=== PATIENT | female | born 1955 | race Caucasian/White ===

== ENCOUNTER 2017-05-27 11:38 | Inpatient (IN) ==
[2017-05-27] MEDS ORDERED: 0.9 % Sodium Chloride 1,000 ML IVC ONE (11:41)
[2017-05-27] MEDS ORDERED: Ondansetron 4 MG/2 ML VIAL IVP ONE (11:41)
--- NOTE | 2017-05-27 11:43 | Emergency Department Note ---
Disposition Clinical Impression: ANUSHA (acute kidney injury), Hypokalemia, Nausea and vomiting Disposition: Admitted As Inpatient Condition: Good General Adult HPI - General Chief complaint: ED Nausea/Vomiting/Diarrhea Stated complaint: N/V Time Seen by Provider: 05/27/17 11:41 - Related Data Home Medications Medication Instructions Recorded Confirmed Albuterol Sulfate [Albuterol 2 puff IH Q4-6H PRN 05/01/17 05/27/17 Inhaler] Aspirin [Lo-Dose Aspirin EC] 81 mg PO DAILY 05/01/17 05/27/17 Budesonide/Formoterol 160/4.5 2 puff IH BIDR 05/01/17 05/27/17 [Symbicort 160/4.5] Bupropion HCl [Wellbutrin Xl] 300 mg PO DAILY 05/01/17 05/27/17 Gabapentin [Neurontin] 400 mg PO TID 05/01/17 05/27/17 Metoclopramide [Reglan] 10 mg PO QIDAC 05/01/17 05/27/17 OLANZapine [Zyprexa] 5 mg PO DAILY 05/01/17 05/27/17 Ondansetron [Zofran] 8 mg PO Q8H PRN 05/01/17 05/27/17 Ranitidine HCl [Zantac] 300 mg PO BID 05/01/17 05/27/17 Rosuvastatin [Crestor] 40 mg PO HS 05/01/17 05/27/17 Sertraline [Zoloft] 100 mg PO DAILY 05/01/17 05/27/17 Tiotropium [Spiriva] 18 mcg IH DAILY 05/01/17 05/27/17 Tizanidine HCl 2 mg PO BID 05/01/17 05/27/17 Topiramate [Topamax] 50 mg PO BID 05/01/17 05/27/17 diazePAM [Valium] 10 mg PO TID PRN 05/01/17 05/27/17 Cholecalciferol (D-3) [Vitamin D] 1,000 unit PO DAILY 05/27/17 05/27/17 Docusate [Colace] 100 mg PO DAILY 05/27/17 05/27/17 Folic Acid 1 mg PO DAILY 05/27/17 05/27/17 Previous Rx's Medication Instructions Recorded Morphine Sulfate [Arymo ER] 15 mg PO BID #6 tab.po.er 05/05/17 Oxycodone HCl/Acetaminophen 1 tab PO 5XD PRN #7 tablet 05/05/17 [Percocet 10-325 mg Tablet] Allergies Allergy/AdvReac Type Severity Reaction Status Date / Time No Known Allergies Allergy Verified 04/30/17 20:44 Past Medical History - Past Medical History Medical history: Reports: aortic aneurysm, COPD, hyperlipidemia, TIA Surgical history: Reports: herniorrhaphy, hysterectomy, orthopedic, other, other Psychiatric history: Reports: anxiety, depression, panic disorder, schizophrenia 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 - Social History Smoking Status: Former smoker Smokeless Tobacco Status: No Alcohol use: Reports: none Drug use: Reports: none Course Vital Signs Temperature 97.0 F L 05/27/17 11:41 Pulse Rate 66 05/27/17 11:41 Respiratory Rate 26 05/27/17 11:41 Blood Pressure 135/81 05/27/17 11:41 O2 Sat by Pulse Oximetry 98 05/27/17 11:41 Temperature 98.4 F 05/28/17 06:36 Pulse Rate 79 05/28/17 06:36 Respiratory Rate 16 05/28/17 08:20 Blood Pressure 135/81 05/28/17 06:36 O2 Sat by Pulse Oximetry 95 05/28/17 08:20 Oxygen Delivery Oxygen Delivery Room Air Medical Decision Making - Lab Data Result diagrams: 05/28/17 01:13 EST 05/28/17 01:13 EST Lab Results 05/27/17 05/27/17 05/27/17 Range/Units 11:55 11:55 12:28 WBC 7.9 (4.3-11.1) K/mcL RBC 4.23 (3.82-4.97) M/mcL Hgb 13.8 (11.5-15.4) g/dL Hct 41.3 (35.3-44.9) % MCV 97.6 (83.0-100.0) fL MCH 32.6 (28.0-33.3) pg MCHC 33.4 (31.6-35.5) g/dL RDW 15.8 H (11.5-14.5) % Plt Count 284 (140-400) K/mcL MPV 10.8 (9.4-12.4) fL Immature Gran % 0.4 (0-4) % Seg Neutrophils % 87.5 % Lymphocytes % 8.4 % Monocytes % 3.3 % Eosinophils % 0.0 % Basophils % 0.4 % Neutrophils # 6.9 (1.6-8.9) K/mcL Lymphocytes # 0.7 (0.6-4.6) K/mcL Monocytes # 0.3 (0.0-1.3) K/mcL Eosinophils # 0.0 (0.0-0.6) K/mcL Basophils # 0.0 (0.0-0.2) K/mcL Sodium 146 H (136-145) mEq/L Potassium 2.3 L* (3.5-4.5) mEq/L Chloride 107 (98-109) mEq/L Carbon Dioxide 23 (19-29) mEq/L BUN 6 L (7-20) mg/dL Creatinine 1.15 H (0.57-1.11) mg/dL Est GFR ( Amer) 58 L (> 60) Est GFR (Non-Af Amer) 48 L (> 60) BUN/Creatinine Ratio 5 L (6-26) Glucose 119 H (70-99) mg/dL Calculated Osmolality 301 H (280-300) Calcium 9.5 (8.6-10.8) mg/dL Magnesium 1.8 (1.6-2.6) mg/dL Total Bilirubin 0.3 (0.2-1.2) mg/dL AST 37 H (5-34) Units/L ALT 13 (0-55) Units/L Alkaline Phosphatase 208 H (38-126) Units/L Serum Total Protein 7.1 (6.0-8.3) g/dL Albumin 3.3 L (3.5-5.0) g/dL Globulin 3.8 H (2.4-3.5) g/dL Albumin/Globulin Ratio 0.9 L (1.1-2.2) Lipase 34 (8-78) Units/L Urine Color Yellow (Yellow) Urine Clarity Cloudy A (Clear) Urine pH 6.0 (5.0-8.0) pH Units Ur Specific [place] > 1.030 H (1.010-1.025) Urine Protein 30 H (Neg-Trace) mg/dL Urine Glucose (UA) Normal (Normal) mg/dL Urine Ketones Negative (Negative) mg/dL Urine Blood Large H (Negative) Urine Nitrite Negative (Negative) Urine Bilirubin Negative (Negative) Urine Urobilinogen Normal (Normal) mg/dL Ur Leukocyte Esterase Negative (Negative) Urine Microscopic RBC 0-3 (0-3) per hpf Urine Microscopic WBC 5-15 H (0-3) per hpf Ur Squamous Epith Cells Many H (None-Few) per lpf Urine Bacteria None Seen (None-Few) per hpf Hyaline Casts Moderate H (None-Few) per lpf Ur Culture Indicated? NO (NO) Attestation Statement - Attestation Attestation: I examined this patient and my medical decision-making was reviewed with the Resident Physician. I agree with the documented findings, disposition and treatment plan as described except to the extent set forth below. [id number] time provided Patient arrives from home by EMS complaining of nausea and vomiting over the past 3 days. She states she is unable tolerate oral intake. She denies new pain, including abdominal pain, but states she does have back pain from fracturing her back 3 weeks ago. She is shaky appearing on exam. She is clutching an emesis bag. 13:05: Patient is hypokalemic. She refused oral potassium supplementation. We will request admission to the medicine service for potassium supplementation , ongoing hydration and continued evaluation.
--- NOTE | 2017-05-27 11:48 | Emergency Department Note ---
Disposition Clinical Impression: ANUSHA (acute kidney injury), Hypokalemia Nausea and vomiting Qualifiers: Vomiting type: unspecified Vomiting Intractability: unspecified Qualified Code( s): R11.2 - Nausea with vomiting, unspecified Disposition: Admitted As Inpatient Condition: Good Referrals: Jessica Espinoza MD [Primary Care Provider] - Forms: ED Satisfaction Letter Time of Disposition: 13:06 General Adult HPI - General Chief complaint: ED Nausea/Vomiting/Diarrhea Stated complaint: N/V Time Seen by Provider: 05/27/17 11:41 Source: patient, EMS Mode of arrival: EMS Limitations: no limitations Nursing Notes Reviewed: Yes Vital Signs Reviewed: Yes - History of Present Illness HPI Narrative: 62-year-old female presenting to the emergency department complaining of vomiting. Patient states the past 3 days she has had nausea and vomiting. She states she has mild discomfort in her abdomen at this time but this was due to all the vomiting she has done. Patient dry heaving in the room at this time. She denies any new occasions or changes in medications. She states she was previously admitted one month ago and was told she had low potassium. She states these symptoms are very similar to that episode. She states for the past 3 days she has had constant vomiting and has not been able to hold down any liquids or foods. Patient significant past medical history of COPD. Patient denies any chest pain, shortness of breath. - Related Data Home Medications Medication Instructions Recorded Confirmed Albuterol Sulfate [Albuterol 2 puff IH Q4-6H PRN 05/01/17 05/01/17 Inhaler] Aspirin [Lo-Dose Aspirin EC] 81 mg PO DAILY 05/01/17 05/01/17 Budesonide/Formoterol 160/4.5 2 puff IH BIDR 05/01/17 05/01/17 [Symbicort 160/4.5] Bupropion HCl [Wellbutrin Xl] 300 mg PO DAILY 05/01/17 05/01/17 Gabapentin [Neurontin] 400 mg PO TID 05/01/17 05/01/17 Meloxicam [Mobic] 15 mg PO DAILY 05/01/17 05/01/17 Metoclopramide [Reglan] 10 mg PO QIDAC 05/01/17 05/01/17 OLANZapine [Zyprexa] 5 mg PO DAILY 05/01/17 05/01/17 Ondansetron [Zofran] 8 mg PO BID PRN 05/01/17 05/01/17 Ranitidine HCl [Zantac] 300 mg PO BID 05/01/17 05/01/17 Rosuvastatin [Crestor] 40 mg PO HS 05/01/17 05/01/17 Sertraline [Zoloft] 100 mg PO DAILY 05/01/17 05/01/17 Tiotropium [Spiriva] 1 puff IH DAILY 05/01/17 05/01/17 Tizanidine HCl 2 mg PO BID 05/01/17 05/01/17 Topiramate [Topamax] 50 mg PO BID 05/01/17 05/01/17 diazePAM [Valium] 10 mg PO TID PRN 05/01/17 05/01/17 Previous Rx's Medication Instructions Recorded Morphine Sulfate [Arymo ER] 15 mg PO BID #6 tab.po.er 05/05/17 Oxycodone HCl/Acetaminophen 1 tab PO 5XD PRN #7 tablet 05/05/17 [Percocet 10-325 mg Tablet] Allergies Allergy/AdvReac Type Severity Reaction Status Date / Time No Known Allergies Allergy Verified 04/30/17 20:44 All systems ED: reviewed and negative except as stated. Constitutional: Denies: fever, chills Eyes: Reports: as per HPI ENT ED: Reports: as per HPI Cardiovascular: Denies: chest pain, palpitations Respiratory: Denies: cough, dyspnea, wheezes Gastrointestinal: Reports: abdominal pain, nausea, vomiting. Denies: diarrhea Genitourinary: Reports: as per HPI Musculoskeletal: Reports: as per HPI Integumentary: Denies: rash, abrasion, lesions Neurological: Reports: as per HPI Psychiatric: Reports: as per HPI Endocrine: Reports: as per HPI Hematological/Lymphatic: Reports: as per HPI Allergic/Immunologic: Reports: as per HPI Past Medical History - Past Medical History Attestation: Yes The following information was validated with the patient. 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 Absent: scleral icterus, conjunctival injection - ENT ENT exam: normal exam, normal oropharynx, mucous membranes dry - Chest Chest inspection: Present: normal inspection, symmetric chest wall rise. Absent : tenderness, rash - Respiratory Respiratory exam: Present: normal lung sounds bilaterally. Absent: respiratory distress, wheezes - Cardiovascular Cardiovascular exam: Present: regular rate, normal rhythm, normal heart sounds - Abdominal Exam Abdominal exam: Present: soft, tenderness, normal bowel sounds. Absent: distention, guarding, rebound, rigidity, organomegaly, Rodriguez's sign, Rovsing's sign, tenderness at McBur[place]'s Point Abdominal tenderness: Present: diffuse, mild - Extremities Exam Extremities exam: Present: normal inspection, full ROM - Neurological Exam Neurological exam: Present: alert, oriented X3 - Psychiatric Psychiatric exam: Present: normal affect, normal mood - Skin Skin exam: Present: warm, intact Course Course Narrative: 62-year-old female presented to the emergency department complaining of vomiting for 3 days. Patient was seen approximately one month ago for similar symptoms and was found to be hypokalemic. We will obtain basic lab work pending CBC, CMP, lipase and magnesium level. We also obtained a UA. We will provide the patient with nausea control this time. Also give her a liter of fluid. Disposition pending results. Patient's alert and oriented times syndrome with stable vital signs at this time. Patient agrees with this plan. - Reevaluation(s) Reevaluation #1: Patient noted to be hypokalemic at 2.3. Magnesium within normal limits at 1.8. EKG within normal limits. We will admit the patient at this time for nausea and vomiting along with hypokalemia. Hospitalist has been paged. Patient's alert and oriented 3 in the room with stable vital signs. Time: 12:55 Reevaluation #2: Patient refuses oral potassium replacement. IV potassium replacement started. Patient agrees to be admitted at this time. She is alert and oriented 3 in the room with stable vital signs. Dr. Palafox accepts the patient. Time: 13:05 Vital Signs Temperature 97.0 F L 05/27/17 11:41 Pulse Rate 66 05/27/17 11:41 Respiratory Rate 26 05/27/17 11:41 Blood Pressure 135/81 05/27/17 11:41 O2 Sat by Pulse Oximetry 98 05/27/17 11:41 Temperature 97.0 F L 05/27/17 11:41 Pulse Rate 66 05/27/17 11:41 Respiratory Rate 26 05/27/17 11:41 Blood Pressure 135/81 05/27/17 11:41 O2 Sat by Pulse Oximetry 98 05/27/17 11:52 Oxygen Delivery Oxygen Delivery Nasal Cannula Medical Decision Making - Lab Data Result diagrams: 05/27/17 11:55 05/27/17 11:55 Lab Results 05/27/17 05/27/17 05/27/17 Range/Units 11:55 11:55 12:28 WBC 7.9 (4.3-11.1) K/mcL RBC 4.23 (3.82-4.97) M/mcL Hgb 13.8 (11.5-15.4) g/dL Hct 41.3 (35.3-44.9) % MCV 97.6 (83.0-100.0) fL MCH 32.6 (28.0-33.3) pg MCHC 33.4 (31.6-35.5) g/dL RDW 15.8 H (11.5-14.5) % Plt Count 284 (140-400) K/mcL MPV 10.8 (9.4-12.4) fL Immature Gran % 0.4 (0-4) % Seg Neutrophils % 87.5 % Lymphocytes % 8.4 % Monocytes % 3.3 % Eosinophils % 0.0 % Basophils % 0.4 % Neutrophils # 6.9 (1.6-8.9) K/mcL Lymphocytes # 0.7 (0.6-4.6) K/mcL Monocytes # 0.3 (0.0-1.3) K/mcL Eosinophils # 0.0 (0.0-0.6) K/mcL Basophils # 0.0 (0.0-0.2) K/mcL Sodium 146 H (136-145) mEq/L Potassium 2.3 L* (3.5-4.5) mEq/L Chloride 107 (98-109) mEq/L Carbon Dioxide 23 (19-29) mEq/L BUN 6 L (7-20) mg/dL Creatinine 1.15 H (0.57-1.11) mg/dL Est GFR ( Amer) 58 L (> 60) Est GFR (Non-Af Amer) 48 L (> 60) BUN/Creatinine Ratio 5 L (6-26) Glucose 119 H (70-99) mg/dL Calculated Osmolality 301 H (280-300) Calcium 9.5 (8.6-10.8) mg/dL Magnesium 1.8 (1.6-2.6) mg/dL Total Bilirubin 0.3 (0.2-1.2) mg/dL AST 37 H (5-34) Units/L ALT 13 (0-55) Units/L Alkaline Phosphatase 208 H (38-126) Units/L Serum Total Protein 7.1 (6.0-8.3) g/dL Albumin 3.3 L (3.5-5.0) g/dL Globulin 3.8 H (2.4-3.5) g/dL Albumin/Globulin Ratio 0.9 L (1.1-2.2) Lipase 34 (8-78) Units/L Urine Color Yellow (Yellow) Urine Clarity Cloudy A (Clear) Urine pH 6.0 (5.0-8.0) pH Units Ur Specific [place] > 1.030 H (1.010-1.025) Urine Protein 30 H (Neg-Trace) mg/dL Urine Glucose (UA) Normal (Normal) mg/dL Urine Ketones Negative (Negative) mg/dL Urine Blood Large H (Negative) Urine Nitrite Negative (Negative) Urine Bilirubin Negative (Negative) Urine Urobilinogen Normal (Normal) mg/dL Ur Leukocyte Esterase Negative (Negative) Urine Microscopic RBC 0-3 (0-3) per hpf Urine Microscopic WBC 5-15 H (0-3) per hpf Ur Squamous Epith Cells Many H (None-Few) per lpf Urine Bacteria None Seen (None-Few) per hpf Hyaline Casts Moderate H (None-Few) per lpf Ur Culture Indicated? NO (NO) - EKG Data EKG #1 EKG attestation: Yes I reviewed and interpreted this EKG. EKG results narrative: Sinus rhythm. 65 bpm. Normal axis. ME interval 136, QRS 101, QTC 340. Nonspecific T-wave abnormalities noted in V2, V3, V4.No signs of ST segment elevation. Compared to previous EKG completed on 04/30/2017 no significant changes noted
[2017-05-27 12:05] LABS: Basophils % 0.4 %; Hematocrit 41.3 % (35.3-44.9); Hemoglobin 13.8 g/dL (11.5-15.4); Immature Granulocytes % 0.4 % (0-4); Lymphocytes # 0.7 K/mcL (0.6-4.6); Lymphocytes % 8.4 %; Mean Corpuscular HGB Conc 33.4 g/dL (31.6-35.5); Mean Corpuscular Hemoglobin 32.6 pg (28.0-33.3); Mean Corpuscular Volume 97.6 fL (83.0-100.0); Mean Platelet Volume 10.8 fL (9.4-12.4); Monocytes # 0.3 K/mcL (0.0-1.3); Monocytes % 3.3 %; Neutrophils # 6.9 K/mcL (1.6-8.9); Platelet Count 284 K/mcL (140-400); Red Blood Count 4.23 M/mcL (3.82-4.97); Red Cell Distribution Width 15.8 % (11.5-14.5); Segmented Neutrophils % 87.5 %
[2017-05-27 12:19] LABS: Albumin 3.3 g/dL (3.5-5.0); Albumin/Globulin Ratio 0.9 (1.1-2.2); Bilirubin,Total 0.3 mg/dL (0.2-1.2); Calcium 9.5 mg/dL (8.6-10.8); Globulin 3.8 g/dL (2.4-3.5); Magnesium 1.8 mg/dL (1.6-2.6); Total Protein 7.1 g/dL (6.0-8.3)
[2017-05-27 12:28] LABS: Potassium 2.3 mEq/L (3.5-4.5)
[2017-05-27 12:36] LABS: Bilirubin,Urine Negative (Negative); Blood,Urine Large (Negative); Clarity,Urine Cloudy (Clear); Color,Urine Yellow (Yellow); Glucose,Urine (UA) Normal (Normal); Ketones,Urine Negative (Negative); Leukocyte Esterase,Urine Negative (Negative); Nitrite,Urine Negative (Negative); Protein,Urine 30 mg/dL (Neg-Trace); Specific Gravity,Urine > 1.030 (1.010-1.025); Urobilinogen,Urine Normal (Normal)
[2017-05-27 12:37] LABS: Bacteria,Urine None Seen per hpf (None-Few); Hyaline Casts,Urine Moderate per lpf (None-Few); Squamous Epithelial Cell,Urine Many per lpf (None-Few)
[2017-05-27 12:41] LABS: RBC,Urine 0-3 per hpf (0-3)
[2017-05-27] MEDS ORDERED: 0.9 % Sodium Chloride 500 ML ONE (14:02)
--- NOTE | 2017-05-27 15:15 | Event Note ---
Date of Encounter: 05/27/17 Time of Encounter: 15:13 Patient seen and examined with nurse practitioner. Patient presents with intractable nausea and vomiting. Suspected this is due to opiate withdrawal. Symptomatic treatment. Abdomen is benign. Start opiates. Replace and recheck electrolytes. Patient is ful code.
[2017-05-27] MEDS ORDERED: 0.9 % Sodium Chloride 1,000 ML IVC SCH (15:30)
[2017-05-27] MEDS ORDERED: diazePAM 10 MG TABLET PO PRN (15:47)
[2017-05-27] MEDS ORDERED: Naloxone 0.4 MG/ML INJ IVP PRN (15:48)
[2017-05-27] MEDS: *HR* Promethazine 25 MG/ML VIAL IVP PRN (15:49)
--- NOTE | 2017-05-27 16:17 | Internal Med History&Physical ---
Date of Encounter: 05/27/17 Time of Encounter: 16:15 Assessment and Plan (1) Opiate withdrawal Current visit: No Status: Resolved 3 day h/o N/V, recent discontinuation of opiates per her PCP. Has been on opiates for many years. Remains nauseas but no vomiting since administration of anti emetics Continue Phenergan and Zofran for nausea Restart OPIATES; Morphine 4mg IVP BID and morphine IVP 2mg q4hr for breakthrough symptoms n/v should improve with administration of opiates technical services manager consult for facility treatment for withdrawal continuous tele, continuous spo2 cbc, cmp, mg, phos Give 1gm mag and 20meq k rider Recheck mg and K at 1800 (2) Nausea & vomiting Current visit: Yes Status: Acute I suspect the N/V is d/t to opiate withdrawal. Patient reports that she has been on chronic opiates for years and her PCP recently discontinued their use this week. A similar event occured in 04/2017 also resulting in N/V with hypokalemia. See plan above Qualifiers: Vomiting type: unspecified Vomiting Intractability: unspecified Qualified Code(s): R11.2 - Nausea with vomiting, unspecified (3) Hypokalemia Current visit: Yes Status: Acute Secondary to 3 day h/o N/V; reporting approximately 15 episodes over the last 72 hours. Recheck serum K at 1800 Received 10MEQ IVPB K rider in ED; refusing any form of oral K replacement Give an additional 20 MEQ K rider to infuse IVPB over 2 hours Continuous tele, CMP in the morning (4) ANUSHA (acute kidney injury) Current visit: Yes Status: Acute ANUSHA secondary to 3 day h/o N/V/ opiate withdrawal. She is unable to tolerate oral fluids and appears dehydrated. BL serum Cr 0.80 todays Cr 1.15 Received a 1l FB in ED Continue to rehydrate with 0.9% NS at 75ml/hr recheck CMP in morning (5) DVT prophylaxis Current visit: Yes Status: Acute HEPARIN SC 5000 UNITS BID Internal Medicine - H&P: HPI Chief complaint: N/V x 3 days secondary to opiate withdrawal Admitted From: Home Plans for Post Hospital Care: Home History of present illness: Ms. Webb is a 62 year old female 62-year-old female presenting to the emergency department complaining of vomiting. Patient states the past 3 days she has had nausea and vomiting. She states she has mild discomfort in her abdomen at this time but this was due to all the vomiting she has done. Patient dry heaving in the room at this time. She denies any new occasions or changes in medications. She states she was previously admitted one month ago and was told she had low potassium. She states these symptoms are very similar to that episode. She states for the past 3 days she has had constant vomiting and has not been able to hold down any liquids or foods. Patient significant past medical history of COPD. Patient denies any chest pain, shortness of breath. Past Med Surg Social Fam HX - Past Medical History Medical history: aortic aneurysm, COPD, hyperlipidemia, TIA Psychiatric history: anxiety, depression, panic disorder, schizophrenia - Past Surgical History Surgical History: herniorrhaphy, hysterectomy, orthopedic, other, other - Social History Smoking Status: Former smoker Packs per day: FORMER: 2 packs X 20 years Smokeless Tobacco Status: No Alcohol use: none Drug use: none - Family History Mother Hx Family Respiratory Disorders: Yes (Lung Cancer) Hx Family Cancer: Yes (Colon cancer) Hx Family GI Disorders: Yes Father Hx Family Cancer: Yes (Lung) Internal Medicine - H&P: Meds Albuterol Sulfate [Albuterol Inhaler] 2 puff IH Q4-6H PRN 05/01/17 [History] Aspirin [Lo-Dose Aspirin EC] 81 mg PO DAILY 05/01/17 [History] Budesonide/Formoterol 160/4.5 [Symbicort 160/4.5] 2 puff IH BIDR 05/01/17 [ History] Bupropion HCl [Wellbutrin Xl] 300 mg PO DAILY 05/01/17 [History] Gabapentin [Neurontin] 400 mg PO TID 05/01/17 [History] Metoclopramide [Reglan] 10 mg PO QIDAC 05/01/17 [History] OLANZapine [Zyprexa] 5 mg PO DAILY 05/01/17 [History] Ondansetron [Zofran] 8 mg PO Q8H PRN 05/01/17 [History] Ranitidine HCl [Zantac] 300 mg PO BID 05/01/17 [History] Rosuvastatin [Crestor] 40 mg PO HS 05/01/17 [History] Sertraline [Zoloft] 100 mg PO DAILY 05/01/17 [History] Tiotropium [Spiriva] 18 mcg IH DAILY 05/01/17 [History] Tizanidine HCl 2 mg PO BID 05/01/17 [History] Topiramate [Topamax] 50 mg PO BID 05/01/17 [History] diazePAM [Valium] 10 mg PO TID PRN 05/01/17 [History] Morphine Sulfate [Arymo ER] 15 mg PO BID #6 tab.po.er 05/05/17 [Rx] Oxycodone HCl/Acetaminophen [Percocet 10-325 mg Tablet] 1 tab PO 5XD PRN #7 tablet 05/05/17 [Rx] Cholecalciferol (D-3) [Vitamin D] 1,000 unit PO DAILY 05/27/17 [History] Docusate [Colace] 100 mg PO DAILY 05/27/17 [History] Folic Acid 1 mg PO DAILY 05/27/17 [History] 3 Allergy/AdvReac Type Severity Reaction Status Date / Time No Known Allergies Allergy Verified 04/30/17 20:44 All Systems PM: A 10-system review of systems was performed and is negative for pertinent findings except as documented above in the HPI. - Constitutional Constitutional: chills, fatigue, weakness, no fever(s) Additional comments: loss of appetite d/t nausea - Cardiovascular Cardiovascular ROS IM: no chest pain, no diaphoresis, no dyspnea, no lightheadedness, no palpitations, no syncope - Respiratory Respiratory: no cough, no dyspnea, no wheezing, no excessive phlegm production - Gastrointestinal Gastrointestinal: abdominal pain (discomfort), belching, nausea, vomiting, no coffee ground emesis, no diarrhea, no dyspepsia, no dysphagia, no early satiety , no excessive flatus, no hematemesis, no melena - Genitourinary Genitourinary: no change in urinary stream, no dysuria, no flank pain, no hematuria - Musculoskeletal Musculoskeletal ROS IM: back pain, no limited range of motion, no muscle weakness, no numbness, no tingling - Integumentary Integumentary IM: no rash, no unusual bruising - Neurological Neurological ROS: no confusion, no convulsions, no focal weakness, no numbness, no tingling, no tremor(s) - Constitutional Vitals: Temp Pulse Resp BP Pulse Ox 97.8 F 78 18 148/80 99 05/27/17 15:48 05/27/17 15:48 05/27/17 15:48 05/27/17 15:48 05/27/17 15:48 General appearance: Present: mild distress, A&O X 3, answers questions appropriately - Head Head exam: Present: atraumatic, normocephalic - Eye Eye exam: Present: EOMI, PERRL, conjuntiva pink, sclera anicteric Pupils: Present: PERRL - Neck Neck exam general surgery: Present: supple, trachea midline. Absent: lymphadenopathy - Respiratory Respiratory exam: Present: CTAB. Absent: accessory muscle use, chest wall tenderness, rales, respiratory distress, rhonchi, wheezes, tachypnea - Cardiovascular Cardiovascular exam: Present: RRR, +S1, +S2. Absent: diastolic murmur, gallop, rubs, systolic murmur, tachycardia - GI/Abdominal GI/Abdominal exam: Present: normal bowel sounds, soft, no peritoneal signs. Absent: distended, firm, guarding, hepatomegaly, rebound, tenderness - Extremities Exam Extremities exam: Present: normal inspection, warm, radial pulses palpable and symmetrical. Absent: calf tenderness, cyanotic, pedal edema, tenderness - Neurological Exam Neurological exam: Present: CN II-XII intact, oriented X3, no focal deficits. Absent: pronater drift, facial droop, speech deficit - Skin Skin exam: Present: dry, intact Internal Med - H&P Results - Labs CBC & Chem 7: 05/27/17 11:55 05/27/17 11:55 - EKG Data -: EKG Interpreted by Myself EKG shows normal: sinus rhythm Rate: normal - EKG Data Prior EKG available for review: yes When compared to previous EKG: there is no significant change EKG comments: 05/27/17 16:19 Sinus rhythm rate of 65, Nonspecific T-wave abnormalities noted in V2, V3, V4, ST elevation. Compared to previous EKG completed on 04/30/2017 no significant changes noted
[2017-05-27] MEDS: Pantoprazole 40 MG VIAL IVP SCH ×2 (16:55→21:36)
[2017-05-27] MEDS ORDERED: *HR* OxyCODONE/APAP 10/325 TABLET PO SCH (17:15)
[2017-05-27] MEDS ORDERED: *HR* Morphine 2 MG/ML SYRINGE IVP SCH ×2 (17:39→17:41)
[2017-05-27] MEDS: *HR* Heparin 5,000 UNIT/ML VIAL SQ SCH (18:04)
[2017-05-27] MEDS: *HR* Morphine 2 MG/ML SYRINGE IVP PRN (18:05)
[2017-05-27] MEDS: *HR* Morphine 2 MG/ML SYRINGE IVP SCH (18:43)
[2017-05-27] MEDS: Ondansetron 4 MG/2 ML VIAL IVP PRN (18:49)
[2017-05-27] MEDS: Budesonide/Formoterol 160/4.5 MDI IH SCH (20:32)
[2017-05-27] MEDS ORDERED: *HR* Morphine Sulfate SR (12 HR) 15 MG TABLET.ER PO SCH (21:00)
[2017-05-27 21:09] LABS: Magnesium 1.4 mg/dL (1.6-2.6)
[2017-05-27 21:14] LABS: Potassium 2.4 mEq/L (3.5-4.5)
[2017-05-27] MEDS: Gabapentin 400 MG CAPSULE PO SCH (21:35)
[2017-05-27] MEDS: tiZANidine 4 MG TABLET PO SCH (21:36)
[2017-05-27] MEDS: Topiramate 25 MG TABLET PO SCH (21:36)
[2017-05-27] MEDS: Famotidine 20 MG TABLET PO SCH (21:36)
[2017-05-27] MEDS ORDERED: Magnesium Sulfate 2 GM in D5% in Water 100 ML IVPB ONE (21:39)
[2017-05-27] MEDS: 0.9 % Sodium Chloride w KCl 20 MEQ/1,000 ML MLS IVC SCH (21:54)
[2017-05-27] MEDS ORDERED: *HR* LORazepam 2 MG/ML VIAL IVP ONE (22:08)
[2017-05-27] MEDS ORDERED: Potassium Chloride 20 MEQ, Lidocaine 1% 2 ML in D5% in Water 250 ML IVPB ONE (22:09)
[2017-05-28] MEDS: *HR* Promethazine 25 MG/ML VIAL IVP PRN ×2 (00:42→09:06)
[2017-05-28] MEDS: *HR* Morphine 2 MG/ML SYRINGE IVP PRN ×3 (00:42→15:10)
[2017-05-28 01:09] LABS: Magnesium 2.4 mg/dL (1.6-2.6); Potassium 2.6 mEq/L (3.5-4.5)
[2017-05-28 01:15] LABS: Alanine Aminotransferase 12 Units/L (0-55); Albumin 2.9 g/dL (3.5-5.0); Albumin/Globulin Ratio 0.9 (1.1-2.2); Alkaline Phosphatase 171 Units/L (38-126); Aspartate Amino Transferase 40 Units/L (5-34); BUN/Creatinine Ratio 4 (6-26); Bilirubin,Total 0.2 mg/dL (0.2-1.2); Calcium 8.3 mg/dL (8.6-10.8); Carbon Dioxide 24 mEq/L (19-29); Chloride 111 mEq/L (98-109); Globulin 3.1 g/dL (2.4-3.5); Glucose 112 mg/dL (70-99); Magnesium 2.4 mg/dL (1.6-2.6); Osmolality,Calculated 298 (280-300); Phosphorous 1.4 mg/dL (2.3-4.7); Potassium 2.6 mEq/L (3.5-4.5); Sodium 145 mEq/L (136-145); eGFR For African Americans > 60 (> 60); eGFR For Non-African Americans 59 (> 60)
[2017-05-28 01:25] LABS: Blood Urea Nitrogen 4 mg/dL (7-20)
[2017-05-28 01:28] LABS: Basophils % 0.4 %; Eosinophils % 0.5 %; Hematocrit 37.1 % (35.3-44.9); Hemoglobin 12.3 g/dL (11.5-15.4); Immature Granulocytes % 0.3 % (0-4); Lymphocytes # 1.5 K/mcL (0.6-4.6); Mean Corpuscular HGB Conc 33.2 g/dL (31.6-35.5); Mean Corpuscular Volume 99.5 fL (83.0-100.0); Mean Platelet Volume 10.9 fL (9.4-12.4); Monocytes # 0.4 K/mcL (0.0-1.3); Monocytes % 5.6 %; Neutrophils # 5.3 K/mcL (1.6-8.9); Platelet Count 218 K/mcL (140-400); Red Blood Count 3.73 M/mcL (3.82-4.97); Red Cell Distribution Width 15.9 % (11.5-14.5); Segmented Neutrophils % 73.2 %
[2017-05-28] MEDS: Ondansetron 4 MG/2 ML VIAL IVP PRN ×2 (04:38→13:33)
[2017-05-28] MEDS: 0.9 % Sodium Chloride w KCl 20 MEQ/1,000 ML MLS IVC SCH ×2 (05:55→15:10)
[2017-05-28] MEDS: *HR* Heparin 5,000 UNIT/ML VIAL SQ SCH ×2 (05:56→17:54)
[2017-05-28] MEDS: *HR* Morphine 2 MG/ML SYRINGE IVP SCH ×2 (05:56→19:14)
[2017-05-28] MEDS: Budesonide/Formoterol 160/4.5 MDI IH SCH ×2 (08:20→20:34)
[2017-05-28] MEDS: Tiotropium 18 MCG inhalation IH SCH (08:20)
[2017-05-28] MEDS: Pantoprazole 40 MG VIAL IVP SCH ×2 (09:06→20:56)
[2017-05-28] MEDS: Famotidine 20 MG TABLET PO SCH ×2 (10:25→20:56)
[2017-05-28] MEDS: Topiramate 25 MG TABLET PO SCH ×2 (10:25→20:56)
[2017-05-28] MEDS: Folic Acid 1 MG TABLET PO SCH (10:25)
[2017-05-28] MEDS: Aspirin Enteric Coated 81 MG Tablet PO SCH (10:25)
[2017-05-28] MEDS: BuPROPion XL (24 HR) 150 MG TABLET PO SCH (10:25)
[2017-05-28] MEDS: Gabapentin 400 MG CAPSULE PO SCH ×3 (10:25→20:56)
[2017-05-28] MEDS: tiZANidine 4 MG TABLET PO SCH ×2 (10:26→20:55)
--- NOTE | 2017-05-28 11:23 | Internal Med Progress Note ---
Date of Encounter: 05/28/17 Time of Encounter: 11:17 - Assessment and plan (1) Hypokalemia Current Visit: Yes Status: Acute Assessment and plan: Replaced Repeat Chem BID Encourage oral intake Mag WNL now (2) Opiate withdrawal Current Visit: Yes Status: Acute Assessment and plan: Continue opiates SW and Pain management eval BP is WNL (3) Spinal stenosis of lumbar region with radiculopathy Current Visit: Yes Status: Chronic Assessment and plan: Chronic, continue pain med (4) Hypomagnesemia Current Visit: Yes Status: Acute Assessment and plan: Replaced, WNL this morning, continue to monitor (5) COPD (chronic obstructive pulmonary disease) Current Visit: Yes Status: Chronic Assessment and plan: Not in exacerbation Qualifiers: COPD type: unspecified COPD Qualified Code(s): J44.9 - Chronic obstructive pulmonary disease, unspecified (6) Chronic respiratory failure with hypoxia Current Visit: Yes Status: Chronic Assessment and plan: O2 prn (7) Major depression, chronic Current Visit: Yes Status: Chronic Assessment and plan: Continue home meds (8) DVT prophylaxis Current Visit: Yes Status: Acute Assessment and plan: Heparin SQ (9) Hyperlipidemia Current Visit: Yes Status: Chronic Assessment and plan: Continue home meds Qualifiers: Hyperlipidemia type: unspecified Qualified Code(s): E78.5 - Hyperlipidemia , unspecified (10) ANUSHA (acute kidney injury) Current Visit: Yes Status: Resolved Assessment and plan: Resolved with IVF hydration Continue to monitor Encourage oral intake - Subjective Interval history: 62 F with opiate dependence Taken off her medications by her PCP due to breaking her contract She is here and being managed for opiate withdrawal and multiple electrolyte abnormalities Per RN, patient refusing po meds due to nausea and vomiting Of note, patient was admitted and discharged last month with similar complains as well SW and Pain management will be consulted - Constitutional Vitals: Temp Pulse Resp BP Pulse Ox 98.4 F 79 16 135/81 95 05/28/17 06:36 05/28/17 06:36 05/28/17 08:20 05/28/17 06:36 05/28/17 08:20 General appearance: Present: A&O X 3, pleasant, no acute distress, answers questions appropriately - Head Head exam: Present: atraumatic, normocephalic - Eye Eye exam: Present: PERRL, conjuntiva pink, sclera anicteric Pupils: Present: PERRL - Neck Neck exam general surgery: Present: supple, trachea midline. Absent: lymphadenopathy - Respiratory Respiratory exam: Present: CTAB. Absent: accessory muscle use, rales, rhonchi, wheezes - Cardiovascular Cardiovascular exam: Present: RRR, +S1, +S2. Absent: diastolic murmur, gallop, rubs, systolic murmur - GI/Abdominal GI/Abdominal exam: Present: normal bowel sounds, soft, no peritoneal signs. Absent: distended, tenderness - Extremities Exam Extremities exam: Present: warm, radial pulses palpable and symmetrical. Absent : calf tenderness, cyanotic, pedal edema - Neurological Exam Neurological exam: Present: alert, CN II-XII intact, oriented X3, no focal deficits. Absent: pronater drift, facial droop, speech deficit - Skin Skin exam: Present: dry, intact Internal Medicine: Result - Labs CBC & Chem 7: 05/28/17 01:13 EST 05/28/17 01:13 EST Labs: Short CBC 05/28/17 Range/Units 01:13 EST WBC 7.3 (4.3-11.1) K/mcL Hgb 12.3 D (11.5-15.4) g/dL Hct 37.1 (35.3-44.9) % Plt Count 218 (140-400) K/mcL Neutrophils # 5.3 (1.6-8.9) K/mcL BMP 05/27/17 05/28/17 05/28/17 20:56 01:13 EST 01:13 EST Sodium 145 Potassium 2.4 L* 2.6 L 2.6 L Chloride 111 H Carbon Dioxide 24 BUN 4 L Creatinine 0.95 Glucose 112 H Calcium 8.3 L Liver Function 05/28/17 Range/Units 01:13 EST Total Bilirubin 0.2 (0.2-1.2) mg/dL AST 40 H (5-34) Units/L ALT 12 (0-55) Units/L Alkaline Phosphatase 171 H (38-126) Units/L Albumin 2.9 L (3.5-5.0) g/dL Consult Discharge Plan - Plan Referrals: Jessica Espinoza MD [Primary Care Provider] -
[2017-05-29] MEDS: 0.9 % Sodium Chloride w KCl 20 MEQ/1,000 ML MLS IVC SCH ×2 (00:13→10:08)
[2017-05-29] MEDS: *HR* Promethazine 25 MG/ML VIAL IVP PRN (00:21)
[2017-05-29] MEDS: *HR* Morphine 2 MG/ML SYRINGE IVP PRN ×2 (03:29→14:45)
[2017-05-29 03:44] LABS: Basophils % 0.5 %; Eosinophils # 0.1 K/mcL (0.0-0.6); Eosinophils % 1.6 %; Hematocrit 36.9 % (35.3-44.9); Hemoglobin 11.6 g/dL (11.5-15.4); Immature Granulocytes % 0.2 % (0-4); Lymphocytes # 1.6 K/mcL (0.6-4.6); Lymphocytes % 25.5 %; Mean Corpuscular HGB Conc 31.4 g/dL (31.6-35.5); Mean Corpuscular Volume 104.8 fL (83.0-100.0); Mean Platelet Volume 11.7 fL (9.4-12.4); Monocytes # 0.4 K/mcL (0.0-1.3); Monocytes % 5.6 %; Neutrophils # 4.2 K/mcL (1.6-8.9); Platelet Count 123 K/mcL (140-400); Red Blood Count 3.52 M/mcL (3.82-4.97); Red Cell Distribution Width 16.2 % (11.5-14.5); Segmented Neutrophils % 66.6 %
[2017-05-29 04:05] LABS: BUN/Creatinine Ratio 5 (6-26); Calcium 8.4 mg/dL (8.6-10.8); Carbon Dioxide 21 mEq/L (19-29); Chloride 114 mEq/L (98-109); Glucose 75 mg/dL (70-99); Osmolality,Calculated 292 (280-300); Potassium 3.3 mEq/L (3.5-4.5); Sodium 143 mEq/L (136-145); eGFR For African Americans > 60 (> 60); eGFR For Non-African Americans > 60 (> 60)
[2017-05-29 04:11] LABS: Blood Urea Nitrogen 4 mg/dL (7-20)
[2017-05-29] MEDS: *HR* Heparin 5,000 UNIT/ML VIAL SQ SCH ×2 (05:36→21:58)
[2017-05-29] MEDS: Ondansetron 4 MG/2 ML VIAL IVP PRN (05:36)
[2017-05-29] MEDS: *HR* Morphine 2 MG/ML SYRINGE IVP SCH (05:37)
[2017-05-29] MEDS: BuPROPion XL (24 HR) 150 MG TABLET PO SCH (09:16)
[2017-05-29] MEDS: Gabapentin 400 MG CAPSULE PO SCH ×3 (09:16→21:57)
[2017-05-29] MEDS: Folic Acid 1 MG TABLET PO SCH (09:16)
[2017-05-29] MEDS: Topiramate 25 MG TABLET PO SCH ×2 (09:17→21:58)
[2017-05-29] MEDS: Famotidine 20 MG TABLET PO SCH ×2 (09:17→21:57)
[2017-05-29] MEDS: Aspirin Enteric Coated 81 MG Tablet PO SCH (09:17)
[2017-05-29] MEDS: tiZANidine 4 MG TABLET PO SCH ×2 (09:17→21:57)
--- NOTE | 2017-05-29 09:34 | Electrocardiograph Report ---
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
[2017-05-29] MEDS: Tiotropium 18 MCG inhalation IH SCH (10:25)
[2017-05-29] MEDS: Budesonide/Formoterol 160/4.5 MDI IH SCH ×2 (10:25→19:58)
--- NOTE | 2017-05-29 10:34 | Discharge Summary ---
Date of Encounter: 05/29/17 Time of Encounter: 10:00 - Discharge Diagnosis (1) Hypokalemia Status: Acute (2) Opiate withdrawal Status: Acute (3) Spinal stenosis of lumbar region with radiculopathy Status: Chronic (4) Hypomagnesemia Status: Acute (5) COPD (chronic obstructive pulmonary disease) Status: Chronic Qualifiers: COPD type: unspecified COPD Qualified Code(s): J44.9 - Chronic obstructive pulmonary disease, unspecified (6) Chronic respiratory failure with hypoxia Status: Chronic (7) Major depression, chronic Status: Chronic (8) DVT prophylaxis Status: Acute (9) Hyperlipidemia Status: Chronic Qualifiers: Hyperlipidemia type: unspecified Qualified Code(s): E78.5 - Hyperlipidemia , unspecified (10) ANUSHA (acute kidney injury) Status: Resolved - Discharge Medications Home Medications: Albuterol Sulfate [Albuterol Inhaler] 2 puff IH Q4-6H PRN 05/01/17 [History] Aspirin [Lo-Dose Aspirin EC] 81 mg PO DAILY 05/01/17 [History] Budesonide/Formoterol 160/4.5 [Symbicort 160/4.5] 2 puff IH BIDR 05/01/17 [ History] Bupropion HCl [Wellbutrin Xl] 300 mg PO DAILY 05/01/17 [History] Gabapentin [Neurontin] 400 mg PO TID 05/01/17 [History] Metoclopramide [Reglan] 10 mg PO QIDAC 05/01/17 [History] OLANZapine [Zyprexa] 5 mg PO DAILY 05/01/17 [History] Ondansetron [Zofran] 8 mg PO Q8H PRN 05/01/17 [History] Ranitidine HCl [Zantac] 300 mg PO BID 05/01/17 [History] Rosuvastatin [Crestor] 40 mg PO HS 05/01/17 [History] Sertraline [Zoloft] 100 mg PO DAILY 05/01/17 [History] Tiotropium [Spiriva] 18 mcg IH DAILY 05/01/17 [History] Tizanidine HCl 2 mg PO BID 05/01/17 [History] Topiramate [Topamax] 50 mg PO BID 05/01/17 [History] diazePAM [Valium] 10 mg PO TID PRN 05/01/17 [History] Morphine Sulfate [Arymo ER] 15 mg PO BID #6 tab.po.er 05/05/17 [Rx] Oxycodone HCl/Acetaminophen [Percocet 10-325 mg Tablet] 1 tab PO 5XD PRN #7 tablet 05/05/17 [Rx] Cholecalciferol (D-3) [Vitamin D] 1,000 unit PO DAILY 05/27/17 [History] Docusate [Colace] 100 mg PO DAILY 05/27/17 [History] Folic Acid 1 mg PO DAILY 05/27/17 [History] Allergies/Adverse Reactions: 3 Allergy/AdvReac Type Severity Reaction Status Date / Time No Known Allergies Allergy Verified 04/30/17 20:44 Date of admission: 05/27/17 15:48 Primary care physician: Jessica Espinoza MD Consults: 05/28/17 13:39 Consult to Pain Management [CONS] Routine Consulting Provider: Pain Mgt Interventional Vanessa Reason for Consult: Chronic opiate use, presented in withdrawal due to break in contract with PCP Call Completed: No - Patient Status Condition: Good - Discharge Instructions Follow Up With: Jessica Espinoza MD [Primary Care Provider] - Hospital course: Ms. Webb is a 62 year old female - Time Spent with Patient Total time spent providing and/or coordinating discharge services: - Constitutional Vitals: Temp Pulse Resp BP Pulse Ox 97.8 F 67 17 120/83 97 05/29/17 06:59 05/29/17 06:59 05/29/17 06:59 05/29/17 06:59 05/29/17 06:59 General appearance: Present: A&O X 3, pleasant, no acute distress, answers questions appropriately - Head Head exam: Present: atraumatic, normocephalic - Eye Eye exam: Present: PERRL, conjuntiva pink, sclera anicteric Pupils: Present: PERRL - Neck Neck exam general surgery: Present: supple, trachea midline. Absent: lymphadenopathy - Respiratory Respiratory exam: Present: CTAB. Absent: accessory muscle use, rales, rhonchi, wheezes - Cardiovascular Cardiovascular exam: Present: RRR, +S1, +S2. Absent: diastolic murmur, gallop, rubs, systolic murmur - GI/Abdominal GI/Abdominal exam: Present: normal bowel sounds, soft, no peritoneal signs. Absent: distended, tenderness - Extremities Exam Extremities exam: Present: warm, radial pulses palpable and symmetrical. Absent : calf tenderness, cyanotic, pedal edema - Neurological Exam Neurological exam: Present: alert, CN II-XII intact, oriented X3, no focal deficits. Absent: pronater drift, facial droop, speech deficit - Skin Skin exam: Present: dry, intact
--- NOTE | 2017-05-29 10:56 | Pain Management Consultation ---
Date of Encounter: 05/29/17 Time of Encounter: 10:53 Assessment and Plan (1) Chronic low back pain Current Visit: Yes Status: Chronic This patient has been taking oral opioids for the better part of the past 6 years without doing anything definitive treatment the underlying issues in her lumbar spine. MRI, history, and exam are consistent for lumbar spondylosis, lumbar stenosis, and a subacute compression deformity noted at L4. Given the history of opioid misuse, recommend discharging the patient home on non-opioid oral analgesics such as NSAIDs if she can tolerate them as well as gabapentin. Specifically recommend that the gabapentin dose should be titrated upward from what she describes as 400 mg 3 times per day. If she can tolerate 600 3 times a day or even 800 mg 3 times a day, that is a step forward controlling radiating pain. Recommend using the inpatient admission to wean her daily opioid dosage to 0 prior to discharge. The patient has been a patient with Dr. Zuniga in the past, and I recommend very close follow-up with him. We will also be in a position to monitor the L4 compression fracture and offer kyphoplasty repair if that pathology is identified as a main medical driver of her low back pain. However, given the time course and imaging findings, do not recommend consideration of kyphoplasty right now. She does have good interventional options such as lumbar radiofrequency ablation or even spinal cord stimulation as long-term pain control interventions. The assessment and plan as outlined above was discussed with the patient and/or family members who expressed understanding and agreement. All questions were answered. Qualifiers: Back pain laterality: bilateral Sciatica presence: with sciatica Sciatica laterality: bilateral sciatica Qualified Code(s): M54.42 - Lumbago with sciatica, left side; M54.41 - Lumbago with sciatica, right side; M54.41 - Lumbago with sciatica, right side; G89.29 - Other chronic pain; G89.29 - Other chronic pain History of Present Illness Chief complaint: back pain HPI: Ms. Webb is a 62 year old female suffering with back pain for the past 6 years. She has been treated with oral opioids from her primary care providers for that. At time as well. She describes pain in her back is being severe, 8 or 9/10 on a daily basis for the past 6 years. In the past 6 months, she has also noted pain radiating into the front of both of her legs. She says this particular symptom began when she stood up from a kitchen chair and twisted her back which caused a pain in the front of her thighs. To this day, she feels burning shooting pain in both legs as well as a deep aching sensation in her lower back. She is able to walk. She denies any bowel or bladder incontinence. She states that her oral pain medications control the pain approximately 50% while she had access to them. She states that these medications were taken away because prescribers have decided not to prescribe opioids in the past or she has had issues with misusing her pain medication such as taking too much and running out early which cause withdrawal. Past Med Surg Social Fam HX - Past Medical History Medical history: aortic aneurysm, COPD, hyperlipidemia, TIA Psychiatric history: anxiety, depression, panic disorder, schizophrenia - Past Surgical History Surgical History: herniorrhaphy, hysterectomy, orthopedic, other, other - Social History Smoking Status: Former smoker Packs per day: FORMER: 2 packs X 20 years Smokeless Tobacco Status: No Alcohol use: none Drug use: none - Family History Mother Hx Family Respiratory Disorders: Yes (Lung Cancer) Hx Family Cancer: Yes (Colon cancer) Hx Family GI Disorders: Yes Father Hx Family Cancer: Yes (Lung) Medications and Allergies Albuterol Sulfate [Albuterol Inhaler] 2 puff IH Q4-6H PRN 05/01/17 [History] Aspirin [Lo-Dose Aspirin EC] 81 mg PO DAILY 05/01/17 [History] Budesonide/Formoterol 160/4.5 [Symbicort 160/4.5] 2 puff IH BIDR 05/01/17 [ History] Bupropion HCl [Wellbutrin Xl] 300 mg PO DAILY 05/01/17 [History] Gabapentin [Neurontin] 400 mg PO TID 05/01/17 [History] Metoclopramide [Reglan] 10 mg PO QIDAC 05/01/17 [History] OLANZapine [Zyprexa] 5 mg PO DAILY 05/01/17 [History] Ondansetron [Zofran] 8 mg PO Q8H PRN 05/01/17 [History] Ranitidine HCl [Zantac] 300 mg PO BID 05/01/17 [History] Rosuvastatin [Crestor] 40 mg PO HS 05/01/17 [History] Sertraline [Zoloft] 100 mg PO DAILY 05/01/17 [History] Tiotropium [Spiriva] 18 mcg IH DAILY 05/01/17 [History] Tizanidine HCl 2 mg PO BID 05/01/17 [History] Topiramate [Topamax] 50 mg PO BID 05/01/17 [History] diazePAM [Valium] 10 mg PO TID PRN 05/01/17 [History] Morphine Sulfate [Arymo ER] 15 mg PO BID #6 tab.po.er 05/05/17 [Rx] Oxycodone HCl/Acetaminophen [Percocet 10-325 mg Tablet] 1 tab PO 5XD PRN #7 tablet 05/05/17 [Rx] Cholecalciferol (D-3) [Vitamin D] 1,000 unit PO DAILY 05/27/17 [History] Docusate [Colace] 100 mg PO DAILY 05/27/17 [History] Folic Acid 1 mg PO DAILY 05/27/17 [History] 3 Allergy/AdvReac Type Severity Reaction Status Date / Time No Known Allergies Allergy Verified 04/30/17 20:44 Review of Systems - Constitutional Constitutional ROS IM: no photophobia, no phonophobia, no daytime sleepiness, no fever(s), no stops breathing during sleep - EENT Nose, mouth and throat: no headache(s), no neck pain, no neck trauma - Cardiovascular Cardiovascular ROS: no chest pain, no leg edema, no lightheadedness - Respiratory Respiratory: no pain on inspiration, no pain with cough - Gastrointestinal Gastrointestinal: no abdominal pain, no constipation, no diarrhea, no heartburn - Genitourinary Genitourinary ROS: no difficulty urinating, no flank pain, no urinary hesitancy - Musculoskeletal Musculoskeletal ROS: no muscle weakness, no numbness, no radiating pain into limb, no tingling - Integumentary Integumentary: no erythema, no lesions, no swelling - Neurological Neurological ROS: no abnormal gait, no behavioral changes, no focal weakness, no radicular pain - Psychiatric Psychiatric general: no anxiety, no confusion, no depression - Hematologic/Lymphatic Hematologic/Lymphatic pediatric: no easy bleeding, no easy bruising Physical Exam Initial Vital Signs Temp Pulse Resp BP Pulse Ox 97.0 F L 66 26 135/81 98 05/27/17 11:41 05/27/17 11:41 05/27/17 11:41 05/27/17 11:41 05/27/17 11:41 - Additional Findings EYES:: pupils equal and round, no myosis. SKIN:: no areas of echymoses or petechiae CARDIOVASCULAR:: regular rate and rhythm PULMONARY:: Quiet, normal respiratory pattern. GASTROINTESTINAL:: nontender abdomen MUSCULOSKELETAL INSPECTION:: no surgical scarring in lumbar area. PALPATION:: paraspinous musculature is tender to deep palpation in the lumbar area bilaterally. There is tenderness over the spinous processes of L4 and L5 in particular. ROM:: Active flexion and extension are reduced in the lumbar area. Active Rotation is reduced in the lumbar area. Facet loading positions (extension with sidebending and rotation) are positive in the lumbar area. STRENGTH:: RIGHT hip flexors: 5/5 :: LEFT hip flexors: 5/5 RIGHT hip adduction 5/5 :: LEFT hip adduction 5/5 RIGHT hip abduction 5/5 :: LEFT hip abduction 5/5 RIGHT knee extension 5/5 :: LEFT knee extension 5/5 RIGHT knee flexion 5/5 :: LEFT knee flexion 5/5 RIGHT ankle dorsiflexion 5/5 :: LEFT ankle dorsiflexion 5/5 RIGHT ankle plantarflexion 5/5 :: LEFT ankle plantarflexion 5/5 RIGHT great toe dorsiflexion 5/5 :: LEFT great toe dorsiflexion 5/5 RIGHT great toe plantarflexion 5/5 :: LEFT great toe plantarflexion 5/5 NEUROLOGIC SENSATION:: hypesthesia is noted in lower extremity dermatomes, distal to the knee in the anterior and posterior aspect of both lower extremities SIGNS OF NEUROVASCULAR COMPRESSION Clonus: none found bilateral with passive ROM at ankle joint Spasticity:: none Atrophy:: not present in UE or LE musculature Fasciculation:: not present in UE or LE musculature PSYCHIATRIC:: ORIENTATION:: awake and alert. INSIGHT:: good awareness of illness. AFFECT:: pleasant. Radiology Images Viewed By Me:: 05/01/2017 lumbar MRI shows relatively acute inferior endplate compression fracture at L4. There are disc spacers present at L1-L2 and L2-L3. The central canal is relatively stenotic especially posterior to the L3-L4 interspace where a broad-based disc herniation causes indentation of the thecal sac. I have reviewed and agree with information documented in the scribed documentation, ROS, patient medications, allergies, medical history, surgical history, social history, and family history. Results - Labs 05/29/17 03:26 05/29/17 03:26 Abnormal lab results RBC 3.52 M/mcL (3.82-4.97) L 05/29/17 03:26 MCV 104.8 fL (83.0-100.0) H 05/29/17 03:26 MCHC 31.4 g/dL (31.6-35.5) L 05/29/17 03:26 RDW 16.2 % (11.5-14.5) H 05/29/17 03:26 Plt Count 123 K/mcL (140-400) L 05/29/17 03:26 Potassium 3.3 mEq/L (3.5-4.5) L 05/29/17 03:26 Chloride 114 mEq/L (98-109) H 05/29/17 03:26 BUN 4 mg/dL (7-20) L 05/29/17 03:26 BUN/Creatinine Ratio 5 (6-26) L 05/29/17 03:26 POC Glucose 104 (58-89) H 05/28/17 23:42 Calcium 8.4 mg/dL (8.6-10.8) L 05/29/17 03:26 Phosphorus 1.4 mg/dL (2.3-4.7) L 05/28/17 01:13 EST AST 40 Units/L (5-34) H 05/28/17 01:13 EST Alkaline Phosphatase 171 Units/L (38-126) H 05/28/17 01:13 EST Albumin 2.9 g/dL (3.5-5.0) L 05/28/17 01:13 EST Albumin/Globulin Ratio 0.9 (1.1-2.2) L 05/28/17 01:13 EST Urine Clarity Cloudy (Clear) A 05/27/17 12:28 Ur Specific [place] > 1.030 (1.010-1.025) H 05/27/17 12:28 Urine Protein 30 mg/dL (Neg-Trace) H 05/27/17 12:28 Urine Blood Large (Negative) H 05/27/17 12:28 Urine Microscopic WBC 5-15 per hpf (0-3) H 05/27/17 12:28 Ur Squamous Epith Cells Many per lpf (None-Few) H 05/27/17 12:28 Hyaline Casts Moderate per lpf (None-Few) H 05/27/17 12:28 Diabetes panel 05/28/17 05/29/17 Range/Units 14:38 03:26 Sodium 143 (136-145) mEq/L Potassium 3.1 L 3.3 L (3.5-4.5) mEq/L Chloride 114 H (98-109) mEq/L Carbon Dioxide 21 (19-29) mEq/L BUN 4 L (7-20) mg/dL Creatinine 0.73 (0.57-1.11) mg/dL Glucose 75 (70-99) mg/dL Calcium 8.4 L (8.6-10.8) mg/dL Calcium panel 05/29/17 Range/Units 03:26 Calcium 8.4 L (8.6-10.8) mg/dL Pituitary panel 05/28/17 05/29/17 Range/Units 14:38 03:26 Sodium 143 (136-145) mEq/L Potassium 3.1 L 3.3 L (3.5-4.5) mEq/L Chloride 114 H (98-109) mEq/L Carbon Dioxide 21 (19-29) mEq/L BUN 4 L (7-20) mg/dL Creatinine 0.73 (0.57-1.11) mg/dL Glucose 75 (70-99) mg/dL Calcium 8.4 L (8.6-10.8) mg/dL Adrenal panel 05/28/17 05/29/17 Range/Units 14:38 03:26 Sodium 143 (136-145) mEq/L Potassium 3.1 L 3.3 L (3.5-4.5) mEq/L Chloride 114 H (98-109) mEq/L Carbon Dioxide 21 (19-29) mEq/L BUN 4 L (7-20) mg/dL Creatinine 0.73 (0.57-1.11) mg/dL Glucose 75 (70-99) mg/dL Calcium 8.4 L (8.6-10.8) mg/dL All other labs normal. Consult Discharge Plan - Plan Referrals: Jessica Espinoza MD [Primary Care Provider] -
--- NOTE | 2017-05-29 11:48 | Internal Med Progress Note ---
Date of Encounter: 05/29/17 Time of Encounter: 11:48 - Assessment and plan (1) Hypokalemia Current Visit: Yes Status: Acute Assessment and plan: Replaced Improving, replace orally and continue to monitor (2) Opiate withdrawal Current Visit: Yes Status: Acute Assessment and plan: Continue opiates, wean off gradually. \ High risk due to patiet receiving IV Morphine Pain management eval appreciated, will follow recs (3) Spinal stenosis of lumbar region with radiculopathy Current Visit: Yes Status: Chronic Assessment and plan: Chronic, neuropathic, increase gabapentin as tolerated (4) Hypomagnesemia Current Visit: Yes Status: Resolved (5) COPD (chronic obstructive pulmonary disease) Current Visit: Yes Status: Chronic Assessment and plan: Not in exacerbation Qualifiers: COPD type: unspecified COPD Qualified Code(s): J44.9 - Chronic obstructive pulmonary disease, unspecified (6) Chronic respiratory failure with hypoxia Current Visit: Yes Status: Chronic Assessment and plan: O2 prn (7) Major depression, chronic Current Visit: Yes Status: Chronic Assessment and plan: Continue home meds (8) DVT prophylaxis Current Visit: Yes Status: Acute Assessment and plan: Heparin SQ (9) Hyperlipidemia Current Visit: Yes Status: Chronic Assessment and plan: Continue home meds Qualifiers: Hyperlipidemia type: unspecified Qualified Code(s): E78.5 - Hyperlipidemia , unspecified (10) ANUSHA (acute kidney injury) Current Visit: Yes Status: Resolved Assessment and plan: Resolved with IVF hydration Continue to monitor Encourage oral intake - Subjective Interval history: 62 F with opiate dependence Taken off her medications by her PCP due to breaking her contract She is here and being managed for opiate withdrawal and multiple electrolyte abnormalities She has made clinical improvement and tolerating po Pain mgt consulted and recommendations noted to wean off IV pain meds with goal of discharging patient on no opiates at discharge He also recommends to titrate gabapentin appropriately Patient has no new complains today., she is tolerating orally She received 18mg of IV morphine yesterday, we will wean off - Constitutional Vitals: Temp Pulse Resp BP Pulse Ox 98.0 F 67 17 106/68 93 05/29/17 10:49 05/29/17 10:49 05/29/17 10:49 05/29/17 10:49 05/29/17 10:49 General appearance: Present: A&O X 3, pleasant, no acute distress, answers questions appropriately - Head Head exam: Present: atraumatic, normocephalic - Eye Eye exam: Present: PERRL, conjuntiva pink, sclera anicteric Pupils: Present: PERRL - Neck Neck exam general surgery: Present: supple, trachea midline. Absent: lymphadenopathy - Respiratory Respiratory exam: Present: CTAB. Absent: accessory muscle use, rales, rhonchi, wheezes - Cardiovascular Cardiovascular exam: Present: RRR, +S1, +S2. Absent: diastolic murmur, gallop, rubs, systolic murmur - GI/Abdominal GI/Abdominal exam: Present: normal bowel sounds, soft, no peritoneal signs. Absent: distended, tenderness - Extremities Exam Extremities exam: Present: warm, radial pulses palpable and symmetrical. Absent : calf tenderness, cyanotic, pedal edema - Neurological Exam Neurological exam: Present: alert, CN II-XII intact, oriented X3, no focal deficits. Absent: pronater drift, facial droop, speech deficit - Skin Skin exam: Present: dry, intact Internal Medicine: Result - Labs CBC & Chem 7: 05/29/17 03:26 05/29/17 03:26 Labs: Short CBC 05/29/17 Range/Units 03:26 WBC 6.3 (4.3-11.1) K/mcL Hgb 11.6 (11.5-15.4) g/dL Hct 36.9 (35.3-44.9) % Plt Count 123 L (140-400) K/mcL Neutrophils # 4.2 (1.6-8.9) K/mcL BMP 05/28/17 05/29/17 14:38 03:26 Sodium 143 Potassium 3.1 L 3.3 L Chloride 114 H Carbon Dioxide 21 BUN 4 L Creatinine 0.73 Glucose 75 Calcium 8.4 L Consult Discharge Plan - Plan Referrals: Dustin Zuniga DO [Partnered Physician] - 06/05/17 7:50 am Jessica Espinoza MD [Primary Care Provider] -
[2017-05-29] MEDS: Acetaminophen 325 MG TABLET PO PRN (21:57)
[2017-05-30] MEDS: *HR* Heparin 5,000 UNIT/ML VIAL SQ SCH (04:49)
[2017-05-30] MEDS: *HR* Morphine 2 MG/ML SYRINGE IVP PRN (04:49)
[2017-05-30 06:55] LABS: Basophils % 0.1 %; Eosinophils # 0.2 K/mcL (0.0-0.6); Eosinophils % 2.5 %; Hematocrit 35.7 % (35.3-44.9); Hemoglobin 11.5 g/dL (11.5-15.4); Immature Granulocytes % 0.6 % (0-4); Lymphocytes # 0.9 K/mcL (0.6-4.6); Lymphocytes % 10.8 %; Mean Corpuscular HGB Conc 32.2 g/dL (31.6-35.5); Mean Corpuscular Hemoglobin 32.5 pg (28.0-33.3); Mean Corpuscular Volume 100.8 fL (83.0-100.0); Monocytes # 0.4 K/mcL (0.0-1.3); Monocytes % 4.8 %; Platelet Count 118 K/mcL (140-400); Red Blood Count 3.54 M/mcL (3.82-4.97); Red Cell Distribution Width 15.7 % (11.5-14.5); Segmented Neutrophils % 81.2 %
[2017-05-30 07:03] LABS: BUN/Creatinine Ratio 7 (6-26); Blood Urea Nitrogen 6 mg/dL (7-20); Calcium 8.4 mg/dL (8.6-10.8); Carbon Dioxide 21 mEq/L (19-29); Chloride 114 mEq/L (98-109); Glucose 83 mg/dL (70-99); Osmolality,Calculated 295 (280-300); Potassium 3.8 mEq/L (3.5-4.5); Sodium 144 mEq/L (136-145); eGFR For African Americans > 60 (> 60); eGFR For Non-African Americans > 60 (> 60)
[2017-05-30] MEDS: Budesonide/Formoterol 160/4.5 MDI IH SCH (08:24)
[2017-05-30] MEDS: Tiotropium 18 MCG inhalation IH SCH (08:25)
[2017-05-30] MEDS: Topiramate 25 MG TABLET PO SCH (08:56)
[2017-05-30] MEDS: tiZANidine 4 MG TABLET PO SCH (08:56)
[2017-05-30] MEDS: Aspirin Enteric Coated 81 MG Tablet PO SCH (08:56)
[2017-05-30] MEDS: Folic Acid 1 MG TABLET PO SCH (08:56)
[2017-05-30] MEDS: BuPROPion XL (24 HR) 150 MG TABLET PO SCH (08:56)
[2017-05-30] MEDS: Gabapentin 400 MG CAPSULE PO SCH (08:57)
[2017-05-30] MEDS: Famotidine 20 MG TABLET PO SCH (08:57)
[2017-05-30] MEDS: Acetaminophen 325 MG TABLET PO PRN (09:04)
[2017-05-30 10:49] VITALS: BP 123/82
[2017-05-30] MEDS ORDERED: *HR* Morphine 2 MG/ML SYRINGE IVP PRN (13:24)
[2017-05-30] MEDS ORDERED: FLUARIX QUAD 2017-18 36MOS UP/PF 0.5 ML SYRINGE IM ONE (14:37)
[2017-05-30] MEDS ORDERED: Gabapentin 300 MG CAPSULE PO SCH (15:00)
--- NOTE | 2017-05-30 15:08 | Discharge Summary ---
Date of Encounter: 05/30/17 Time of Encounter: 15:06 - Discharge Diagnosis (1) Opiate withdrawal Priority: Primary Status: Acute (2) Spinal stenosis of lumbar region with radiculopathy Priority: Secondary Status: Chronic (3) Compression fracture of fourth lumbar vertebra Priority: Secondary Status: Acute Qualifiers: Encounter type: initial encounter Fracture type: closed Qualified Code(s) : S32.040A - Wedge compression fracture of fourth lumbar vertebra, initial encounter for closed fracture (4) ANUSHA (acute kidney injury) Priority: Secondary Status: Resolved (5) Hypokalemia Priority: Secondary Status: Acute (6) Nausea and vomiting Priority: Secondary Status: Acute Qualifiers: Vomiting type: unspecified Vomiting Intractability: unspecified Qualified Code(s): R11.2 - Nausea with vomiting, unspecified - Discharge Medications Prescriptions: Gabapentin [Neurontin] 600 mg PO TID #120 capsule Home Medications: Albuterol Sulfate [Albuterol Inhaler] 2 puff IH Q4-6H PRN 05/01/17 [History] Aspirin [Lo-Dose Aspirin EC] 81 mg PO DAILY 05/01/17 [History] Budesonide/Formoterol 160/4.5 [Symbicort 160/4.5] 2 puff IH BIDR 05/01/17 [ History] Bupropion HCl [Wellbutrin Xl] 300 mg PO DAILY 05/01/17 [History] Metoclopramide [Reglan] 10 mg PO QIDAC 05/01/17 [History] OLANZapine [Zyprexa] 5 mg PO DAILY 05/01/17 [History] Ranitidine HCl [Zantac] 300 mg PO BID 05/01/17 [History] Rosuvastatin [Crestor] 40 mg PO HS 05/01/17 [History] Sertraline [Zoloft] 100 mg PO DAILY 05/01/17 [History] Tiotropium [Spiriva] 18 mcg IH DAILY 05/01/17 [History] Topiramate [Topamax] 50 mg PO BID 05/01/17 [History] diazePAM [Valium] 10 mg PO TID PRN 05/01/17 [History] Cholecalciferol (D-3) [Vitamin D] 1,000 unit PO DAILY 05/27/17 [History] Docusate [Colace] 100 mg PO DAILY 05/27/17 [History] Folic Acid 1 mg PO DAILY 05/27/17 [History] Gabapentin [Neurontin] 600 mg PO TID #120 capsule 05/30/17 [Rx] Allergies/Adverse Reactions: 3 Allergy/AdvReac Type Severity Reaction Status Date / Time No Known Allergies Allergy Verified 04/30/17 20:44 Date of admission: 05/27/17 15:48 Primary care physician: Jessica Espinoza MD Consults: 05/28/17 13:39 Consult to Pain Management [CONS] Routine Consulting Provider: Pain Mgt [facility] Reason for Consult: Chronic opiate use, presented in withdrawal due to break in contract with PCP Call Completed: No Discharging clinician: Scarlet Mack Anticipated date of discharge: 05/30/17 - Patient Status Disposition: Home, Self-Care Condition: Good - Discharge Instructions Instructions: Dehydration (GEN) Follow Up With: Dustin Zuniga DO [Partnered Physician] - 06/05/17 7:50 am Jessica Espinoza MD [Primary Care Provider] - 06/05/17 11:00 am () - Diet and Activity Activity: resume usual activities as tolerated Diet: advance to your usual diet Hospital course: Ms. Webb is a 62 year old female admitted with the narcotic withdrawal with the symptoms of nausea vomiting and hypokalemia. Creatinine was slightly elevated due to poor by mouth intake. Electrolytes and renal abnormalities corrected with IV fluid and potassium supplementation. Pain management consulted. Recommended to discontinue her narcotic medication on a gradual basis as her family doctor has decided to discontinue all medication. She has been increased on Neurontin 600 [address] she has been tolerating well. She is planning to see pain management as outpatient and already has an appointment. Her previous MRI of the lumbar spine noted to have subacute inferior endplate fracture at L4 with mild -moderate height loss, L3-L4 and L4- L5 mild to moderate spinal stenosis with bilateral foraminal narrowing at L3-4 L4-5 level. She is noted to have proximal lower extremity weakness. She is referred to interventional pain for possible epidural steroid injection as well as physical therapy. She was noted to be ambulating now though with some difficulty but without any support. No bowel or bladder incontinence or saddle anesthesia. If conservative treatment with physical therapy and the interventional pain does not produce desired results and improve her functionality probably should be referred to neurosurgery none. - Time Spent with Patient Total time spent providing and/or coordinating discharge services: Greater than 30 minutes - Constitutional Vitals: Temp Pulse Resp BP Pulse Ox 98.0 F 61 16 123/82 94 05/30/17 10:42 05/30/17 10:42 05/30/17 10:42 05/30/17 10:42 05/30/17 10:42 General appearance: Present: A&O X 3, pleasant, no acute distress, answers questions appropriately - Head Head exam: Present: atraumatic, normocephalic - Eye Eye exam: Present: PERRL, conjuntiva pink, sclera anicteric Pupils: Present: PERRL - Neck Neck exam general surgery: Present: supple, trachea midline. Absent: lymphadenopathy - Respiratory Respiratory exam: Present: CTAB. Absent: accessory muscle use, rales, rhonchi, wheezes - Cardiovascular Cardiovascular exam: Present: RRR, +S1, +S2. Absent: diastolic murmur, gallop, rubs, systolic murmur - GI/Abdominal GI/Abdominal exam: Present: normal bowel sounds, soft, no peritoneal signs. Absent: distended, tenderness - Extremities Exam Extremities exam: Present: warm, radial pulses palpable and symmetrical. Absent : calf tenderness, cyanotic, pedal edema - Neurological Exam Neurological exam: Present: CN II-XII intact, oriented X3. Absent: pronater drift, facial droop, speech deficit Additional comments: Bilateral IP and quad weakness 4 over 5. Initial bilateral knee jerk. Patient is able to get out of bed by herself and ambulate without support though noted to have some difficulty but is still did not need any support. - Skin Skin exam: Present: dry, intact
== END 2017-05-30 15:55 | disposition home or self-care (01) | DRG 897 ==
LOC: 2ANU 11:38 → EMEROO 11:38 → 2ANU 14:55
PROVIDERS: ADMIT Hospitalist; ATTEND Internal Medicine

== ENCOUNTER 2017-06-07 07:40 | Observation (INO) ==
[2017-06-07] MEDS ORDERED: 0.9 % Sodium Chloride 1,000 ML IVC ONE (07:59)
[2017-06-07 08:07] LABS: Bilirubin,Urine Negative (Negative); Blood,Urine Small (Negative); Clarity,Urine Cloudy (Clear); Color,Urine Yellow (Yellow); Glucose,Urine (UA) Normal (Normal); Ketones,Urine Negative (Negative); Leukocyte Esterase,Urine Large (Negative); Nitrite,Urine Negative (Negative); Protein,Urine Trace mg/dL (Neg-Trace); Specific Gravity,Urine 1.011 (1.010-1.025); Urobilinogen,Urine Normal (Normal)
[2017-06-07 08:08] LABS: Bacteria,Urine Many per hpf (None-Few); Hyaline Casts,Urine None Seen per lpf (None-Few); Squamous Epithelial Cell,Urine Many per lpf (None-Few); WBC,Urine TNTC per hpf (0-3)
--- NOTE | 2017-06-07 08:12 | Emergency Department Note ---
Disposition Clinical Impression: Sepsis due to urinary tract infection, Pyelonephritis, Chronic low back pain Disposition: Admitted As Inpatient Condition: Fair Instructions: Urinary Tract Infection in Women (ED), Dysuria (ED) Referrals: Jessica Espinoza MD [Primary Care Provider] - Forms: ED Satisfaction Letter General Adult HPI - General Chief complaint: ED Extremity Problem,Nontraumatic Stated complaint: low back pain Time Seen by Provider: 06/07/17 08:01 Source: patient, EMS Limitations: no limitations Nursing Notes Reviewed: Yes Vital Signs Reviewed: Yes - History of Present Illness HPI Narrative: 62-year-old female presents today complaining of lower back pain. Patient states she has symptoms that radiate to her bilateral legs, neither being worse than the other. Patient states she has had pain for the past 2 weeks, she denies any falls denies any injury. She denies any urinary symptomology, she denies any coughing with this. Patient is a history of smoking, stopped smoking 2 years ago. Of concern is patient's elevated temperature mild tachycardia on presentation. Onset (ago): week(s) (3) Location: back, lower extremity Pain Scale: 9 Quality: burning, sharp Consistency: constant Worsens with: movement Associated symptoms: Reports: fever/chills Treatments Prior to Arrival: Aspirin - Related Data Home Medications Medication Instructions Recorded Confirmed Albuterol Sulfate [Albuterol 2 puff IH Q4-6H PRN 05/01/17 06/07/17 Inhaler] Aspirin [Lo-Dose Aspirin EC] 81 mg PO DAILY 05/01/17 06/07/17 Budesonide/Formoterol 160/4.5 2 puff IH BIDR 05/01/17 06/07/17 [Symbicort 160/4.5] Bupropion HCl [Wellbutrin Xl] 300 mg PO DAILY 05/01/17 06/07/17 Metoclopramide [Reglan] 10 mg PO QIDAC 05/01/17 06/07/17 OLANZapine [Zyprexa] 5 mg PO DAILY 05/01/17 06/07/17 Ranitidine HCl [Zantac] 300 mg PO BID 05/01/17 06/07/17 Rosuvastatin [Crestor] 40 mg PO HS 05/01/17 06/07/17 Sertraline [Zoloft] 100 mg PO DAILY 05/01/17 06/07/17 Tiotropium [Spiriva] 18 mcg IH DAILY 05/01/17 06/07/17 Topiramate [Topamax] 50 mg PO BID 05/01/17 06/07/17 diazePAM [Valium] 10 mg PO TID PRN 05/01/17 06/07/17 Cholecalciferol (D-3) [Vitamin D] 1,000 unit PO DAILY 05/27/17 06/07/17 Docusate [Colace] 100 mg PO DAILY 05/27/17 06/07/17 Folic Acid 1 mg PO DAILY 05/27/17 06/07/17 Gabapentin [Neurontin] 800 mg PO TID 06/07/17 06/07/17 Meloxicam [Mobic] 15 mg PO DAILY 06/07/17 06/07/17 Tizanidine HCl 2 mg PO BID 06/07/17 06/07/17 Allergies Allergy/AdvReac Type Severity Reaction Status Date / Time No Known Allergies Allergy Verified 04/30/17 20:44 All systems ED: reviewed and negative except as stated. Review of Systems: As Per HPI Past Medical History - Past Medical History Medical history: Reports: aortic aneurysm, COPD, hyperlipidemia, TIA Surgical history: Reports: herniorrhaphy, hysterectomy, orthopedic, other, other Psychiatric history: Reports: anxiety, depression, panic disorder, schizophrenia [employer] history: Reports: no [employer] history - Social History Smoking Status: Former smoker Smokeless Tobacco Status: No Alcohol use: Reports: none Drug use: Reports: none Physical Exam - General Limitations: no limitations General appearance: alert, in no apparent distress - Head Head exam: atraumatic, normocephalic - Eye Eye exam: Present: normal appearance - ENT ENT exam: normal exam, normal oropharynx - Neck Neck exam: Present: normal inspection, full ROM - Chest Chest inspection: Present: normal inspection - Cardiovascular Cardiovascular exam: Present: normal rhythm, tachycardia - Abdominal Exam Abdominal exam: Present: soft, Non-Tender - Extremities Exam Extremities exam: Present: normal inspection - Expanded Lower Extremity Exam Hip/Pelvis exam: Present: normal inspection Upper leg exam: Present: normal inspection Knee exam: Present: normal inspection Lower leg exam: Present: normal inspection Ankle exam: Present: normal inspection Foot/toe exam: Present: normal inspection Neurovascular/Tendon exam: Present: normal capillary refill - Back Exam Back exam: Present: tenderness - Skin Skin exam: Present: warm, dry Course - Reevaluation(s) Reevaluation #1: At this time, patient is resting comfortably. Due to her symptomology and obvious UTI and urosepsis, I have informed the patient she will be admitted to the hospital. Vital Signs Temperature 100.2 F H 06/07/17 07:42 Pulse Rate 111 06/07/17 07:42 Respiratory Rate 16 06/07/17 07:42 Blood Pressure 145/92 06/07/17 07:42 O2 Sat by Pulse Oximetry 93 06/07/17 07:42 Temperature 100.3 F H 06/07/17 09:30 Pulse Rate 94 06/07/17 11:07 Respiratory Rate 18 06/07/17 11:07 Blood Pressure 118/75 06/07/17 11:07 O2 Sat by Pulse Oximetry 96 06/07/17 11:07 Oxygen Delivery Oxygen Delivery Room Air,Nasal Cannula Medical Decision Making - MDM Narrative Medical decision making narrative: I examined this patient and my medical decision-making was reviewed with the Resident Physician. I agree with the documented findings, disposition and treatment plan as described except to the extent set forth below. Patient seen and evaluated by the PA Hunter Rutledge and myself, high-grade his evaluation and management plan, surprise, the patient stated. Patient resents with flank pain and burning with urination since with previous UTIs. She does meet Sirs criteria. Sepsis order set started. She is getting fluids IV antibiotics and lab work. Then we will reassess. She is in agreement with this plan. She is nontoxic in appearance. 0855 hrs.: Patient's white count elevated 12,000, lactate is normal. Started on Rocephin at this time waiting another lab work and reassessment with probable admission. Chest X-Ray 06/07/17 09:28 IMPRESSION: No active cardiopulmonary disease D/ / Tomas Murray MD / Tomas Murray MD Interpreting Provider: Tomas Murray MD - Lab Data Result diagrams: 06/07/17 08:27 06/07/17 08:27 Lab Results 06/07/17 06/07/17 06/07/17 Range/Units 07:56 08:27 08:27 WBC 12.1 H (4.3-11.1) K/mcL RBC 3.62 L (3.82-4.97) M/mcL Hgb 11.9 (11.5-15.4) g/dL Hct 36.3 (35.3-44.9) % MCV 100.3 H (83.0-100.0) fL MCH 32.9 (28.0-33.3) pg MCHC 32.8 (31.6-35.5) g/dL RDW 14.9 H (11.5-14.5) % Plt Count 124 L (140-400) K/mcL MPV 10.9 (9.4-12.4) fL Immature Gran % 0.7 (0-4) % Seg Neutrophils % 86.2 % Lymphocytes % 5.9 % Monocytes % 6.8 % Eosinophils % 0.2 % Basophils % 0.2 % Neutrophils # 10.4 H (1.6-8.9) K/mcL Lymphocytes # 0.7 (0.6-4.6) K/mcL Monocytes # 0.8 (0.0-1.3) K/mcL Eosinophils # 0.0 (0.0-0.6) K/mcL Basophils # 0.0 (0.0-0.2) K/mcL Immature Plt Fraction 2.5 (1.1-6.1) % Sodium 139 (136-145) mEq/L Potassium 3.3 L (3.5-4.5) mEq/L Chloride 106 (98-109) mEq/L Carbon Dioxide 22 (19-29) mEq/L BUN 9 (7-20) mg/dL Creatinine 1.02 (0.57-1.11) mg/dL Est GFR ( Amer) > 60 (> 60) Est GFR (Non-Af Amer) 55 L (> 60) BUN/Creatinine Ratio 9 (6-26) Glucose 91 (70-99) mg/dL Calculated Osmolality 286 (280-300) Lactic Acid (0.5-2.2) mmol/L Calcium 8.9 (8.6-10.8) mg/dL Phosphorus 2.5 (2.3-4.7) mg/dL Magnesium 1.6 (1.6-2.6) mg/dL Total Bilirubin 0.6 (0.2-1.2) mg/dL Direct Bilirubin 0.3 (0.0-0.5) mg/dL Indirect Bilirubin 0.3 (0.0-1.2) mg/dL AST 12 (5-34) Units/L ALT 12 (0-55) Units/L Alkaline Phosphatase 135 H (38-126) Units/L Troponin I (0-0.03) ng/mL Serum Total Protein 6.5 (6.0-8.3) g/dL Albumin 2.9 L (3.5-5.0) g/dL Globulin 3.6 H (2.4-3.5) g/dL Albumin/Globulin Ratio 0.8 L (1.1-2.2) Urine Color Yellow (Yellow) Urine Clarity Cloudy A (Clear) Urine pH 8.0 (5.0-8.0) pH Units Ur Specific [place] 1.011 (1.010-1.025) Urine Protein Trace (Neg-Trace) mg/dL Urine Glucose (UA) Normal (Normal) mg/dL Urine Ketones Negative (Negative) mg/dL Urine Blood Small H (Negative) Urine Nitrite Negative (Negative) Urine Bilirubin Negative (Negative) Urine Urobilinogen Normal (Normal) mg/dL Ur Leukocyte Esterase Large H (Negative) Urine Microscopic RBC 5-15 H (0-3) per hpf Urine Microscopic WBC TNTC H (0-3) per hpf Ur Squamous Epith Cells Many H (None-Few) per lpf Urine Bacteria Many H (None-Few) per hpf Hyaline Casts None Seen (None-Few) per lpf Ur Culture Indicated? YES A (NO) 06/07/17 06/07/17 06/07/17 Range/Units 08:27 08:27 10:42 WBC (4.3-11.1) K/mcL RBC (3.82-4.97) M/mcL Hgb (11.5-15.4) g/dL Hct (35.3-44.9) % MCV (83.0-100.0) fL MCH (28.0-33.3) pg MCHC (31.6-35.5) g/dL RDW (11.5-14.5) % Plt Count (140-400) K/mcL MPV (9.4-12.4) fL Immature Gran % (0-4) % Seg Neutrophils % % Lymphocytes % % Monocytes % % Eosinophils % % Basophils % % Neutrophils # (1.6-8.9) K/mcL Lymphocytes # (0.6-4.6) K/mcL Monocytes # (0.0-1.3) K/mcL Eosinophils # (0.0-0.6) K/mcL Basophils # (0.0-0.2) K/mcL Immature Plt Fraction (1.1-6.1) % Sodium (136-145) mEq/L Potassium (3.5-4.5) mEq/L Chloride (98-109) mEq/L Carbon Dioxide (19-29) mEq/L BUN (7-20) mg/dL Creatinine (0.57-1.11) mg/dL Est GFR ( Amer) (> 60) Est GFR (Non-Af Amer) (> 60) BUN/Creatinine Ratio (6-26) Glucose (70-99) mg/dL Calculated Osmolality (280-300) Lactic Acid 1.0 0.5 (0.5-2.2) mmol/L Calcium (8.6-10.8) mg/dL Phosphorus (2.3-4.7) mg/dL Magnesium (1.6-2.6) mg/dL Total Bilirubin (0.2-1.2) mg/dL Direct Bilirubin (0.0-0.5) mg/dL Indirect Bilirubin (0.0-1.2) mg/dL AST (5-34) Units/L ALT (0-55) Units/L Alkaline Phosphatase (38-126) Units/L Troponin I 0.01 (0-0.03) ng/mL Serum Total Protein (6.0-8.3) g/dL Albumin (3.5-5.0) g/dL Globulin (2.4-3.5) g/dL Albumin/Globulin Ratio (1.1-2.2) Urine Color (Yellow) Urine Clarity (Clear) Urine pH (5.0-8.0) pH Units Ur Specific [place] (1.010-1.025) Urine Protein (Neg-Trace) mg/dL Urine Glucose (UA) (Normal) mg/dL Urine Ketones (Negative) mg/dL Urine Blood (Negative) Urine Nitrite (Negative) Urine Bilirubin (Negative) Urine Urobilinogen (Normal) mg/dL Ur Leukocyte Esterase (Negative) Urine Microscopic RBC (0-3) per hpf Urine Microscopic WBC (0-3) per hpf Ur Squamous Epith Cells (None-Few) per lpf Urine Bacteria (None-Few) per hpf Hyaline Casts (None-Few) per lpf Ur Culture Indicated? (NO)
[2017-06-07] MEDS: 0.9 % Sodium Chloride 1,000 ML IVC ONE ×2 (08:25→09:29)
[2017-06-07 08:37] LABS: Basophils % 0.2 %; Eosinophils % 0.2 %; Hematocrit 36.3 % (35.3-44.9); Hemoglobin 11.9 g/dL (11.5-15.4); Immature Granulocytes % 0.7 % (0-4); Immature Platelets 2.5 % (1.1-6.1); Lymphocytes # 0.7 K/mcL (0.6-4.6); Lymphocytes % 5.9 %; Mean Corpuscular HGB Conc 32.8 g/dL (31.6-35.5); Mean Corpuscular Hemoglobin 32.9 pg (28.0-33.3); Mean Corpuscular Volume 100.3 fL (83.0-100.0); Mean Platelet Volume 10.9 fL (9.4-12.4); Monocytes # 0.8 K/mcL (0.0-1.3); Monocytes % 6.8 %; Neutrophils # 10.4 K/mcL (1.6-8.9); Platelet Count 124 K/mcL (140-400); Red Blood Count 3.62 M/mcL (3.82-4.97); Red Cell Distribution Width 14.9 % (11.5-14.5); Segmented Neutrophils % 86.2 %
[2017-06-07] MEDS ORDERED: cefTRIAXone 1,000 MG in Water for inj. (sterile) 10 ML IVP ONE (08:47)
[2017-06-07 08:51] LABS: Alanine Aminotransferase 12 Units/L (0-55); Albumin 2.9 g/dL (3.5-5.0); Albumin/Globulin Ratio 0.8 (1.1-2.2); Alkaline Phosphatase 135 Units/L (38-126); Aspartate Amino Transferase 12 Units/L (5-34); BUN/Creatinine Ratio 9 (6-26); Bilirubin,Direct 0.3 mg/dL (0.0-0.5); Bilirubin,Indirect 0.3 mg/dL (0.0-1.2); Bilirubin,Total 0.6 mg/dL (0.2-1.2); Blood Urea Nitrogen 9 mg/dL (7-20); Calcium 8.9 mg/dL (8.6-10.8); Carbon Dioxide 22 mEq/L (19-29); Chloride 106 mEq/L (98-109); Globulin 3.6 g/dL (2.4-3.5); Glucose 91 mg/dL (70-99); Magnesium 1.6 mg/dL (1.6-2.6); Osmolality,Calculated 286 (280-300); Phosphorous 2.5 mg/dL (2.3-4.7); Potassium 3.3 mEq/L (3.5-4.5); Sodium 139 mEq/L (136-145); Total Protein 6.5 g/dL (6.0-8.3); eGFR For African Americans > 60 (> 60); eGFR For Non-African Americans 55 (> 60)
[2017-06-07] MEDS ORDERED: *HR* HYDROmorphone (PF) 1 MG/ML SYRINGE IVP ONE (09:45)
[2017-06-07] MEDS ORDERED: diazePAM 10 MG TABLET PO PRN (12:09)
--- NOTE | 2017-06-07 13:46 | Internal Med History&Physical ---
Date of Encounter: 06/07/17 Time of Encounter: 13:30 Assessment and Plan (1) Sepsis Current visit: Yes Status: Suspected Pt with hx of UTIs due to E. coli. Currently has tachycardia, leukocytosis and fever. Lactate normal x 2. UA positive. Will admit. Fluids. IV Ceftriaxone. Currently hemodynamically stable. Symptomatic treatment for fever and chills. Qualifiers: Sepsis type: Escherichia coli Qualified Code(s): A41.51 - Sepsis due to Escherichia coli [E. coli] (2) UTI (urinary tract infection) Current visit: Yes Status: Acute Has hx of previous UTIs. Prior E. coli sensitive to Rocephin which has been started here. Qualifiers: Urinary tract infection type: acute cystitis Hematuria presence: with hematuria Qualified Code(s): N30.01 - Acute cystitis with hematuria (3) Hypokalemia Current visit: No Status: Acute Replace. (4) COPD (chronic obstructive pulmonary disease) Current visit: No Status: Chronic Aerosols and supportive care. Not in acute exacerbation. Qualifiers: COPD type: unspecified COPD Qualified Code(s): J44.9 - Chronic obstructive pulmonary disease, unspecified (5) HTN (hypertension) Current visit: No Status: Chronic Chronic issue. Continue home meds. Qualifiers: Hypertension type: essential hypertension Qualified Code(s): I10 - Essential (primary) hypertension (6) Hyperlipidemia Current visit: No Status: Chronic Chronic issue. Continue meds. Qualifiers: Hyperlipidemia type: mixed hyperlipidemia Qualified Code(s): E78.2 - Mixed hyperlipidemia (7) Spinal stenosis of lumbar region with radiculopathy Current visit: No Status: Chronic Supportive care. Internal Medicine - H&P: HPI Chief complaint: Abd pain Admitted From: Emergency Dept Plans for Post Hospital Care: Home History of present illness: Ms. Webb is a 62 year old female presented to ED with complaints of lower abdominal pain. She has been experiencing for last few days. No fever documented at home. Occasional chills. Has hx of UTI in past. No diarrhea or constipation. In ED she was complaining of back pain but no urinary symptoms. She was noted to be tachycardic and febrile in ED. Her UA was positive and she is being admitted for sepsis related to UTI. At the present time she is lying in bed with rigors. She feels nauseous and feverish. She is having some discomfort in her lower abdomen. She is high risk due to acute sepsis and need for IV abx and potential for clinical decline. Past Med Surg Social Fam HX - Past Medical History Source: patient, old records reviewed Medical history: aortic aneurysm, COPD, hyperlipidemia, TIA Psychiatric history: anxiety, depression, panic disorder, schizophrenia - Past Surgical History Surgical History: herniorrhaphy, hysterectomy, orthopedic, other, other, vascular surgery - Social History Smoking Status: Former smoker Smokeless Tobacco Status: No Alcohol use: none Drug use: none - Family History Mother Hx Family Respiratory Disorders: Yes (Lung Cancer) Hx Family Cancer: Yes (Colon cancer) Hx Family GI Disorders: Yes Father Hx Family Cancer: Yes (Lung) Internal Medicine - H&P: Meds RX: Albuterol Sulfate [Albuterol Inhaler] 2 puff IH Q4-6H PRN 05/01/17 [History] RX: Aspirin [Lo-Dose Aspirin EC] 81 mg PO DAILY 05/01/17 [History] RX: Budesonide/Formoterol 160/4.5 [Symbicort 160/4.5] 2 puff IH BIDR 05/01/17 [ History] RX: Bupropion HCl [Wellbutrin Xl] 300 mg PO DAILY 05/01/17 [History] RX: Metoclopramide [Reglan] 10 mg PO QIDAC 05/01/17 [History] RX: OLANZapine [Zyprexa] 5 mg PO DAILY 05/01/17 [History] RX: Ranitidine HCl [Zantac] 300 mg PO BID 05/01/17 [History] RX: Rosuvastatin [Crestor] 40 mg PO HS 05/01/17 [History] RX: Sertraline [Zoloft] 100 mg PO DAILY 05/01/17 [History] RX: Tiotropium [Spiriva] 18 mcg IH DAILY 05/01/17 [History] RX: Topiramate [Topamax] 50 mg PO BID 05/01/17 [History] RX: diazePAM [Valium] 10 mg PO TID PRN 05/01/17 [History] RX: Cholecalciferol (D-3) [Vitamin D] 1,000 unit PO DAILY 05/27/17 [History] RX: Docusate [Colace] 100 mg PO DAILY 05/27/17 [History] RX: Folic Acid 1 mg PO DAILY 05/27/17 [History] Gabapentin [Neurontin] 800 mg PO TID 06/07/17 [History] Meloxicam [Mobic] 15 mg PO DAILY 06/07/17 [History] RX: Tizanidine HCl 2 mg PO BID 06/07/17 [History] 3 Allergy/AdvReac Type Severity Reaction Status Date / Time No Known Allergies Allergy Verified 04/30/17 20:44 All Systems PM: A 10-system review of systems was performed and is negative for pertinent findings except as documented above in the HPI. - Constitutional Constitutional: anorexia, chills, fatigue, fever(s), malaise - EENT Eyes: no blurry vision, no dry eye, no pain Ears: no decreased hearing Nose, mouth and throat: dry mouth, no mouth pain, no sinus pain - Cardiovascular Cardiovascular ROS IM: no chest pain, no dyspnea, no dyspnea on exertion, no orthopnea, no paroxysmal nocturnal dyspnea - Respiratory Respiratory: no cough, no dyspnea on exertion, no chest congestion - Gastrointestinal Gastrointestinal: abdominal pain, no constipation, no diarrhea, no melena - Genitourinary Genitourinary: no dysuria, no urinary frequency, no urinary urgency - Musculoskeletal Musculoskeletal ROS IM: arthralgias, back pain, no myalgias, no numbness - Integumentary Integumentary IM: no erythema, no rash - Neurological Neurological ROS: no confusion, no dizziness, no tremor(s) - Endocrine Endocrine IM: no cold intolerance, no heat intolerance - Hematologic/Lymphatic Hematologic/Lymphatic: no easy bleeding - Allergic/Immunologic Allergic/Immunologic: no tongue swelling, no itchy eyes - Constitutional Vitals: Temp Pulse Resp BP Pulse Ox 100.7 F H 104 20 162/81 93 06/07/17 13:09 06/07/17 13:09 06/07/17 13:09 06/07/17 13:09 06/07/17 13:09 General appearance: Present: A&O X 3, severe distress Exam: Acutely rigoring during exam - Head Head exam: Present: atraumatic, normocephalic - Eye Eye exam: Present: EOMI, PERRL, conjuntiva pink - ENT ENT exam: Present: mucous membranes dry - Neck Neck exam general surgery: Absent: lymphadenopathy, thyromegaly - Respiratory Respiratory exam: Present: decreased breath sounds. Absent: rales, rhonchi, wheezes - Cardiovascular Cardiovascular exam: Present: tachycardia. Absent: irregular rhythm - GI/Abdominal GI/Abdominal exam: Present: diminished bowel sounds, soft, tenderness Additional comments: Suprapubic tenderness - Extremities Exam Extremities exam: Present: full ROM, warm. Absent: tenderness - Neurological Exam Neurological exam: Present: alert, oriented X3 - Skin Skin exam: Present: dry, warm. Absent: rash Internal Med - H&P Results - Labs CBC & Chem 7: 06/07/17 08:27 06/07/17 08:27
[2017-06-07] MEDS: 0.9 % Sodium Chloride 1,000 ML IVC SCH (14:03)
[2017-06-07] MEDS: Gabapentin 400 MG CAPSULE PO SCH ×2 (14:03→21:33)
[2017-06-07] MEDS: Acetaminophen 325 MG TABLET PO PRN (14:03)
[2017-06-07] MEDS ORDERED: Ibuprofen 400 MG TABLET PO ONE (14:55)
[2017-06-07] MEDS ORDERED: Ketorolac 30 MG/ML VIAL IVP ONE (16:41)
[2017-06-07] MEDS: Budesonide/Formoterol 160/4.5 MDI IH SCH (19:40)
[2017-06-07] MEDS ORDERED: Famotidine 20 MG TABLET PO SCH (21:00)
[2017-06-07] MEDS: Topiramate 25 MG TABLET PO SCH (21:32)
[2017-06-07] MEDS: Famotidine 20 MG TABLET PO SCH (21:32)
[2017-06-07] MEDS: tiZANidine 4 MG TABLET PO SCH (21:32)
[2017-06-08] MEDS: Acetaminophen 325 MG TABLET PO PRN ×2 (02:59→08:51)
[2017-06-08] MEDS: 0.9 % Sodium Chloride 1,000 ML IVC SCH (04:25)
[2017-06-08 06:05] LABS: Basophils % 0.1 %; Eosinophils % 0.4 %
[2017-06-08 06:07] LABS: Hematocrit 30.9 % (35.3-44.9); Hemoglobin 9.9 g/dL (11.5-15.4); Immature Platelets 3.7 % (1.1-6.1); Lymphocytes # 0.7 K/mcL (0.6-4.6); Lymphocytes % 5.9 %; Mean Corpuscular Hemoglobin 32.9 pg (28.0-33.3); Mean Corpuscular Volume 102.7 fL (83.0-100.0); Mean Platelet Volume 10.9 fL (9.4-12.4); Monocytes # 0.7 K/mcL (0.0-1.3); Monocytes % 5.9 %; Neutrophils # 9.8 K/mcL (1.6-8.9); Nucleated Red Blood Cells 0.2 /100 WBC (0); Red Blood Count 3.01 M/mcL (3.82-4.97); Segmented Neutrophils % 86.7 %
[2017-06-08 06:08] LABS: Eosinophils # 0.1 K/mcL (0.0-0.6)
[2017-06-08 06:09] LABS: Platelet Count 97 K/mcL (140-400)
[2017-06-08 06:20] LABS: Alanine Aminotransferase 8 Units/L (0-55); Albumin/Globulin Ratio 0.8 (1.1-2.2); Alkaline Phosphatase 104 Units/L (38-126); Aspartate Amino Transferase 9 Units/L (5-34); BUN/Creatinine Ratio 14 (6-26); Bilirubin,Direct 0.2 mg/dL (0.0-0.5); Bilirubin,Indirect 0.1 mg/dL (0.0-1.2); Bilirubin,Total 0.3 mg/dL (0.2-1.2); Blood Urea Nitrogen 11 mg/dL (7-20); Calcium 8.3 mg/dL (8.6-10.8); Carbon Dioxide 20 mEq/L (19-29); Chloride 114 mEq/L (98-109); Glucose 86 mg/dL (70-99); Osmolality,Calculated 289 (280-300); Potassium 3.9 mEq/L (3.5-4.5); Sodium 140 mEq/L (136-145); Total Protein 5.3 g/dL (6.0-8.3); eGFR For African Americans > 60 (> 60); eGFR For Non-African Americans > 60 (> 60)
[2017-06-08 06:21] LABS: Albumin 2.3 g/dL (3.5-5.0)
[2017-06-08] MEDS: Aspirin Enteric Coated 81 MG Tablet PO SCH (08:02)
[2017-06-08] MEDS: Folic Acid 1 MG TABLET PO SCH (08:03)
[2017-06-08] MEDS: Famotidine 20 MG TABLET PO SCH ×2 (08:06→20:57)
[2017-06-08] MEDS: Topiramate 25 MG TABLET PO SCH ×2 (08:08→20:57)
[2017-06-08] MEDS: OLANZapine 5 MG TAB.RAPDIS PO SCH (08:08)
[2017-06-08] MEDS: tiZANidine 4 MG TABLET PO SCH ×2 (08:09→20:56)
[2017-06-08] MEDS: Gabapentin 400 MG CAPSULE PO SCH ×3 (08:18→20:57)
[2017-06-08] MEDS: BuPROPion XL (24 HR) 150 MG TABLET PO SCH (08:20)
[2017-06-08] MEDS: Piperacillin/Tazobactam 3.375 GM in D5% in Water 50 ML IVPB SCH ×3 (08:43→23:30)
[2017-06-08] MEDS ORDERED: cefTRIAXone 1,000 MG in Water for inj. (sterile) 10 ML IVP SCH (09:00)
[2017-06-08] MEDS: Budesonide/Formoterol 160/4.5 MDI IH SCH ×2 (10:40→20:34)
[2017-06-08] MEDS: Tiotropium 18 MCG inhalation IH SCH (10:41)
--- NOTE | 2017-06-08 13:34 | Internal Med Progress Note ---
Date of Encounter: 06/08/17 Time of Encounter: 12:15 - Assessment and plan (1) Sepsis due to urinary tract infection Current Visit: Yes Status: Acute Assessment and plan: Given persistent fevers despite being on abx, will broaden abx coverage continue broad spectrum IV abx f/u urine culture IV fluids tylenol prn fever (2) COPD (chronic obstructive pulmonary disease) Current Visit: No Status: Chronic Assessment and plan: not in acute exacerbation continue home medications Qualifiers: COPD type: unspecified COPD Qualified Code(s): J44.9 - Chronic obstructive pulmonary disease, unspecified (3) Spinal stenosis of lumbar region with radiculopathy Current Visit: No Status: Chronic Assessment and plan: continue supportive care PT evaluation requested (4) DVT prophylaxis Current Visit: No Status: Acute Assessment and plan: Heparin SQ (5) Anxiety Current Visit: Yes Status: Chronic Assessment and plan: continue home medications - Subjective Interval history: Patient seen and examined at bedside. Resting in bed,eating lunch. Reports of feeling better compared to previous day. noted to remain febrile overnight despite abx therapy. given persistent fevers, will broaden abx coverage. Pt reports of chronic lower back pain with pain radiating to bilateral lower extremities. No neurological deficits noted. - Constitutional Vitals: Temp Pulse Resp BP Pulse Ox 99.0 F 87 24 122/72 94 06/08/17 10:53 06/08/17 10:53 06/08/17 10:53 06/08/17 10:53 06/08/17 10:53 General appearance: Present: A&O X 3, no acute distress, answers questions appropriately - Head Head exam: Present: atraumatic, normocephalic - Eye Eye exam: Present: conjuntiva pink, sclera anicteric - Respiratory Respiratory exam: Present: CTAB. Absent: respiratory distress, wheezes - Cardiovascular Cardiovascular exam: Present: RRR, +S1, +S2. Absent: diastolic murmur, gallop, rubs, systolic murmur - GI/Abdominal GI/Abdominal exam: Present: normal bowel sounds, soft, no peritoneal signs. Absent: distended, tenderness - Extremities Exam Extremities exam: Present: warm, radial pulses palpable and symmetrical. Absent : calf tenderness - Neurological Exam Neurological exam: Present: alert, oriented X3 - Psychiatric Psychiatric exam: Present: normal affect, normal mood Internal Medicine: Result - Labs CBC & Chem 7: 06/08/17 05:22 06/08/17 05:22 Labs: Short CBC 06/08/17 Range/Units 05:22 WBC 11.3 H (4.3-11.1) K/mcL Hgb 9.9 L D (11.5-15.4) g/dL Hct 30.9 L (35.3-44.9) % Plt Count 97 L (140-400) K/mcL Neutrophils # 9.8 H (1.6-8.9) K/mcL BMP 06/08/17 05:22 Sodium 140 Potassium 3.9 Chloride 114 H Carbon Dioxide 20 BUN 11 Creatinine 0.77 Glucose 86 Calcium 8.3 L Liver Function 06/08/17 Range/Units 05:22 Total Bilirubin 0.3 (0.2-1.2) mg/dL Direct Bilirubin 0.2 (0.0-0.5) mg/dL AST 9 (5-34) Units/L ALT 8 (0-55) Units/L Alkaline Phosphatase 104 (38-126) Units/L Albumin 2.3 L D (3.5-5.0) g/dL Consult Discharge Plan - Plan Referrals: Jessica Espinoza MD [Primary Care Provider] -
[2017-06-08] MEDS: *HR* HYDROcodone/Acet 5/325 mg TABLET PO PRN ×2 (15:01→23:30)
--- NOTE | 2017-06-08 17:48 | Electrocardiograph Report ---
[place] [id number] Test Date: 2017-06-07 Pat Name: Rachel Webb Department: 104 Room: 3B54 Gender: F Last Scourer: : 1955 Requested By: Yasemin Glynn Order Number: [id number] Reading MD: Olaf Lugo MD Measurements Intervals [place] Rate: 106 P: 51 FL: 137 QRS: 15 QRSD: 89 T: 54 QT: 312 QTc: 374 Interpretive Statements SINUS TACHYCARDIA Poor R wave progression Electronically Signed On 06-08-2017 17:46:30 EST by Olaf Lugo MD
[2017-06-08] MEDS: *HR* Heparin 5,000 UNIT/ML VIAL SQ SCH (20:59)
[2017-06-09] MEDS: 0.9 % Sodium Chloride 1,000 ML IVC SCH (03:22)
[2017-06-09 04:37] LABS: Basophils % 0.1 %; Eosinophils % 1.4 %; Hematocrit 29.8 % (35.3-44.9); Hemoglobin 9.4 g/dL (11.5-15.4); Immature Granulocytes % 0.4 % (0-4); Mean Corpuscular HGB Conc 31.5 g/dL (31.6-35.5); Red Cell Distribution Width 14.8 % (11.5-14.5)
[2017-06-09 04:39] LABS: Eosinophils # 0.1 K/mcL (0.0-0.6); Immature Platelets 4.2 % (1.1-6.1); Lymphocytes # 0.9 K/mcL (0.6-4.6); Lymphocytes % 11.1 %; Mean Corpuscular Hemoglobin 32.8 pg (28.0-33.3); Mean Corpuscular Volume 103.8 fL (83.0-100.0); Monocytes # 0.5 K/mcL (0.0-1.3); Monocytes % 5.5 %; Neutrophils # 6.6 K/mcL (1.6-8.9); Red Blood Count 2.87 M/mcL (3.82-4.97); Segmented Neutrophils % 81.5 %
[2017-06-09 04:44] LABS: Platelet Count 92 K/mcL (140-400)
[2017-06-09 04:53] LABS: BUN/Creatinine Ratio 10 (6-26); Blood Urea Nitrogen 9 mg/dL (7-20); Calcium 8.5 mg/dL (8.6-10.8); Carbon Dioxide 23 mEq/L (19-29); Chloride 114 mEq/L (98-109); Glucose 96 mg/dL (70-99); Magnesium 1.7 mg/dL (1.6-2.6); Osmolality,Calculated 293 (280-300); Sodium 142 mEq/L (136-145); eGFR For African Americans > 60 (> 60); eGFR For Non-African Americans > 60 (> 60)
[2017-06-09] MEDS: *HR* Heparin 5,000 UNIT/ML VIAL SQ SCH (05:02)
[2017-06-09] MEDS: Gabapentin 400 MG CAPSULE PO SCH ×2 (07:59→15:50)
[2017-06-09] MEDS: BuPROPion XL (24 HR) 150 MG TABLET PO SCH (07:59)
[2017-06-09] MEDS: Famotidine 20 MG TABLET PO SCH (07:59)
[2017-06-09] MEDS: Folic Acid 1 MG TABLET PO SCH (08:00)
[2017-06-09] MEDS: tiZANidine 4 MG TABLET PO SCH (08:00)
[2017-06-09] MEDS: OLANZapine 5 MG TAB.RAPDIS PO SCH (08:01)
[2017-06-09] MEDS: *HR* HYDROcodone/Acet 5/325 mg TABLET PO PRN ×2 (08:01→16:04)
[2017-06-09] MEDS: Topiramate 25 MG TABLET PO SCH (08:01)
[2017-06-09] MEDS: Aspirin Enteric Coated 81 MG Tablet PO SCH (08:01)
[2017-06-09] MEDS: Piperacillin/Tazobactam 3.375 GM in D5% in Water 50 ML IVPB SCH (08:07)
--- NOTE | 2017-06-09 08:59 | Discharge Summary ---
Date of Encounter: 06/09/17 Time of Encounter: 08:55 - Discharge Diagnosis (1) Sepsis due to urinary tract infection Priority: Primary Status: Resolved (2) COPD (chronic obstructive pulmonary disease) Priority: Secondary Status: Chronic Qualifiers: COPD type: unspecified COPD Qualified Code(s): J44.9 - Chronic obstructive pulmonary disease, unspecified (3) Spinal stenosis of lumbar region with radiculopathy Priority: Secondary Status: Chronic (4) DVT prophylaxis Priority: Secondary Status: Acute (5) Anxiety Priority: Secondary Status: Chronic - Discharge Medications Prescriptions: levoFLOXacin [Levaquin] 750 mg PO DAILY #7 tablet Home Medications: Albuterol Sulfate [Albuterol Inhaler] 2 puff IH Q4-6H PRN 05/01/17 [History] Aspirin [Lo-Dose Aspirin EC] 81 mg PO DAILY 05/01/17 [History] Budesonide/Formoterol 160/4.5 [Symbicort 160/4.5] 2 puff IH BIDR 05/01/17 [ History] Bupropion HCl [Wellbutrin Xl] 300 mg PO DAILY 05/01/17 [History] Metoclopramide [Reglan] 10 mg PO QIDAC 05/01/17 [History] OLANZapine [Zyprexa] 5 mg PO DAILY 05/01/17 [History] Ranitidine HCl [Zantac] 300 mg PO BID 05/01/17 [History] Rosuvastatin [Crestor] 40 mg PO HS 05/01/17 [History] Sertraline [Zoloft] 100 mg PO DAILY 05/01/17 [History] Tiotropium [Spiriva] 18 mcg IH DAILY 05/01/17 [History] Topiramate [Topamax] 50 mg PO BID 05/01/17 [History] diazePAM [Valium] 10 mg PO TID PRN 05/01/17 [History] Cholecalciferol (D-3) [Vitamin D] 1,000 unit PO DAILY 05/27/17 [History] Docusate [Colace] 100 mg PO DAILY 05/27/17 [History] Folic Acid 1 mg PO DAILY 05/27/17 [History] Gabapentin [Neurontin] 800 mg PO TID 06/07/17 [History] Meloxicam [Mobic] 15 mg PO DAILY 06/07/17 [History] Tizanidine HCl 2 mg PO BID 06/07/17 [History] levoFLOXacin [Levaquin] 750 mg PO DAILY #7 tablet 06/09/17 [Rx] Allergies/Adverse Reactions: 3 Allergy/AdvReac Type Severity Reaction Status Date / Time No Known Allergies Allergy Verified 04/30/17 20:44 Procedures/tests Complete & Pending: Procedures Performed prior 72 hours Category Date Time Status ECG 12 lead ECG [ECG] Routine Y 06/07/17 07:54 Completed Date of admission: 06/07/17 12:11 Primary care physician: Jessica Espinoza MD Consults: 06/08/17 13:40 Consult to Physical Therapy [CONS] Routine Comment: Evaluate, develop and implement POC Reason for Consult: evaluation for placement/home health Discharging clinician: Yasemin Glynn Anticipated date of discharge: 06/09/17 - Patient Status Disposition: Home Health Service Condition: Good Functional capacity at discharge: uses cane/walker Overall status at discharge: patient is back to baseline - Discharge Instructions Follow Up With: Jessica Espinoza MD [Primary Care Provider] - Additional Instructions: Please follow up with your primary care physician within five days after your discharge from the hospital Please continue oral antibiotics as prescribed. Please resume all your other home medications as prescribed by your primary care physician. - Diet and Activity Activity: as per physical therapy Diet: low fat, low cholesterol, low salt diet Hospital course: Ms. Webb is a 62 year old female with PMH of HTN, HLD, COPD who was admitted for sepsis secondary to UTI. she was started on broad spectrum abx to which she responded appropriately. She reports of having history of spinal stenosis and has been wanting home health for physical therapy. She does not want to go to [facility] but wishes to have home health services. At this time, she is hemodynamically stable and will be discharged to home. 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 Pt will be discharged to home with oral abx once home health service has been set up. Pt demonstrates understanding of her diagnosis and agree with the discharge care and plan. - Time Spent with Patient Total time spent providing and/or coordinating discharge services: Less than 30 minutes - Constitutional Vitals: Temp Pulse Resp BP Pulse Ox 98.2 F 87 20 152/82 94 06/09/17 07:05 06/09/17 07:05 06/09/17 07:05 06/09/17 07:05 06/09/17 07:05 General appearance: Present: A&O X 3, no acute distress, answers questions appropriately - Head Head exam: Present: atraumatic, normocephalic - Eye Eye exam: Present: conjuntiva pink, sclera anicteric - Respiratory Respiratory exam: Present: CTAB. Absent: accessory muscle use, rales, rhonchi, wheezes - Cardiovascular Cardiovascular exam: Present: RRR, +S1, +S2. Absent: diastolic murmur, gallop, rubs, systolic murmur - GI/Abdominal GI/Abdominal exam: Present: normal bowel sounds, soft, no peritoneal signs. Absent: distended, tenderness - Extremities Exam Extremities exam: Present: warm, radial pulses palpable and symmetrical. Absent : calf tenderness, cyanotic, pedal edema - Neurological Exam Neurological exam: Present: alert, oriented X3 - Psychiatric Psychiatric exam: Present: normal affect, normal mood
--- NOTE | 2017-06-09 09:07 | Physician Discharge Referral ---
Home Health/Hosp Referral Info Transfer to: Home Health Provider in Charge Post Discharge: PCP - Diagnosis (1) Sepsis due to urinary tract infection Priority: Primary Status: Resolved (2) COPD (chronic obstructive pulmonary disease) Priority: Secondary Status: Chronic (3) Spinal stenosis of lumbar region with radiculopathy Priority: Secondary Status: Chronic (4) DVT prophylaxis Priority: Secondary Status: Acute (5) Anxiety Priority: Secondary Status: Chronic - Respiratory Orders Smoking Cessation: Smoking cessation has been advised. For more information, call the [place] Tobacco Quit Line at 4-380-AVEB-NOW. - Services Needed Following services are medically necessary services: Nursing, Home Health Aide, Physical Therapy, Occupational Therapy - Transfer Medications Prescriptions: levoFLOXacin [Levaquin] 750 mg PO DAILY #7 tablet Home Medications: Albuterol Sulfate [Albuterol Inhaler] 2 puff IH Q4-6H PRN 05/01/17 [History] Aspirin [Lo-Dose Aspirin EC] 81 mg PO DAILY 05/01/17 [History] Budesonide/Formoterol 160/4.5 [Symbicort 160/4.5] 2 puff IH BIDR 05/01/17 [ History] Bupropion HCl [Wellbutrin Xl] 300 mg PO DAILY 05/01/17 [History] Metoclopramide [Reglan] 10 mg PO QIDAC 05/01/17 [History] OLANZapine [Zyprexa] 5 mg PO DAILY 05/01/17 [History] Ranitidine HCl [Zantac] 300 mg PO BID 05/01/17 [History] Rosuvastatin [Crestor] 40 mg PO HS 05/01/17 [History] Sertraline [Zoloft] 100 mg PO DAILY 05/01/17 [History] Tiotropium [Spiriva] 18 mcg IH DAILY 05/01/17 [History] Topiramate [Topamax] 50 mg PO BID 05/01/17 [History] diazePAM [Valium] 10 mg PO TID PRN 05/01/17 [History] Cholecalciferol (D-3) [Vitamin D] 1,000 unit PO DAILY 05/27/17 [History] Docusate [Colace] 100 mg PO DAILY 05/27/17 [History] Folic Acid 1 mg PO DAILY 05/27/17 [History] Gabapentin [Neurontin] 800 mg PO TID 06/07/17 [History] Meloxicam [Mobic] 15 mg PO DAILY 06/07/17 [History] Tizanidine HCl 2 mg PO BID 06/07/17 [History] levoFLOXacin [Levaquin] 750 mg PO DAILY #7 tablet 06/09/17 [Rx] Allergies/Adverse Reactions: 3 Allergy/AdvReac Type Severity Reaction Status Date / Time No Known Allergies Allergy Verified 04/30/17 20:44 Certification: Further, I certify that my clinical findings support that this patient is homebound (i.e. absences from home require considerable and taxing effort and are for medical reasons or yazidism services or infrequently or short duration when for other reasons) because: Homebound Reason: Patient requires assistance of a person or device to safely leave home Attestation: My signature below is to certify that this patient is under my care and that I, or nurse practitioner, or a physician's clinical trials assistant working with me, has a face-to -face encounter with this patient.
[2017-06-09] MEDS ORDERED: levoFLOXacin 750 MG TABLET PO SCH (11:00)
[2017-06-09] MEDS: Budesonide/Formoterol 160/4.5 MDI IH SCH (11:28)
[2017-06-09] MEDS: Tiotropium 18 MCG inhalation IH SCH (11:29)
[2017-06-09 15:27] VITALS: BP 142/83
== END 2017-06-09 17:37 | disposition home health service (06) ==
LOC: 3BNU 07:40 → EMEROO 07:40 → SUATTDRO 12:11 → 3BNU 12:33
PROVIDERS: ADMIT Internal Medicine; ATTEND Internal Medicine

== ENCOUNTER 2020-05-27 07:10 | Observation (INO) ==
[2020-05-27] MEDS ORDERED: 0.9 % Sodium Chloride 1,000 ML IVC ONE (07:24)
[2020-05-27] MEDS ORDERED: Prochlorperazine 10 MG/2 ML VIAL IVP STA (07:26)
[2020-05-27 07:47] LABS: Basophils % 0.2 %; Eosinophils # 0.1 K/mcL (0.0-0.6); Eosinophils % 1.1 %; Hematocrit 41.9 % (35.3-44.9); Hemoglobin 13.6 g/dL (11.5-15.4); Immature Granulocytes % 0.6 % (0-4); Lymphocytes # 1.2 K/mcL (0.6-4.6); Lymphocytes % 12.9 %; Mean Corpuscular HGB Conc 32.5 g/dL (31.6-35.5); Mean Corpuscular Hemoglobin 33.8 pg (28.0-33.3); Mean Corpuscular Volume 104.2 fL (83.0-100.0); Mean Platelet Volume 10.8 fL (9.4-12.4); Monocytes # 0.5 K/mcL (0.0-1.3); Monocytes % 5.5 %; Neutrophils # 7.1 K/mcL (1.6-8.9); Platelet Count 175 K/mcL (140-400); Red Blood Count 4.02 M/mcL (3.82-4.97); Red Cell Distribution Width 14.1 % (11.5-14.5); Segmented Neutrophils % 79.7 %; White Blood Count 8.9 K/mcL (4.3-11.1)
[2020-05-27 08:03] LABS: Alanine Aminotransferase 18 Units/L (7-52); Albumin 3.8 g/dL (3.5-5.7); Albumin/Globulin Ratio 1.3 (1.1-2.2); Alkaline Phosphatase 108 Units/L (34-104); Aspartate Amino Transferase 30 Units/L (13-39); BUN/Creatinine Ratio 5 (6-26); Bilirubin,Total 0.3 mg/dL (0.3-1.0); Blood Urea Nitrogen 9 mg/dL (8-23); Calcium 9.3 mg/dL (8.6-10.3); Carbon Dioxide 26 mEq/L (23-29); Chloride 109 mEq/L (98-107); Glucose 106 mg/dL (70-105); Lipase 24 Units/L (11-82); Osmolality,Calculated 299 (280-300); Potassium 2.8 mEq/L (3.5-5.1); Sodium 145 mEq/L (136-145); Total Protein 6.8 g/dL (6.4-8.9); eGFR For African Americans 35 (> 60); eGFR For Non-African Americans 29 (> 60)
[2020-05-27 08:10] LABS: Troponin I < 0.03 ng/mL (< 0.04)
[2020-05-27] MEDS ORDERED: Potassium Chloride 40 MEQ, Lidocaine 1% 2 ML in D5% in Water 500 ML IVPB ONE (08:52)
[2020-05-27] MEDS ORDERED: Potassium Effervescent 25 MEQ TABLET.EFF PO ONE (08:52)
[2020-05-27 09:57] LABS: Bacteria,Urine Few per hpf (None-Few); Bilirubin,Urine Negative (Negative); Blood,Urine Large (Negative); Clarity,Urine Ex.Turbid (Clear); Color,Urine Yellow (Yellow); Glucose,Urine (UA) Normal (Normal); Hyaline Casts,Urine Few per lpf (None Seen); Ketones,Urine Negative (Negative); Leukocyte Esterase,Urine Large (Negative); Mucus,Urine Few per lpf (None-Few); Nitrite,Urine Negative (Negative); Protein,Urine 100 mg/dL (Neg-Trace); RBC,Urine 0-3 per hpf (0-3); Specific Gravity,Urine 1.011 (1.010-1.025); Squamous Epithelial Cell,Urine Many per hpf (None-Few); Urobilinogen,Urine Normal (Normal); WBC,Urine TNTC per hpf (0-3)
[2020-05-27] MEDS ORDERED: cefTRIAXone 1,000 MG in Water for inj. (sterile) 10 ML IVP ONE (11:03)
[2020-05-27] MEDS ORDERED: Naloxone 0.4 MG/ML INJ IVP PRN (11:14)
[2020-05-27] MEDS ORDERED: *HR* Promethazine 25 MG/ML VIAL IM PRN (11:14)
[2020-05-27] MEDS ORDERED: 0.9 % Sodium Chloride 1,000 ML IVC SCH (11:15)
[2020-05-27 11:47] LABS: Magnesium 2.1 mg/dL (1.6-2.6); Phosphorous 2.1 mg/dL (2.7-4.5)
[2020-05-27] MEDS ORDERED: Potassium Phosphate 44 MEQ in 0.9 % Sodium Chloride 250 ML IVPB ONE (11:56)
[2020-05-27] MEDS ORDERED: Ipratropium/Albuterol Neb 3 ML IH PRN (12:25)
[2020-05-27] MEDS ORDERED: diazePAM 10 MG TABLET PO PRN (12:25)
[2020-05-27] MEDS: *HR* Heparin 5,000 UNIT/ML VIAL SQ SCH (17:46)
[2020-05-27] MEDS: Ondansetron ODT 4 MG TAB.RAPDIS SL PRN (17:46)
[2020-05-27] MEDS: Gabapentin 400 MG CAPSULE PO SCH ×2 (17:46→20:51)
[2020-05-27] MEDS: OLANZapine 5 MG TAB.RAPDIS PO SCH (20:50)
[2020-05-27] MEDS: Famotidine 20 MG TABLET PO SCH (20:51)
[2020-05-27] MEDS: Topiramate 100 MG TABLET PO SCH (20:51)
[2020-05-27] MEDS: tiZANidine 4 MG TABLET PO SCH (20:51)
[2020-05-27] MEDS: Budesonide/Formoterol 160/4.5 1 PUFF INH IH SCH (21:59)
[2020-05-27] MEDS ORDERED: 0.9 % Sodium Chloride 500 ML IVC ONE (23:20)
[2020-05-28] MEDS ORDERED: 0.9 % Sodium Chloride 500 ML IVC ONE (00:18)
[2020-05-28 01:18] LABS: Hematocrit 32.9 % (35.3-44.9); Mean Corpuscular HGB Conc 31.6 g/dL (31.6-35.5); Mean Corpuscular Hemoglobin 32.8 pg (28.0-33.3); Mean Corpuscular Volume 103.8 fL (83.0-100.0); Mean Platelet Volume 10.8 fL (9.4-12.4); Platelet Count 127 K/mcL (140-400); Red Blood Count 3.17 M/mcL (3.82-4.97); Red Cell Distribution Width 14.2 % (11.5-14.5); White Blood Count 5.6 K/mcL (4.3-11.1)
[2020-05-28 01:22] LABS: Hemoglobin 10.4 g/dL (11.5-15.4)
[2020-05-28 01:37] LABS: Magnesium 1.9 mg/dL (1.6-2.6); Phosphorous 1.5 mg/dL (2.7-4.5)
[2020-05-28 01:38] LABS: Calcium 7.8 mg/dL (8.6-10.3)
[2020-05-28] MEDS ORDERED: 0.9 % Sodium Chloride 1,000 ML IVC SCH ×2 (01:45→17:15)
[2020-05-28] MEDS: *HR* Heparin 5,000 UNIT/ML VIAL SQ SCH ×2 (04:54→19:04)
[2020-05-28] MEDS ORDERED: Potassium Phosphate 44 MEQ in 0.9 % Sodium Chloride 250 ML IVPB ONE (08:06)
[2020-05-28] MEDS: Budesonide/Formoterol 160/4.5 1 PUFF INH IH SCH ×2 (08:15→20:03)
[2020-05-28] MEDS: Tiotropium 18 MCG inhalation IH SCH (08:24)
[2020-05-28] MEDS: cefTRIAXone 1,000 MG in 0.9 % Sodium Chloride Mini Bag 100 ML IVP SCH (10:10)
[2020-05-28] MEDS: Gabapentin 400 MG CAPSULE PO SCH ×3 (10:12→19:57)
[2020-05-28] MEDS: Folic Acid 1 MG TABLET PO SCH (10:13)
[2020-05-28] MEDS: Aspirin Enteric Coated 81 MG Tablet PO SCH (10:13)
[2020-05-28] MEDS: BuPROPion XL (24 HR) 150 MG TABLET PO SCH (10:14)
[2020-05-28] MEDS: Topiramate 25 MG TABLET PO SCH (10:14)
[2020-05-28] MEDS: Cholecalciferol (D-3) 1,000 UNIT (25MCG) TABLET PO SCH (10:14)
[2020-05-28] MEDS: tiZANidine 4 MG TABLET PO SCH ×2 (10:15→19:58)
[2020-05-28 15:55] LABS: Phosphorous 3.2 mg/dL (2.7-4.5); Potassium 3.9 mEq/L (3.5-5.1)
[2020-05-28] MEDS: Topiramate 100 MG TABLET PO SCH (20:02)
[2020-05-28] MEDS: OLANZapine 5 MG TAB.RAPDIS PO SCH (20:02)
[2020-05-28] MEDS: Famotidine 20 MG TABLET PO SCH (20:14)
[2020-05-28] MEDS ORDERED: Ringers Solution, Lactated 1,000 ML IVC ONE (22:19)
[2020-05-28] MEDS: Ondansetron ODT 4 MG TAB.RAPDIS SL PRN (22:52)
[2020-05-28] MEDS: Ondansetron 4 MG/2 ML VIAL IVP PRN (23:22)
[2020-05-29 00:12] LABS: Adenovirus Not Detected (Not Detect); Bordetella Pertussis Not Detected (Not Detect); Chlamydophila pneumoniae Not Detected (Not Detect); Coronavirus 229E Not Detected (Not Detect); Coronavirus HKU1 Not Detected (Not Detect); Coronavirus NL63 Not Detected (Not Detect); Coronavirus OC43 Not Detected (Not Detect); Human Metapneumovirus Not Detected (Not Detect); Human Rhinovirus/Enterovirus Not Detected (Not Detect); Influenza A Subtype 2009 H1 Not Detected (Not Detect); Influenza B Not Detected (Not Detect); Mycoplasma pneumoniae Not Detected (Not Detect); Parainfluenza Virus 1 Not Detected (Not Detect); Parainfluenza Virus 2 Not Detected (Not Detect); Parainfluenza Virus 3 Not Detected (Not Detect); Parainfluenza Virus 4 Not Detected (Not Detect); Respiratory Syncytial Virus Not Detected (Not Detect); SARS-CoV-2 Not Detected (Not Detect)
[2020-05-29 02:10] LABS: Hemoglobin 10.8 g/dL (11.5-15.4); Red Cell Distribution Width 14.5 % (11.5-14.5)
[2020-05-29 02:12] LABS: Basophils % 0.2 %; Eosinophils # 0.1 K/mcL (0.0-0.6); Eosinophils % 1.4 %; Hematocrit 34.5 % (35.3-44.9); Immature Granulocytes % 0.9 % (0-4); Immature Platelets 2.8 % (1.1-6.1); Lymphocytes % 17.3 %; Mean Corpuscular HGB Conc 31.3 g/dL (31.6-35.5); Mean Corpuscular Hemoglobin 33.9 pg (28.0-33.3); Mean Corpuscular Volume 108.2 fL (83.0-100.0); Mean Platelet Volume 10.9 fL (9.4-12.4); Monocytes # 0.3 K/mcL (0.0-1.3); Monocytes % 5.8 %; Neutrophils # 4.1 K/mcL (1.6-8.9); Platelet Count 130 K/mcL (140-400); Red Blood Count 3.19 M/mcL (3.82-4.97); Segmented Neutrophils % 74.4 %; White Blood Count 5.5 K/mcL (4.3-11.1)
[2020-05-29 02:24] LABS: Calcium 8.3 mg/dL (8.6-10.3); Magnesium 1.6 mg/dL (1.6-2.6); Phosphorous 2.6 mg/dL (2.7-4.5); Potassium 4.1 mEq/L (3.5-5.1)
[2020-05-29] MEDS: *HR* Heparin 5,000 UNIT/ML VIAL SQ SCH (05:07)
[2020-05-29] MEDS: Ondansetron 4 MG/2 ML VIAL IVP PRN (05:22)
[2020-05-29] MEDS: Budesonide/Formoterol 160/4.5 1 PUFF INH IH SCH (08:01)
[2020-05-29] MEDS: Tiotropium 18 MCG inhalation IH SCH (08:02)
[2020-05-29] MEDS: Folic Acid 1 MG TABLET PO SCH (09:44)
[2020-05-29] MEDS: Cholecalciferol (D-3) 1,000 UNIT (25MCG) TABLET PO SCH (09:45)
[2020-05-29] MEDS: Gabapentin 400 MG CAPSULE PO SCH (09:45)
[2020-05-29] MEDS: Aspirin Enteric Coated 81 MG Tablet PO SCH (09:45)
[2020-05-29] MEDS: BuPROPion XL (24 HR) 150 MG TABLET PO SCH (09:46)
[2020-05-29] MEDS: Topiramate 25 MG TABLET PO SCH (09:46)
[2020-05-29] MEDS: cefTRIAXone 1,000 MG in 0.9 % Sodium Chloride Mini Bag 100 ML IVP SCH (09:47)
[2020-05-29] MEDS: tiZANidine 4 MG TABLET PO SCH (09:49)
[2020-05-29 10:46] VITALS: BP 130/76
== END 2020-05-29 15:39 | disposition home or self-care (01) ==
LOC: 3BNU 07:10 → EMEROOARM 07:10 → 3BNU 11:30
PROVIDERS: ADMIT Family Medicine; ATTEND Family Medicine

== ENCOUNTER 2020-06-26 22:26 | Inpatient (IN) ==
[2020-06-26] MEDS ORDERED: Isovue-370 500 ML BOTTLE IVP ONE (22:42)
[2020-06-26 23:45] LABS: Basophils % 0.2 %; Eosinophils # 0.1 K/mcL (0.0-0.6); Eosinophils % 0.8 %; Hematocrit 39.4 % (35.3-44.9); Hemoglobin 13.3 g/dL (11.5-15.4); Immature Granulocytes % 0.5 % (0-4); Lymphocytes # 1.4 K/mcL (0.6-4.6); Lymphocytes % 15.6 %; Mean Corpuscular HGB Conc 33.8 g/dL (31.6-35.5); Mean Corpuscular Hemoglobin 34.6 pg (28.0-33.3); Mean Corpuscular Volume 102.6 fL (83.0-100.0); Mean Platelet Volume 11.7 fL (9.4-12.4); Monocytes # 0.5 K/mcL (0.0-1.3); Monocytes % 5.5 %; Neutrophils # 6.7 K/mcL (1.6-8.9); Platelet Count 143 K/mcL (140-400); Red Blood Count 3.84 M/mcL (3.82-4.97); Red Cell Distribution Width 13.7 % (11.5-14.5); Segmented Neutrophils % 77.4 %; White Blood Count 8.7 K/mcL (4.3-11.1)
[2020-06-26 23:49] LABS: Bacteria,Urine Many per hpf (None-Few); Bilirubin,Urine Negative (Negative); Blood,Urine Small (Negative); Clarity,Urine Ex.Turbid (Clear); Color,Urine Yellow (Yellow); Glucose,Urine (UA) Normal (Normal); Ketones,Urine Negative (Negative); Leukocyte Esterase,Urine Large (Negative); Mucus,Urine Moderate per lpf (None-Few); Nitrite,Urine Negative (Negative); Protein,Urine 30 mg/dL (Neg-Trace); Renal Epithelial Cells,Urine Few per hpf (None-Few); Squamous Epithelial Cell,Urine Moderate per hpf (None-Few); Urobilinogen,Urine Normal (Normal); WBC,Urine 15-30 per hpf (0-3)
[2020-06-27 00:15] LABS: Troponin I < 0.03 ng/mL (< 0.04)
[2020-06-27 00:16] LABS: Alanine Aminotransferase 10 Units/L (7-52); Albumin 3.6 g/dL (3.5-5.7); Albumin/Globulin Ratio 1.2 (1.1-2.2); Alkaline Phosphatase 132 Units/L (34-104); Aspartate Amino Transferase 17 Units/L (13-39); BUN/Creatinine Ratio 6 (6-26); Bilirubin,Direct 0.1 mg/dL (0.0-0.2); Bilirubin,Indirect 0.3 mg/dL (0.0-1.0); Bilirubin,Total 0.4 mg/dL (0.3-1.0); Blood Urea Nitrogen 8 mg/dL (8-23); Calcium 9.3 mg/dL (8.6-10.3); Carbon Dioxide 28 mEq/L (23-29); Chloride 97 mEq/L (98-107); Glucose 94 mg/dL (70-105); Lipase 35 Units/L (11-82); Magnesium 2.1 mg/dL (1.6-2.6); Osmolality,Calculated 284 (280-300); Potassium 2.4 mEq/L (3.5-5.1); Sodium 138 mEq/L (136-145); Total Protein 6.6 g/dL (6.4-8.9); eGFR For African Americans 51 (> 60); eGFR For Non-African Americans 42 (> 60)
[2020-06-27] MEDS ORDERED: cefTRIAXone 1,000 MG in 0.9 % Sodium Chloride Mini Bag 100 ML IVPB ONE (00:50)
[2020-06-27] MEDS ORDERED: Naloxone 0.4 MG/ML INJ IVP PRN (03:30)
[2020-06-27] MEDS ORDERED: Ondansetron ODT 4 MG TAB.RAPDIS SL PRN (03:30)
[2020-06-27] MEDS ORDERED: 0.9 % Sodium Chloride 1,000 ML ONE (03:37)
[2020-06-27] MEDS: 0.9 % Sodium Chloride 1,000 ML IVC SCH ×2 (03:45→12:56)
[2020-06-27] MEDS ORDERED: Prochlorperazine 10 MG/2 ML VIAL IVP PRN ×2 (04:06→11:34)
[2020-06-27 07:21] LABS: Calcium 9.3 mg/dL (8.6-10.3); Magnesium 1.9 mg/dL (1.6-2.6); Potassium 2.5 mEq/L (3.5-5.1)
[2020-06-27] MEDS ORDERED: Potassium Phosphate 44 MEQ in 0.9 % Sodium Chloride 250 ML IVPB ONE (07:41)
[2020-06-27] MEDS: Ondansetron 4 MG/2 ML VIAL IVP PRN ×2 (10:39→20:53)
[2020-06-27] MEDS ORDERED: Metoclopramide 10 MG/2 ML VIAL IVP ONE (15:52)
[2020-06-27] MEDS: Pantoprazole 40 MG VIAL IVP SCH (16:59)
[2020-06-27] MEDS: *HR* Heparin 5,000 UNIT/ML VIAL SQ SCH ×2 (16:59→20:53)
[2020-06-27 17:14] LABS: BUN/Creatinine Ratio 6 (6-26); Blood Urea Nitrogen 6 mg/dL (8-23); Calcium 8.8 mg/dL (8.6-10.3); Carbon Dioxide 25 mEq/L (23-29); Chloride 105 mEq/L (98-107); Glucose 97 mg/dL (70-105); Magnesium 1.9 mg/dL (1.6-2.6); Osmolality,Calculated 288 (280-300); Phosphorous 3.3 mg/dL (2.7-4.5); Potassium 2.8 mEq/L (3.5-5.1); Sodium 140 mEq/L (136-145); eGFR For African Americans > 60 (> 60); eGFR For Non-African Americans 55 (> 60)
[2020-06-27] MEDS ORDERED: Potassium Chloride 40 MEQ, Lidocaine 1% 2 ML in 0.9 % Sodium Chloride 500 ML IVPB ONE (17:45)
[2020-06-27] MEDS ORDERED: Ipratropium/Albuterol Neb 3 ML IH PRN (17:48)
[2020-06-27] MEDS ORDERED: Metoclopramide 10 MG/2 ML VIAL IVP PRN (17:48)
[2020-06-27] MEDS: diazePAM 10 MG TABLET PO PRN (20:53)
[2020-06-27] MEDS: Gabapentin 400 MG CAPSULE PO SCH (20:54)
[2020-06-27] MEDS: Acetaminophen 325 MG TABLET PO PRN (20:54)
[2020-06-27] MEDS: Topiramate 100 MG TABLET PO SCH (20:54)
[2020-06-27] MEDS: OLANZapine 5 MG TAB.RAPDIS PO SCH (20:54)
[2020-06-27] MEDS: Budesonide/Formoterol 160/4.5 1 PUFF INH IH SCH (21:25)
[2020-06-28 02:03] LABS: Hematocrit 33.8 % (35.3-44.9); Mean Corpuscular HGB Conc 33.1 g/dL (31.6-35.5); Mean Corpuscular Hemoglobin 33.5 pg (28.0-33.3); Mean Corpuscular Volume 101.2 fL (83.0-100.0); Mean Platelet Volume 11.2 fL (9.4-12.4); Platelet Count 146 K/mcL (140-400); Red Blood Count 3.34 M/mcL (3.82-4.97); Red Cell Distribution Width 14.2 % (11.5-14.5); White Blood Count 8.6 K/mcL (4.3-11.1)
[2020-06-28 02:04] LABS: Hemoglobin 11.2 g/dL (11.5-15.4)
[2020-06-28 02:21] LABS: BUN/Creatinine Ratio 4 (6-26); Blood Urea Nitrogen 4 mg/dL (8-23); Calcium 8.3 mg/dL (8.6-10.3); Carbon Dioxide 23 mEq/L (23-29); Chloride 109 mEq/L (98-107); Glucose 106 mg/dL (70-105); Osmolality,Calculated 287 (280-300); Potassium 2.9 mEq/L (3.5-5.1); Sodium 140 mEq/L (136-145); eGFR For African Americans > 60 (> 60); eGFR For Non-African Americans 57 (> 60)
[2020-06-28] MEDS: *HR* Heparin 5,000 UNIT/ML VIAL SQ SCH ×3 (05:24→22:47)
[2020-06-28] MEDS: Ondansetron 4 MG/2 ML VIAL IVP PRN ×2 (06:27→15:13)
[2020-06-28] MEDS ORDERED: Potassium Chloride 40 MEQ, Lidocaine 1% 2 ML in 0.9 % Sodium Chloride 500 ML IVPB ONE (07:52)
[2020-06-28] MEDS ORDERED: Potassium Chloride Elixir 20 MEQ/15 ML UDC PO ONE ×2 (07:52→20:00)
[2020-06-28] MEDS: Budesonide/Formoterol 160/4.5 1 PUFF INH IH SCH ×2 (08:27→20:10)
[2020-06-28] MEDS: Tiotropium 18 MCG inhalation IH SCH (08:29)
[2020-06-28] MEDS: Gabapentin 400 MG CAPSULE PO SCH ×3 (08:38→20:52)
[2020-06-28] MEDS: BuPROPion XL (24 HR) 150 MG TABLET PO SCH (08:39)
[2020-06-28] MEDS: Pantoprazole 40 MG VIAL IVP SCH (08:39)
[2020-06-28] MEDS: Topiramate 25 MG TABLET PO SCH (08:42)
[2020-06-28] MEDS: diazePAM 10 MG TABLET PO PRN (15:13)
[2020-06-28] MEDS: Acetaminophen 325 MG TABLET PO PRN (15:13)
[2020-06-28] MEDS: Ringers Solution, Lactated 1,000 ML IVC SCH (15:14)
[2020-06-28] MEDS: OLANZapine 5 MG TAB.RAPDIS PO SCH (20:52)
[2020-06-28] MEDS: Topiramate 100 MG TABLET PO SCH (20:52)
[2020-06-29] MEDS: *HR* Heparin 5,000 UNIT/ML VIAL SQ SCH ×3 (05:00→20:43)
[2020-06-29] MEDS: Gabapentin 400 MG CAPSULE PO SCH ×3 (07:32→20:43)
[2020-06-29] MEDS: BuPROPion XL (24 HR) 150 MG TABLET PO SCH (07:32)
[2020-06-29] MEDS: Topiramate 25 MG TABLET PO SCH (07:32)
[2020-06-29] MEDS: Pantoprazole 40 MG VIAL IVP SCH (07:33)
[2020-06-29 08:42] LABS: BUN/Creatinine Ratio 4 (6-26); Blood Urea Nitrogen 4 mg/dL (8-23); Calcium 8.6 mg/dL (8.6-10.3); Carbon Dioxide 23 mEq/L (23-29); Chloride 113 mEq/L (98-107); Glucose 91 mg/dL (70-105); Osmolality,Calculated 292 (280-300); Potassium 3.8 mEq/L (3.5-5.1); Sodium 143 mEq/L (136-145); eGFR For African Americans > 60 (> 60); eGFR For Non-African Americans 58 (> 60)
[2020-06-29] MEDS: Ringers Solution, Lactated 1,000 ML IVC SCH (09:05)
[2020-06-29] MEDS: Ondansetron 4 MG/2 ML VIAL IVP PRN ×2 (09:05→20:50)
[2020-06-29 09:19] LABS: Hematocrit 35.5 % (35.3-44.9); Hemoglobin 11.4 g/dL (11.5-15.4); Mean Corpuscular HGB Conc 32.1 g/dL (31.6-35.5); Mean Corpuscular Hemoglobin 33.7 pg (28.0-33.3); Mean Platelet Volume 11.1 fL (9.4-12.4); Platelet Count 153 K/mcL (140-400); Red Blood Count 3.38 M/mcL (3.82-4.97); Red Cell Distribution Width 14.6 % (11.5-14.5); White Blood Count 8.2 K/mcL (4.3-11.1)
[2020-06-29] MEDS: Tiotropium 18 MCG inhalation IH SCH (11:41)
[2020-06-29] MEDS: Budesonide/Formoterol 160/4.5 1 PUFF INH IH SCH ×2 (11:41→21:34)
[2020-06-29] MEDS ORDERED: Lidocaine -MPF 2% 2 ML VIAL ONE (12:52)
[2020-06-29] MEDS: 0.9 % Sodium Chloride 500 ML IVC SCH (14:04)
[2020-06-29] MEDS: OLANZapine 5 MG TAB.RAPDIS PO SCH (20:43)
[2020-06-29] MEDS: Topiramate 100 MG TABLET PO SCH (20:43)
[2020-06-30] MEDS: *HR* Heparin 5,000 UNIT/ML VIAL SQ SCH ×2 (04:21→14:48)
[2020-06-30 07:12] LABS: Hematocrit 33.1 % (35.3-44.9); Mean Corpuscular Volume 106.4 fL (83.0-100.0); Red Blood Count 3.11 M/mcL (3.82-4.97)
[2020-06-30 07:14] LABS: Hemoglobin 10.6 g/dL (11.5-15.4); Immature Platelets 3.4 % (1.1-6.1); Mean Corpuscular Hemoglobin 34.1 pg (28.0-33.3); Mean Platelet Volume 10.8 fL (9.4-12.4); Red Cell Distribution Width 14.8 % (11.5-14.5)
[2020-06-30] MEDS: Ondansetron 4 MG/2 ML VIAL IVP PRN ×2 (07:17→14:54)
[2020-06-30] MEDS: BuPROPion XL (24 HR) 150 MG TABLET PO SCH (07:17)
[2020-06-30] MEDS: Gabapentin 400 MG CAPSULE PO SCH ×2 (07:17→14:54)
[2020-06-30] MEDS: Pantoprazole 40 MG VIAL IVP SCH (07:17)
[2020-06-30] MEDS: Topiramate 25 MG TABLET PO SCH (07:17)
[2020-06-30] MEDS: 0.9 % Sodium Chloride 500 ML IVC SCH ×2 (07:18→10:18)
[2020-06-30 07:24] LABS: BUN/Creatinine Ratio 6 (6-26); Blood Urea Nitrogen 6 mg/dL (8-23); Calcium 8.8 mg/dL (8.6-10.3); Carbon Dioxide 23 mEq/L (23-29); Chloride 109 mEq/L (98-107); Glucose 98 mg/dL (70-105); Magnesium 1.8 mg/dL (1.6-2.6); Osmolality,Calculated 294 (280-300); Potassium 3.2 mEq/L (3.5-5.1); Sodium 143 mEq/L (136-145); eGFR For African Americans > 60 (> 60); eGFR For Non-African Americans 58 (> 60)
[2020-06-30] MEDS ORDERED: Potassium Chloride Elixir 20 MEQ/15 ML UDC PO ONE (07:43)
[2020-06-30] MEDS: Budesonide/Formoterol 160/4.5 1 PUFF INH IH SCH (10:00)
[2020-06-30] MEDS ORDERED: Fluconazole 40 MG/ML UDC PO SCH (10:00)
[2020-06-30] MEDS: Tiotropium 18 MCG inhalation IH SCH (10:00)
[2020-06-30 11:24] VITALS: BP 132/75
== END 2020-06-30 16:26 | disposition home health service (06) | DRG 369 ==
LOC: 2ANU 22:26 → EMEROOARM 22:26 → SUATTDRO 06-27 02:05 → 2ANU 06-27 03:15
PROVIDERS: ADMIT Internal Medicine; ATTEND Student in an Organized Health Care Education/Training Program
PROC: ENDOEBX (2020-06-29 13:50)

== ENCOUNTER 2020-07-16 14:10 | Inpatient (IN) ==
[2020-07-16] MEDS ORDERED: 0.9 % Sodium Chloride 1,000 ML IVC ONE (14:31)
[2020-07-16 15:05] LABS: Bilirubin,Urine Negative (Negative); Blood,Urine Small (Negative); Clarity,Urine Turbid (Clear); Color,Urine Yellow (Yellow); Glucose,Urine (UA) Normal (Normal); Ketones,Urine Negative (Negative); Leukocyte Esterase,Urine Large (Negative); Mucus,Urine Few per lpf (None-Few); Nitrite,Urine Positive (Negative); PH,Urine 7.5 pH Units (5.0-8.0); Protein,Urine 30 mg/dL (Neg-Trace); RBC,Urine 0-3 per hpf (0-3); Squamous Epithelial Cell,Urine Few per hpf (None-Few); Urobilinogen,Urine Normal (Normal); WBC,Urine 50-100 per hpf (0-3)
[2020-07-16] MEDS ORDERED: cefTRIAXone 1,000 MG in Water for inj. (sterile) 10 ML IVP ONE (15:17)
[2020-07-16 15:32] LABS: Basophils % 0.3 %; Eosinophils # 0.1 K/mcL (0.0-0.6); Eosinophils % 0.8 %; Hematocrit 35.4 % (35.3-44.9); Hemoglobin 11.4 g/dL (11.5-15.4); Immature Granulocytes % 0.6 % (0-4); Lymphocytes # 0.9 K/mcL (0.6-4.6); Lymphocytes % 9.7 %; Mean Corpuscular HGB Conc 32.2 g/dL (31.6-35.5); Mean Corpuscular Hemoglobin 33.2 pg (28.0-33.3); Mean Corpuscular Volume 103.2 fL (83.0-100.0); Mean Platelet Volume 10.2 fL (9.4-12.4); Monocytes # 0.4 K/mcL (0.0-1.3); Monocytes % 4.9 %; Neutrophils # 7.6 K/mcL (1.6-8.9); Platelet Count 199 K/mcL (140-400); Red Blood Count 3.43 M/mcL (3.82-4.97); Red Cell Distribution Width 14.6 % (11.5-14.5); Segmented Neutrophils % 83.7 %
[2020-07-16 15:49] LABS: BUN/Creatinine Ratio 10 (6-26); Blood Urea Nitrogen 11 mg/dL (8-23); Calcium 9.4 mg/dL (8.6-10.3); Carbon Dioxide 30 mEq/L (23-29); Chloride 101 mEq/L (98-107); Glucose 123 mg/dL (70-105); Osmolality,Calculated 291 (280-300); Potassium 2.7 mEq/L (3.5-5.1); Sodium 140 mEq/L (136-145); Troponin I < 0.03 ng/mL (< 0.04); eGFR For African Americans 59 (> 60); eGFR For Non-African Americans 49 (> 60)
[2020-07-16 17:04] LABS: Adenovirus Not Detected (Not Detect); Coronavirus 229E Not Detected (Not Detect); Coronavirus HKU1 Not Detected (Not Detect); Coronavirus NL63 Not Detected (Not Detect); Coronavirus OC43 Not Detected (Not Detect); Human Metapneumovirus Not Detected (Not Detect); SARS-CoV-2 Not Detected (Not Detect)
[2020-07-16 17:05] LABS: Bordetella Pertussis Not Detected (Not Detect); Chlamydophila pneumoniae Not Detected (Not Detect); Human Rhinovirus/Enterovirus Not Detected (Not Detect); Influenza A Subtype 2009 H1 Not Detected (Not Detect); Influenza B Not Detected (Not Detect); Mycoplasma pneumoniae Not Detected (Not Detect); Parainfluenza Virus 1 Not Detected (Not Detect); Parainfluenza Virus 2 Not Detected (Not Detect); Parainfluenza Virus 3 Not Detected (Not Detect); Parainfluenza Virus 4 Not Detected (Not Detect); Respiratory Syncytial Virus Not Detected (Not Detect)
[2020-07-16] MEDS ORDERED: *HR* Promethazine 25 MG/ML VIAL IM PRN (17:35)
[2020-07-16] MEDS ORDERED: Acetaminophen 325 MG TABLET PO PRN (17:35)
[2020-07-16] MEDS ORDERED: Ondansetron 4 MG/2 ML VIAL IVP PRN (17:35)
[2020-07-16] MEDS ORDERED: MOM Conc 10 ML UD.LIQ PO PRN (17:35)
[2020-07-16] MEDS ORDERED: Naloxone 0.4 MG/ML INJ IVP PRN (17:35)
[2020-07-16] MEDS ORDERED: Ipratropium/Albuterol Neb 3 ML IH PRN (17:38)
[2020-07-16] MEDS ORDERED: diazePAM 10 MG TABLET PO PRN (17:38)
[2020-07-16] MEDS: Budesonide/Formoterol 160/4.5 1 PUFF INH IH SCH (20:11)
[2020-07-17 06:26] LABS: Basophils # 0.1 K/mcL (0.0-0.2); Basophils % 0.5 %; Eosinophils # 0.1 K/mcL (0.0-0.6); Hematocrit 35.3 % (35.3-44.9); Hemoglobin 11.7 g/dL (11.5-15.4); Immature Granulocytes % 1.6 % (0-4); Immature Platelets 6.6 % (1.1-6.1); Lymphocytes # 1.2 K/mcL (0.6-4.6); Lymphocytes % 11.2 %; Mean Corpuscular HGB Conc 33.1 g/dL (31.6-35.5); Mean Corpuscular Volume 102.6 fL (83.0-100.0); Monocytes # 0.5 K/mcL (0.0-1.3); Monocytes % 4.6 %; Neutrophils # 8.6 K/mcL (1.6-8.9); Nucleated Red Blood Cells 0.2 /100 WBC (0); Platelet Count 166 K/mcL (140-400); Red Blood Count 3.44 M/mcL (3.82-4.97); Red Cell Distribution Width 14.4 % (11.5-14.5); Segmented Neutrophils % 81.1 %; White Blood Count 10.6 K/mcL (4.3-11.1)
[2020-07-17 06:41] LABS: Platelet Estimate Normal (Normal)
[2020-07-17 07:20] LABS: BUN/Creatinine Ratio 10 (6-26); Blood Urea Nitrogen 9 mg/dL (8-23); Carbon Dioxide 24 mEq/L (23-29); Chloride 109 mEq/L (98-107); Glucose 112 mg/dL (70-105); Osmolality,Calculated 291 (280-300); Phosphorous 2.3 mg/dL (2.7-4.5); Potassium 4.6 mEq/L (3.5-5.1); Sodium 141 mEq/L (136-145); Thyroid Stimulating Hormone 2.118 mcIU/mL (0.340-5.600); eGFR For African Americans > 60 (> 60); eGFR For Non-African Americans > 60 (> 60)
[2020-07-17] MEDS: Budesonide/Formoterol 160/4.5 1 PUFF INH IH SCH ×2 (08:22→20:00)
[2020-07-17] MEDS ORDERED: Potassium Chloride Elixir 20 MEQ/15 ML UDC PO SCH (09:00)
[2020-07-17] MEDS ORDERED: cefTRIAXone 1,000 MG in Water for inj. (sterile) 10 ML IVPB SCH (09:00)
[2020-07-17] MEDS: Folic Acid 1 MG TABLET PO SCH (09:44)
[2020-07-17] MEDS: Gabapentin 400 MG CAPSULE PO SCH ×3 (09:44→19:54)
[2020-07-17] MEDS: BuPROPion XL (24 HR) 150 MG TABLET PO SCH (09:44)
[2020-07-17] MEDS: Aspirin Enteric Coated 81 MG Tablet PO SCH (09:44)
[2020-07-17] MEDS: Topiramate 25 MG TABLET PO SCH (09:44)
[2020-07-17] MEDS: Cholecalciferol (D-3) 1,000 UNIT (25MCG) TABLET PO SCH (09:44)
[2020-07-17] MEDS ORDERED: cefTRIAXone 1,000 MG in Water for inj. (sterile) 10 ML IVP SCH (10:00)
[2020-07-17] MEDS: *HR* HYDROcodone/Acet 5/325 mg TABLET PO PRN (19:55)
[2020-07-17] MEDS: Famotidine 20 MG TABLET PO SCH (19:55)
[2020-07-17] MEDS ORDERED: OLANZapine 5 MG TAB.RAPDIS PO SCH (21:00)
[2020-07-17] MEDS ORDERED: Topiramate 100 MG TABLET PO SCH (21:00)
[2020-07-18 01:14] LABS: Hematocrit 34.7 % (35.3-44.9); Hemoglobin 11.2 g/dL (11.5-15.4); Mean Corpuscular HGB Conc 32.3 g/dL (31.6-35.5); Mean Corpuscular Hemoglobin 33.9 pg (28.0-33.3); Mean Corpuscular Volume 105.2 fL (83.0-100.0); Mean Platelet Volume 10.7 fL (9.4-12.4); Platelet Count 195 K/mcL (140-400); Red Cell Distribution Width 14.7 % (11.5-14.5)
[2020-07-18 01:38] LABS: BUN/Creatinine Ratio 12 (6-26); Blood Urea Nitrogen 10 mg/dL (8-23); Calcium 9.2 mg/dL (8.6-10.3); Carbon Dioxide 24 mEq/L (23-29); Chloride 109 mEq/L (98-107); Glucose 117 mg/dL (70-105); Osmolality,Calculated 292 (280-300); Potassium 4.3 mEq/L (3.5-5.1); Sodium 141 mEq/L (136-145); eGFR For African Americans > 60 (> 60); eGFR For Non-African Americans > 60 (> 60)
[2020-07-18] MEDS: *HR* HYDROcodone/Acet 5/325 mg TABLET PO PRN ×2 (02:43→10:32)
[2020-07-18] MEDS: Budesonide/Formoterol 160/4.5 1 PUFF INH IH SCH ×2 (08:19→21:02)
[2020-07-18] MEDS: BuPROPion XL (24 HR) 150 MG TABLET PO SCH (10:32)
[2020-07-18] MEDS: Aspirin Enteric Coated 81 MG Tablet PO SCH (10:32)
[2020-07-18] MEDS: Folic Acid 1 MG TABLET PO SCH (10:33)
[2020-07-18] MEDS: Gabapentin 400 MG CAPSULE PO SCH ×2 (10:33→15:25)
[2020-07-18] MEDS: Cholecalciferol (D-3) 1,000 UNIT (25MCG) TABLET PO SCH (10:33)
[2020-07-18] MEDS: Topiramate 25 MG TABLET PO SCH (10:33)
[2020-07-18] MEDS ORDERED: Acetaminophen 325 MG TABLET PO PRN (15:57)
[2020-07-18 16:57] LABS: ABG Base Excess 2 mEq/L (-2 to 3); ABG HCO3 28 mEq/L (21-27); ABG Oxygen Saturation 97 % (95-98); ABG PCO2 48 mmHg (35-45); ABG PH 7.37 pH Units (7.32-7.45); ABG PO2 99 mmHg (85-104); ABG TCO2 29 mEq/L (20-26)
[2020-07-18] MEDS ORDERED: Isovue-370 500 ML BOTTLE IVP ONE (17:08)
[2020-07-18] MEDS ORDERED: Ringers Solution, Lactated 1,000 ML IVC SCH (17:15)
[2020-07-18] MEDS: Famotidine 20 MG TABLET PO SCH (21:59)
[2020-07-19 03:21] LABS: Alanine Aminotransferase 13 Units/L (7-52); Albumin 3.7 g/dL (3.5-5.7); Albumin/Globulin Ratio 1.3 (1.1-2.2); Alkaline Phosphatase 124 Units/L (34-104); Aspartate Amino Transferase 38 Units/L (13-39); BUN/Creatinine Ratio 12 (6-26); Bilirubin,Direct 0.1 mg/dL (0.0-0.2); Bilirubin,Indirect 0.3 mg/dL (0.0-1.0); Bilirubin,Total 0.4 mg/dL (0.3-1.0); Blood Urea Nitrogen 11 mg/dL (8-23); Calcium 9.6 mg/dL (8.6-10.3); Carbon Dioxide 23 mEq/L (23-29); Chloride 106 mEq/L (98-107); Globulin 2.9 g/dL (2.4-3.5); Glucose 116 mg/dL (70-105); Osmolality,Calculated 292 (280-300); Potassium 3.6 mEq/L (3.5-5.1); Sodium 141 mEq/L (136-145); Total Protein 6.6 g/dL (6.4-8.9); eGFR For African Americans > 60 (> 60); eGFR For Non-African Americans > 60 (> 60)
[2020-07-19] MEDS: Budesonide/Formoterol 160/4.5 1 PUFF INH IH SCH ×2 (07:51→19:36)
[2020-07-19 09:26] LABS: Basophils % 0.3 %; Eosinophils # 0.1 K/mcL (0.0-0.6); Eosinophils % 1.1 %; Hematocrit 37.9 % (35.3-44.9); Lymphocytes % 12.9 %; Mean Corpuscular HGB Conc 31.7 g/dL (31.6-35.5); Mean Corpuscular Hemoglobin 34.2 pg (28.0-33.3); Mean Platelet Volume 10.4 fL (9.4-12.4); Monocytes # 0.4 K/mcL (0.0-1.3); Neutrophils # 6.3 K/mcL (1.6-8.9); Nucleated Red Blood Cells 0.3 /100 WBC (0); Platelet Count 196 K/mcL (140-400); Red Blood Count 3.51 M/mcL (3.82-4.97); Red Cell Distribution Width 14.7 % (11.5-14.5); Segmented Neutrophils % 79.7 %
[2020-07-19] MEDS: Cholecalciferol (D-3) 1,000 UNIT (25MCG) TABLET PO SCH (10:55)
[2020-07-19] MEDS: Aspirin Enteric Coated 81 MG Tablet PO SCH (10:55)
[2020-07-19] MEDS: Folic Acid 1 MG TABLET PO SCH (10:56)
[2020-07-19] MEDS: Famotidine 20 MG TABLET PO SCH (21:57)
[2020-07-20 02:55] LABS: Basophils % 0.3 %; Eosinophils # 0.1 K/mcL (0.0-0.6); Eosinophils % 0.7 %; Hematocrit 36.4 % (35.3-44.9); Hemoglobin 11.9 g/dL (11.5-15.4); Immature Granulocytes % 0.5 % (0-4); Lymphocytes % 6.3 %; Mean Corpuscular HGB Conc 32.7 g/dL (31.6-35.5); Mean Corpuscular Hemoglobin 34.8 pg (28.0-33.3); Mean Corpuscular Volume 106.4 fL (83.0-100.0); Mean Platelet Volume 10.8 fL (9.4-12.4); Monocytes # 0.6 K/mcL (0.0-1.3); Monocytes % 4.1 %; Neutrophils # 11.8 K/mcL (1.6-8.9); Platelet Count 214 K/mcL (140-400); Red Blood Count 3.42 M/mcL (3.82-4.97); Red Cell Distribution Width 14.6 % (11.5-14.5); Segmented Neutrophils % 88.1 %; White Blood Count 13.4 K/mcL (4.3-11.1)
[2020-07-20 02:58] LABS: Lymphocytes # 0.8 K/mcL (0.6-4.6)
[2020-07-20 03:18] LABS: BUN/Creatinine Ratio 11 (6-26); Blood Urea Nitrogen 9 mg/dL (8-23); Calcium 9.7 mg/dL (8.6-10.3); Carbon Dioxide 22 mEq/L (23-29); Chloride 107 mEq/L (98-107); Glucose 95 mg/dL (70-105); Osmolality,Calculated 292 (280-300); Potassium 3.4 mEq/L (3.5-5.1); Sodium 142 mEq/L (136-145); eGFR For African Americans > 60 (> 60); eGFR For Non-African Americans > 60 (> 60)
[2020-07-20 03:19] LABS: Magnesium 2.2 mg/dL (1.6-2.6); Phosphorous 3.1 mg/dL (2.7-4.5)
[2020-07-20] MEDS: Budesonide/Formoterol 160/4.5 1 PUFF INH IH SCH ×2 (07:32→21:21)
[2020-07-20] MEDS: Cholecalciferol (D-3) 1,000 UNIT (25MCG) TABLET PO SCH (08:42)
[2020-07-20] MEDS: Aspirin Enteric Coated 81 MG Tablet PO SCH (08:42)
[2020-07-20] MEDS: Folic Acid 1 MG TABLET PO SCH (08:42)
[2020-07-20] MEDS ORDERED: Potassium Chloride Elixir 20 MEQ/15 ML UDC PO ONE (09:00)
[2020-07-20] MEDS ORDERED: Piperacillin/Tazobactam 3.375 GM in 0.9 % Sodium Chloride Mini Bag 100 ML IVPB SCH (10:04)
[2020-07-20] MEDS ORDERED: 0.9 % Sodium Chloride 1,000 ML IVC ONE (10:06)
[2020-07-20] MEDS ORDERED: Thiamine (B-1) 100 MG in 0.9 % Sodium Chloride 50 ML IVPB SCH (10:30)
[2020-07-20] MEDS: 0.9 % Sodium Chloride 1,000 ML IVC SCH (13:59)
[2020-07-20] MEDS: Levalbuterol Neb 0.63 MG/3 ML IH SCH ×3 (14:34→21:21)
[2020-07-20 17:06] LABS: Bacteria,Urine Few per hpf (None-Few); Bilirubin,Urine Negative (Negative); Blood,Urine Small (Negative); Clarity,Urine Clear (Clear); Color,Urine Light-Yellow (Yellow); Glucose,Urine (UA) Normal (Normal); Ketones,Urine Trace mg/dL (Negative); Leukocyte Esterase,Urine Large (Negative); Mucus,Urine Few per lpf (None-Few); Nitrite,Urine Negative (Negative); PH,Urine 6.5 pH Units (5.0-8.0); Protein,Urine Trace mg/dL (Neg-Trace); RBC,Urine 0-3 per hpf (0-3); Specific Gravity,Urine 1.013 (1.010-1.025); Squamous Epithelial Cell,Urine Few per hpf (None-Few); Urobilinogen,Urine Normal (Normal); WBC,Urine 30-50 per hpf (0-3)
[2020-07-20 17:30] LABS: ABG Base Excess -2 mEq/L (-2 to 3); ABG HCO3 24 mEq/L (21-27); ABG Oxygen Saturation 93 % (95-98); ABG PCO2 41 mmHg (35-45); ABG PH 7.37 pH Units (7.32-7.45); ABG PO2 70 mmHg (85-104); ABG TCO2 25 mEq/L (20-26)
[2020-07-20] MEDS ORDERED: Isovue-370 500 ML BOTTLE IVP ONE (17:39)
[2020-07-20] MEDS: Famotidine 20 MG TABLET PO SCH (21:18)
[2020-07-20] MEDS: Thiamine (B-1) 100 MG in 0.9 % Sodium Chloride 50 ML IVPB SCH (21:19)
[2020-07-21] MEDS: Levalbuterol Neb 0.63 MG/3 ML IH SCH ×4 (03:18→21:22)
[2020-07-21] MEDS: Piperacillin/Tazobactam 3.375 GM in 0.9 % Sodium Chloride Mini Bag 100 ML IVPB SCH ×4 (03:29→23:10)
[2020-07-21] MEDS: 0.9 % Sodium Chloride 1,000 ML IVC SCH ×2 (04:34→20:53)
[2020-07-21 05:53] LABS: Basophils # 0.1 K/mcL (0.0-0.2); Basophils % 0.4 %; Eosinophils # 0.1 K/mcL (0.0-0.6); Eosinophils % 0.4 %; Hematocrit 37.6 % (35.3-44.9); Immature Granulocytes % 1.2 % (0-4); Lymphocytes % 7.4 %; Mean Corpuscular HGB Conc 31.9 g/dL (31.6-35.5); Mean Corpuscular Hemoglobin 33.6 pg (28.0-33.3); Mean Corpuscular Volume 105.3 fL (83.0-100.0); Mean Platelet Volume 10.7 fL (9.4-12.4); Monocytes # 0.5 K/mcL (0.0-1.3); Monocytes % 3.7 %; Neutrophils # 11.9 K/mcL (1.6-8.9); Platelet Count 186 K/mcL (140-400); Red Blood Count 3.57 M/mcL (3.82-4.97); Red Cell Distribution Width 14.6 % (11.5-14.5); Segmented Neutrophils % 86.9 %
[2020-07-21 05:54] LABS: White Blood Count 13.7 K/mcL (4.3-11.1)
[2020-07-21 06:15] LABS: BUN/Creatinine Ratio 12 (6-26); Blood Urea Nitrogen 10 mg/dL (8-23); Calcium 9.5 mg/dL (8.6-10.3); Carbon Dioxide 23 mEq/L (23-29); Chloride 114 mEq/L (98-107); Glucose 71 mg/dL (70-105); Magnesium 2.3 mg/dL (1.6-2.6); Osmolality,Calculated 302 (280-300); Sodium 147 mEq/L (136-145); eGFR For African Americans > 60 (> 60); eGFR For Non-African Americans > 60 (> 60)
[2020-07-21] MEDS: Cholecalciferol (D-3) 1,000 UNIT (25MCG) TABLET PO SCH (08:46)
[2020-07-21] MEDS: Folic Acid 1 MG TABLET PO SCH (08:46)
[2020-07-21] MEDS: Aspirin Enteric Coated 81 MG Tablet PO SCH (08:46)
[2020-07-21] MEDS: Budesonide/Formoterol 160/4.5 1 PUFF INH IH SCH ×2 (09:22→21:23)
[2020-07-21] MEDS: *HR* LORazepam 0.5 MG TABLET PO SCH ×3 (11:05→20:52)
[2020-07-21] MEDS: OLANZapine 10 MG TAB.RAPDIS PO SCH (11:05)
[2020-07-21] MEDS: Thiamine (B-1) 100 MG in 0.9 % Sodium Chloride 50 ML IVPB SCH ×3 (13:38→20:52)
[2020-07-21] MEDS: Famotidine 20 MG TABLET PO SCH (20:52)
[2020-07-22] MEDS: Levalbuterol Neb 0.63 MG/3 ML IH SCH ×4 (03:06→21:56)
[2020-07-22 05:13] LABS: Basophils # 0.1 K/mcL (0.0-0.2); Basophils % 0.5 %; Eosinophils # 0.1 K/mcL (0.0-0.6); Eosinophils % 0.8 %; Hematocrit 33.1 % (35.3-44.9); Hemoglobin 10.5 g/dL (11.5-15.4); Lymphocytes % 8.6 %; Mean Corpuscular HGB Conc 31.7 g/dL (31.6-35.5); Mean Corpuscular Hemoglobin 33.1 pg (28.0-33.3); Mean Corpuscular Volume 104.4 fL (83.0-100.0); Mean Platelet Volume 10.6 fL (9.4-12.4); Monocytes # 0.4 K/mcL (0.0-1.3); Monocytes % 3.2 %; Neutrophils # 9.4 K/mcL (1.6-8.9); Nucleated Red Blood Cells 0.2 /100 WBC (0); Platelet Count 203 K/mcL (140-400); Red Blood Count 3.17 M/mcL (3.82-4.97); Red Cell Distribution Width 14.6 % (11.5-14.5); Segmented Neutrophils % 84.9 %; White Blood Count 11.1 K/mcL (4.3-11.1)
[2020-07-22 05:38] LABS: BUN/Creatinine Ratio 9 (6-26); Blood Urea Nitrogen 7 mg/dL (8-23); Calcium 9.1 mg/dL (8.6-10.3); Carbon Dioxide 21 mEq/L (23-29); Chloride 115 mEq/L (98-107); Glucose 67 mg/dL (70-105); Osmolality,Calculated 302 (280-300); Potassium 3.2 mEq/L (3.5-5.1); Sodium 148 mEq/L (136-145); eGFR For African Americans > 60 (> 60); eGFR For Non-African Americans > 60 (> 60)
[2020-07-22] MEDS: Piperacillin/Tazobactam 3.375 GM in 0.9 % Sodium Chloride Mini Bag 100 ML IVPB SCH ×2 (08:54→20:15)
[2020-07-22] MEDS: 0.9 % Sodium Chloride 1,000 ML IVC SCH (08:55)
[2020-07-22] MEDS: *HR* LORazepam 0.5 MG TABLET PO SCH ×2 (08:57→14:36)
[2020-07-22] MEDS: Cholecalciferol (D-3) 1,000 UNIT (25MCG) TABLET PO SCH (08:57)
[2020-07-22] MEDS: Aspirin Enteric Coated 81 MG Tablet PO SCH (08:57)
[2020-07-22] MEDS: Folic Acid 1 MG TABLET PO SCH (08:57)
[2020-07-22] MEDS: Thiamine (B-1) 100 MG in 0.9 % Sodium Chloride 50 ML IVPB SCH ×3 (08:57→21:32)
[2020-07-22] MEDS: OLANZapine 10 MG TAB.RAPDIS PO SCH (08:57)
[2020-07-22] MEDS: Budesonide/Formoterol 160/4.5 1 PUFF INH IH SCH ×2 (10:35→21:56)
[2020-07-22] MEDS: D5% in Water 1,000 ML IVC SCH (10:52)
[2020-07-22] MEDS: Potassium Chloride Elixir 20 MEQ/15 ML UDC PO SCH ×2 (10:52→14:36)
[2020-07-22] MEDS: *HR* LORazepam 1 MG TABLET PO SCH (21:32)
[2020-07-22] MEDS: Famotidine 20 MG TABLET PO SCH (21:32)
[2020-07-23] MEDS: Piperacillin/Tazobactam 3.375 GM in 0.9 % Sodium Chloride Mini Bag 100 ML IVPB SCH ×3 (00:25→18:28)
[2020-07-23] MEDS: Levalbuterol Neb 0.63 MG/3 ML IH SCH ×4 (03:24→22:03)
[2020-07-23 04:50] LABS: Basophils # 0.1 K/mcL (0.0-0.2); Basophils % 0.8 %; Eosinophils # 0.1 K/mcL (0.0-0.6); Eosinophils % 1.4 %; Hematocrit 36.7 % (35.3-44.9); Hemoglobin 11.5 g/dL (11.5-15.4); Immature Granulocytes % 1.7 % (0-4); Lymphocytes # 1.1 K/mcL (0.6-4.6); Lymphocytes % 12.5 %; Mean Corpuscular HGB Conc 31.3 g/dL (31.6-35.5); Mean Corpuscular Hemoglobin 33.8 pg (28.0-33.3); Mean Corpuscular Volume 107.9 fL (83.0-100.0); Mean Platelet Volume 10.9 fL (9.4-12.4); Monocytes # 0.4 K/mcL (0.0-1.3); Monocytes % 4.7 %; Platelet Count 200 K/mcL (140-400); Red Cell Distribution Width 14.7 % (11.5-14.5); Segmented Neutrophils % 78.9 %; White Blood Count 8.9 K/mcL (4.3-11.1)
[2020-07-23 05:08] LABS: BUN/Creatinine Ratio 8 (6-26); Blood Urea Nitrogen 6 mg/dL (8-23); Calcium 9.6 mg/dL (8.6-10.3); Carbon Dioxide 20 mEq/L (23-29); Chloride 115 mEq/L (98-107); Glucose 87 mg/dL (70-105); Magnesium 2.1 mg/dL (1.6-2.6); Osmolality,Calculated 301 (280-300); Phosphorous 3.2 mg/dL (2.7-4.5); Potassium 3.1 mEq/L (3.5-5.1); Sodium 147 mEq/L (136-145); eGFR For African Americans > 60 (> 60); eGFR For Non-African Americans > 60 (> 60)
[2020-07-23] MEDS: D5% in Water 1,000 ML IVC SCH (07:52)
[2020-07-23] MEDS: Aspirin Enteric Coated 81 MG Tablet PO SCH (10:12)
[2020-07-23] MEDS: Folic Acid 1 MG TABLET PO SCH (10:12)
[2020-07-23] MEDS: OLANZapine 10 MG TAB.RAPDIS PO SCH (10:15)
[2020-07-23] MEDS: Cholecalciferol (D-3) 1,000 UNIT (25MCG) TABLET PO SCH (10:15)
[2020-07-23] MEDS: Budesonide/Formoterol 160/4.5 1 PUFF INH IH SCH ×2 (10:26→22:05)
[2020-07-23] MEDS: *HR* LORazepam 1 MG TABLET PO SCH ×3 (10:35→20:49)
[2020-07-23] MEDS: Potassium Chloride Elixir 20 MEQ/15 ML UDC PO SCH ×2 (10:36→12:41)
[2020-07-23] MEDS: Thiamine (B-1) 100 MG in 0.9 % Sodium Chloride 50 ML IVPB SCH ×3 (10:55→20:49)
[2020-07-23] MEDS: Famotidine 20 MG TABLET PO SCH (20:49)
[2020-07-24] MEDS: Piperacillin/Tazobactam 3.375 GM in 0.9 % Sodium Chloride Mini Bag 100 ML IVPB SCH ×2 (00:46→09:55)
[2020-07-24] MEDS: D5% in Water 1,000 ML IVC SCH ×2 (00:47→07:13)
[2020-07-24] MEDS: Levalbuterol Neb 0.63 MG/3 ML IH SCH ×4 (03:37→19:29)
[2020-07-24 07:17] LABS: BUN/Creatinine Ratio 6 (6-26); Blood Urea Nitrogen 5 mg/dL (8-23); Carbon Dioxide 25 mEq/L (23-29); Chloride 113 mEq/L (98-107); Glucose 109 mg/dL (70-105); Magnesium 1.9 mg/dL (1.6-2.6); Osmolality,Calculated 296 (280-300); Phosphorous 2.4 mg/dL (2.7-4.5); Potassium 3.4 mEq/L (3.5-5.1); Sodium 144 mEq/L (136-145); eGFR For African Americans > 60 (> 60); eGFR For Non-African Americans > 60 (> 60)
[2020-07-24 07:21] LABS: Basophils % 0.3 %; Eosinophils # 0.1 K/mcL (0.0-0.6); Eosinophils % 1.2 %; Hematocrit 31.6 % (35.3-44.9); Hemoglobin 10.2 g/dL (11.5-15.4); Immature Granulocytes % 1.2 % (0-4); Lymphocytes # 0.9 K/mcL (0.6-4.6); Lymphocytes % 12.2 %; Mean Corpuscular HGB Conc 32.3 g/dL (31.6-35.5); Mean Corpuscular Hemoglobin 34.3 pg (28.0-33.3); Mean Corpuscular Volume 106.4 fL (83.0-100.0); Mean Platelet Volume 11.1 fL (9.4-12.4); Monocytes # 0.4 K/mcL (0.0-1.3); Monocytes % 4.8 %; Neutrophils # 6.1 K/mcL (1.6-8.9); Platelet Count 197 K/mcL (140-400); Red Blood Count 2.97 M/mcL (3.82-4.97); Segmented Neutrophils % 80.3 %; White Blood Count 7.6 K/mcL (4.3-11.1)
[2020-07-24] MEDS ORDERED: Potassium Phosphate 44 MEQ in 0.9 % Sodium Chloride 250 ML IVPB ONE (08:05)
[2020-07-24] MEDS: OLANZapine 10 MG TAB.RAPDIS PO SCH (09:56)
[2020-07-24] MEDS: *HR* LORazepam 1 MG TABLET PO SCH ×3 (09:56→21:23)
[2020-07-24] MEDS: Thiamine (B-1) 100 MG in 0.9 % Sodium Chloride 50 ML IVPB SCH ×3 (09:56→21:24)
[2020-07-24] MEDS: Aspirin Enteric Coated 81 MG Tablet PO SCH (09:56)
[2020-07-24] MEDS: Folic Acid 1 MG TABLET PO SCH (09:56)
[2020-07-24] MEDS: Cholecalciferol (D-3) 1,000 UNIT (25MCG) TABLET PO SCH (09:56)
[2020-07-24] MEDS: Budesonide/Formoterol 160/4.5 1 PUFF INH IH SCH ×2 (09:58→19:28)
[2020-07-24] MEDS: levoFLOXacin 750 MG TABLET PO SCH (13:58)
[2020-07-24] MEDS: Famotidine 20 MG TABLET PO SCH (21:23)
[2020-07-25] MEDS: Levalbuterol Neb 0.63 MG/3 ML IH SCH ×4 (03:21→22:01)
[2020-07-25 07:11] LABS: Basophils % 0.3 %; Eosinophils # 0.1 K/mcL (0.0-0.6); Hematocrit 31.9 % (35.3-44.9); Hemoglobin 10.3 g/dL (11.5-15.4); Immature Granulocytes % 1.5 % (0-4); Lymphocytes # 1.1 K/mcL (0.6-4.6); Lymphocytes % 15.1 %; Mean Corpuscular HGB Conc 32.3 g/dL (31.6-35.5); Mean Corpuscular Hemoglobin 34.1 pg (28.0-33.3); Mean Corpuscular Volume 105.6 fL (83.0-100.0); Mean Platelet Volume 11.2 fL (9.4-12.4); Monocytes # 0.4 K/mcL (0.0-1.3); Monocytes % 5.9 %; Neutrophils # 5.5 K/mcL (1.6-8.9); Platelet Count 206 K/mcL (140-400); Red Blood Count 3.02 M/mcL (3.82-4.97); Segmented Neutrophils % 76.2 %; White Blood Count 7.2 K/mcL (4.3-11.1)
[2020-07-25 07:31] LABS: BUN/Creatinine Ratio 7 (6-26); Blood Urea Nitrogen 5 mg/dL (8-23); Calcium 9.5 mg/dL (8.6-10.3); Carbon Dioxide 24 mEq/L (23-29); Chloride 114 mEq/L (98-107); Glucose 92 mg/dL (70-105); Magnesium 1.8 mg/dL (1.6-2.6); Osmolality,Calculated 301 (280-300); Phosphorous 3.3 mg/dL (2.7-4.5); Potassium 3.7 mEq/L (3.5-5.1); Sodium 147 mEq/L (136-145); eGFR For African Americans > 60 (> 60); eGFR For Non-African Americans > 60 (> 60)
[2020-07-25] MEDS: Budesonide/Formoterol 160/4.5 1 PUFF INH IH SCH ×2 (08:56→22:01)
[2020-07-25] MEDS: levoFLOXacin 750 MG TABLET PO SCH (09:32)
[2020-07-25] MEDS: OLANZapine 10 MG TAB.RAPDIS PO SCH (09:32)
[2020-07-25] MEDS: Cholecalciferol (D-3) 1,000 UNIT (25MCG) TABLET PO SCH (09:32)
[2020-07-25] MEDS: Aspirin Enteric Coated 81 MG Tablet PO SCH (09:32)
[2020-07-25] MEDS: Folic Acid 1 MG TABLET PO SCH (09:32)
[2020-07-25] MEDS: *HR* LORazepam 1 MG TABLET PO SCH ×3 (09:32→21:26)
[2020-07-25] MEDS: Thiamine (B-1) 100 MG in 0.9 % Sodium Chloride 50 ML IVPB SCH ×3 (09:37→21:35)
[2020-07-25] MEDS: D5% in Water 1,000 ML IVC SCH (09:46)
[2020-07-25] MEDS: Famotidine 20 MG TABLET PO SCH (21:25)
[2020-07-26 01:19] LABS: Basophils % 0.6 %; Eosinophils # 0.1 K/mcL (0.0-0.6); Eosinophils % 1.4 %; Hematocrit 31.9 % (35.3-44.9); Hemoglobin 10.4 g/dL (11.5-15.4); Immature Granulocytes % 1.7 % (0-4); Lymphocytes # 1.1 K/mcL (0.6-4.6); Lymphocytes % 16.1 %; Mean Corpuscular HGB Conc 32.6 g/dL (31.6-35.5); Mean Corpuscular Hemoglobin 33.7 pg (28.0-33.3); Mean Corpuscular Volume 103.2 fL (83.0-100.0); Mean Platelet Volume 10.7 fL (9.4-12.4); Monocytes # 0.4 K/mcL (0.0-1.3); Monocytes % 6.1 %; Neutrophils # 5.3 K/mcL (1.6-8.9); Platelet Count 177 K/mcL (140-400); Red Blood Count 3.09 M/mcL (3.82-4.97); Segmented Neutrophils % 74.1 %; White Blood Count 7.1 K/mcL (4.3-11.1)
[2020-07-26 01:40] LABS: BUN/Creatinine Ratio 8 (6-26); Blood Urea Nitrogen 6 mg/dL (8-23); Calcium 9.7 mg/dL (8.6-10.3); Carbon Dioxide 24 mEq/L (23-29); Chloride 107 mEq/L (98-107); Glucose 105 mg/dL (70-105); Magnesium 1.8 mg/dL (1.6-2.6); Osmolality,Calculated 290 (280-300); Phosphorous 2.5 mg/dL (2.7-4.5); Potassium 3.3 mEq/L (3.5-5.1); Sodium 141 mEq/L (136-145); eGFR For African Americans > 60 (> 60); eGFR For Non-African Americans > 60 (> 60)
[2020-07-26] MEDS: D5% in Water 1,000 ML IVC SCH (01:58)
[2020-07-26] MEDS: Levalbuterol Neb 0.63 MG/3 ML IH SCH ×4 (03:28→21:21)
[2020-07-26] MEDS: *HR* LORazepam 1 MG TABLET PO SCH ×3 (08:29→22:04)
[2020-07-26] MEDS: Cholecalciferol (D-3) 1,000 UNIT (25MCG) TABLET PO SCH (08:29)
[2020-07-26] MEDS: Aspirin Enteric Coated 81 MG Tablet PO SCH (08:29)
[2020-07-26] MEDS: levoFLOXacin 750 MG TABLET PO SCH (08:30)
[2020-07-26] MEDS: Thiamine (B-1) 100 MG in 0.9 % Sodium Chloride 50 ML IVPB SCH ×3 (08:30→20:10)
[2020-07-26] MEDS: Folic Acid 1 MG TABLET PO SCH (08:30)
[2020-07-26] MEDS: OLANZapine 10 MG TAB.RAPDIS PO SCH (08:30)
[2020-07-26] MEDS: Budesonide/Formoterol 160/4.5 1 PUFF INH IH SCH ×2 (10:42→21:22)
[2020-07-26] MEDS: Potassium Chloride Elixir 20 MEQ/15 ML UDC PO SCH ×2 (15:51→22:06)
[2020-07-26] MEDS: Famotidine 20 MG TABLET PO SCH (22:04)
[2020-07-27] MEDS: Levalbuterol Neb 0.63 MG/3 ML IH SCH ×4 (03:46→22:34)
[2020-07-27 05:11] LABS: Basophils % 0.5 %; Eosinophils # 0.1 K/mcL (0.0-0.6); Eosinophils % 1.4 %; Hematocrit 31.7 % (35.3-44.9); Hemoglobin 10.2 g/dL (11.5-15.4); Immature Granulocytes % 1.8 % (0-4); Lymphocytes # 1.1 K/mcL (0.6-4.6); Lymphocytes % 14.1 %; Mean Corpuscular HGB Conc 32.2 g/dL (31.6-35.5); Mean Corpuscular Hemoglobin 34.5 pg (28.0-33.3); Mean Corpuscular Volume 107.1 fL (83.0-100.0); Mean Platelet Volume 10.9 fL (9.4-12.4); Monocytes # 0.5 K/mcL (0.0-1.3); Neutrophils # 5.9 K/mcL (1.6-8.9); Platelet Count 172 K/mcL (140-400); Red Blood Count 2.96 M/mcL (3.82-4.97); Red Cell Distribution Width 14.9 % (11.5-14.5); Segmented Neutrophils % 76.2 %; White Blood Count 7.7 K/mcL (4.3-11.1)
[2020-07-27 05:33] LABS: BUN/Creatinine Ratio 8 (6-26); Blood Urea Nitrogen 7 mg/dL (8-23); Calcium 9.7 mg/dL (8.6-10.3); Carbon Dioxide 26 mEq/L (23-29); Chloride 113 mEq/L (98-107); Glucose 100 mg/dL (70-105); Magnesium 1.9 mg/dL (1.6-2.6); Osmolality,Calculated 296 (280-300); Phosphorous 2.4 mg/dL (2.7-4.5); Potassium 4.2 mEq/L (3.5-5.1); Sodium 144 mEq/L (136-145); eGFR For African Americans > 60 (> 60); eGFR For Non-African Americans > 60 (> 60)
[2020-07-27] MEDS: OLANZapine 10 MG TAB.RAPDIS PO SCH (09:53)
[2020-07-27] MEDS: Aspirin Enteric Coated 81 MG Tablet PO SCH (09:53)
[2020-07-27] MEDS: Cholecalciferol (D-3) 1,000 UNIT (25MCG) TABLET PO SCH (09:53)
[2020-07-27] MEDS: Folic Acid 1 MG TABLET PO SCH (09:53)
[2020-07-27] MEDS: *HR* LORazepam 1 MG TABLET PO SCH ×3 (09:54→21:15)
[2020-07-27] MEDS: Thiamine (B-1) 100 MG in 0.9 % Sodium Chloride 50 ML IVPB SCH ×3 (09:56→21:13)
[2020-07-27] MEDS: Budesonide/Formoterol 160/4.5 1 PUFF INH IH SCH ×2 (10:35→22:34)
[2020-07-27] MEDS: Famotidine 20 MG TABLET PO SCH (21:17)
[2020-07-28] MEDS: Levalbuterol Neb 0.63 MG/3 ML IH SCH ×4 (04:05→22:56)
[2020-07-28 06:11] LABS: Basophils % 0.6 %; Eosinophils # 0.1 K/mcL (0.0-0.6); Eosinophils % 1.5 %; Hematocrit 31.8 % (35.3-44.9); Hemoglobin 10.4 g/dL (11.5-15.4); Immature Granulocytes % 2.3 % (0-4); Lymphocytes # 1.2 K/mcL (0.6-4.6); Lymphocytes % 18.1 %; Mean Corpuscular HGB Conc 32.7 g/dL (31.6-35.5); Mean Corpuscular Volume 107.1 fL (83.0-100.0); Mean Platelet Volume 11.3 fL (9.4-12.4); Monocytes # 0.5 K/mcL (0.0-1.3); Monocytes % 6.8 %; Neutrophils # 4.7 K/mcL (1.6-8.9); Platelet Count 184 K/mcL (140-400); Red Blood Count 2.97 M/mcL (3.82-4.97); Red Cell Distribution Width 15.3 % (11.5-14.5); Segmented Neutrophils % 70.7 %; White Blood Count 6.6 K/mcL (4.3-11.1)
[2020-07-28 06:31] LABS: BUN/Creatinine Ratio 9 (6-26); Blood Urea Nitrogen 8 mg/dL (8-23); Calcium 9.8 mg/dL (8.6-10.3); Carbon Dioxide 25 mEq/L (23-29); Chloride 106 mEq/L (98-107); Glucose 101 mg/dL (70-105); Magnesium 1.9 mg/dL (1.6-2.6); Osmolality,Calculated 290 (280-300); Phosphorous 4.9 mg/dL (2.7-4.5); Potassium 3.5 mEq/L (3.5-5.1); Sodium 141 mEq/L (136-145); eGFR For African Americans > 60 (> 60); eGFR For Non-African Americans 60 (> 60)
[2020-07-28] MEDS: *HR* LORazepam 1 MG TABLET PO SCH ×3 (09:32→23:36)
[2020-07-28] MEDS: OLANZapine 10 MG TAB.RAPDIS PO SCH (09:32)
[2020-07-28] MEDS: Aspirin Enteric Coated 81 MG Tablet PO SCH (09:32)
[2020-07-28] MEDS: Cholecalciferol (D-3) 1,000 UNIT (25MCG) TABLET PO SCH (09:32)
[2020-07-28] MEDS: Folic Acid 1 MG TABLET PO SCH (09:32)
[2020-07-28] MEDS: Budesonide/Formoterol 160/4.5 1 PUFF INH IH SCH ×2 (10:37→23:03)
[2020-07-28] MEDS ORDERED: 0.9 % Sodium Chloride 1,000 ML IV ONE (15:13)
[2020-07-28] MEDS ORDERED: 0.9 % Sodium Chloride 1,000 ML IVC ONE (18:19)
[2020-07-28] MEDS: Famotidine 20 MG TABLET PO SCH (23:36)
[2020-07-29] MEDS: Levalbuterol Neb 0.63 MG/3 ML IH SCH ×4 (03:52→21:50)
[2020-07-29] MEDS: Budesonide/Formoterol 160/4.5 1 PUFF INH IH SCH ×2 (10:01→21:50)
[2020-07-29] MEDS: Cholecalciferol (D-3) 1,000 UNIT (25MCG) TABLET PO SCH (10:05)
[2020-07-29] MEDS: *HR* LORazepam 1 MG TABLET PO SCH ×3 (10:05→21:20)
[2020-07-29] MEDS: Aspirin Enteric Coated 81 MG Tablet PO SCH (10:05)
[2020-07-29] MEDS: OLANZapine 10 MG TAB.RAPDIS PO SCH (10:05)
[2020-07-29] MEDS: Folic Acid 1 MG TABLET PO SCH (10:05)
[2020-07-29] MEDS ORDERED: 0.9 % Sodium Chloride 1,000 ML IV ONE ×2 (12:01→14:57)
[2020-07-29] MEDS: Famotidine 20 MG TABLET PO SCH (21:20)
[2020-07-29] MEDS: Thiamine (B-1) 100 MG in 0.9 % Sodium Chloride 50 ML IVPB SCH (22:01)
[2020-07-30] MEDS: Levalbuterol Neb 0.63 MG/3 ML IH SCH ×4 (03:57→23:00)
[2020-07-30] MEDS: Folic Acid 1 MG TABLET PO SCH (08:23)
[2020-07-30] MEDS: OLANZapine 10 MG TAB.RAPDIS PO SCH (08:23)
[2020-07-30] MEDS: Aspirin Enteric Coated 81 MG Tablet PO SCH (08:23)
[2020-07-30] MEDS: *HR* LORazepam 1 MG TABLET PO SCH ×3 (08:23→20:28)
[2020-07-30] MEDS: Cholecalciferol (D-3) 1,000 UNIT (25MCG) TABLET PO SCH (08:24)
[2020-07-30 08:52] LABS: Hematocrit 29.3 % (35.3-44.9); Hemoglobin 9.4 g/dL (11.5-15.4); Mean Corpuscular HGB Conc 32.1 g/dL (31.6-35.5); Mean Corpuscular Hemoglobin 35.3 pg (28.0-33.3); Mean Corpuscular Volume 110.2 fL (83.0-100.0); Mean Platelet Volume 10.5 fL (9.4-12.4); Platelet Count 199 K/mcL (140-400); Red Blood Count 2.66 M/mcL (3.82-4.97); White Blood Count 4.9 K/mcL (4.3-11.1)
[2020-07-30 09:32] LABS: Lymphocytes # 1.2 K/mcL (0.6-4.6); Monocytes # 0.2 K/mcL (0.0-1.3); Neutrophils # 3.5 K/mcL (1.6-8.9)
[2020-07-30 09:33] LABS: Macrocytosis Present (Not Present); Platelet Estimate Normal (Normal); Toxic Granulation Present (Not Present)
[2020-07-30] MEDS: Budesonide/Formoterol 160/4.5 1 PUFF INH IH SCH ×2 (09:37→23:00)
[2020-07-30] MEDS: Famotidine 20 MG TABLET PO SCH (20:30)
[2020-07-31] MEDS: Levalbuterol Neb 0.63 MG/3 ML IH SCH ×4 (03:56→22:53)
[2020-07-31] MEDS: Aspirin Enteric Coated 81 MG Tablet PO SCH (08:38)
[2020-07-31] MEDS: Folic Acid 1 MG TABLET PO SCH (08:38)
[2020-07-31] MEDS: Cholecalciferol (D-3) 1,000 UNIT (25MCG) TABLET PO SCH (08:38)
[2020-07-31] MEDS: OLANZapine 10 MG TAB.RAPDIS PO SCH (08:38)
[2020-07-31] MEDS: *HR* LORazepam 1 MG TABLET PO SCH ×2 (08:38→15:07)
[2020-07-31] MEDS: Budesonide/Formoterol 160/4.5 1 PUFF INH IH SCH ×2 (10:18→22:53)
[2020-07-31 11:55] LABS: Basophils % 0.5 %; Eosinophils # 0.1 K/mcL (0.0-0.6); Eosinophils % 1.4 %; Hematocrit 29.5 % (35.3-44.9); Hemoglobin 9.4 g/dL (11.5-15.4); Immature Granulocytes % 1.6 % (0-4); Lymphocytes # 0.8 K/mcL (0.6-4.6); Lymphocytes % 17.7 %; Mean Corpuscular HGB Conc 31.9 g/dL (31.6-35.5); Mean Corpuscular Hemoglobin 34.7 pg (28.0-33.3); Mean Corpuscular Volume 108.9 fL (83.0-100.0); Mean Platelet Volume 10.5 fL (9.4-12.4); Monocytes # 0.3 K/mcL (0.0-1.3); Neutrophils # 3.2 K/mcL (1.6-8.9); Platelet Count 186 K/mcL (140-400); Red Blood Count 2.71 M/mcL (3.82-4.97); Segmented Neutrophils % 71.8 %; White Blood Count 4.4 K/mcL (4.3-11.1)
[2020-07-31 17:53] VITALS: BP 122/69
== END 2020-07-31 19:10 | disposition home health service (06) | DRG 872 ==
LOC: 3ANU 14:10 → EMEROOARM 14:10 → SUATTDRO 17:45 → 3ANU 18:28
PROVIDERS: ADMIT Student in an Organized Health Care Education/Training Program; ATTEND Internal Medicine

== ENCOUNTER 2020-09-01 16:23 | Observation (INO) ==
[2020-09-01] MEDS ORDERED: 0.9 % Sodium Chloride 1,000 ML IVC ONE ×2 (16:38→19:27)
[2020-09-01] MEDS ORDERED: Cefepime HCl 1,000 MG in 0.9 % Sodium Chloride Mini Bag 100 ML IVPB STA (16:49)
[2020-09-01] MEDS ORDERED: Vancomycin 1,500 MG/265 ML IV.SOLN IVPB ONE (16:49)
[2020-09-01] MEDS ORDERED: Cefepime HCl 1,000 MG in Water for inj. (sterile) 10 ML IVP STA (16:54)
[2020-09-01 17:29] LABS: Basophils % 0.2 %; Eosinophils # 0.1 K/mcL (0.0-0.6); Eosinophils % 0.7 %; Hematocrit 43.3 % (35.3-44.9); Hemoglobin 13.3 g/dL (11.5-15.4); Immature Granulocytes % 0.4 % (0-4); Lymphocytes # 0.5 K/mcL (0.6-4.6); Lymphocytes % 4.4 %; Mean Corpuscular HGB Conc 30.7 g/dL (31.6-35.5); Mean Corpuscular Hemoglobin 34.5 pg (28.0-33.3); Mean Corpuscular Volume 112.2 fL (83.0-100.0); Mean Platelet Volume 10.8 fL (9.4-12.4); Monocytes # 0.5 K/mcL (0.0-1.3); Monocytes % 4.7 %; Neutrophils # 9.4 K/mcL (1.6-8.9); Platelet Count 371 K/mcL (140-400); Red Blood Count 3.86 M/mcL (3.82-4.97); Segmented Neutrophils % 89.6 %; White Blood Count 10.5 K/mcL (4.3-11.1)
[2020-09-01 17:35] LABS: INR 1.2; Prothrombin Time 13.3 Seconds (9.4-12.1)
[2020-09-01 17:39] LABS: VBG HCO3 25 mEq/L (21-27); VBG PCO2 49 mmHg (41-51); VBG PH 7.32 pH Units (7.32-7.42); VBG PO2 43 mmHg (25-50)
[2020-09-01 18:11] LABS: Macrocytosis Present (Not Present)
[2020-09-01 18:12] LABS: Platelet Estimate Normal (Normal)
[2020-09-01 18:14] LABS: Alanine Aminotransferase 58 Units/L (7-52); Albumin 3.3 g/dL (3.5-5.7); Alkaline Phosphatase 133 Units/L (34-104); Aspartate Amino Transferase 203 Units/L (13-39); BUN/Creatinine Ratio 11 (6-26); Bilirubin,Direct 0.1 mg/dL (0.0-0.2); Bilirubin,Indirect 0.3 mg/dL (0.0-1.0); Bilirubin,Total 0.4 mg/dL (0.3-1.0); Blood Urea Nitrogen 11 mg/dL (8-23); Calcium 9.6 mg/dL (8.6-10.3); Carbon Dioxide 22 mEq/L (23-29); Chloride 105 mEq/L (98-107); Globulin 3.4 g/dL (2.4-3.5); Glucose 108 mg/dL (70-105); Osmolality,Calculated 288 (280-300); Potassium 3.8 mEq/L (3.5-5.1); Sodium 139 mEq/L (136-145); Total Protein 6.7 g/dL (6.4-8.9); Troponin I 0.03 ng/mL (< 0.04); eGFR For African Americans > 60 (> 60); eGFR For Non-African Americans 57 (> 60)
[2020-09-01 18:33] LABS: Adenovirus Not Detected (Not Detect); Bordetella Pertussis Not Detected (Not Detect); Chlamydophila pneumoniae Not Detected (Not Detect); Coronavirus 229E Not Detected (Not Detect); Coronavirus HKU1 Not Detected (Not Detect); Coronavirus NL63 Not Detected (Not Detect); Coronavirus OC43 Not Detected (Not Detect); Human Metapneumovirus Not Detected (Not Detect); Human Rhinovirus/Enterovirus Not Detected (Not Detect); Influenza A Subtype 2009 H1 Not Detected (Not Detect); Influenza B Not Detected (Not Detect); Mycoplasma pneumoniae Not Detected (Not Detect); Parainfluenza Virus 1 Not Detected (Not Detect); Parainfluenza Virus 2 Not Detected (Not Detect); Parainfluenza Virus 3 Not Detected (Not Detect); Parainfluenza Virus 4 Not Detected (Not Detect); Respiratory Syncytial Virus Not Detected (Not Detect); SARS-CoV-2 Not Detected (Not Detect)
[2020-09-01 19:29] LABS: Bacteria,Urine Few per hpf (None-Few); Bilirubin,Urine Negative (Negative); Blood,Urine Large (Negative); Clarity,Urine Ex.Turbid (Clear); Color,Urine Yellow (Yellow); Glucose,Urine (UA) Normal (Normal); Hyaline Casts,Urine Few per lpf (None Seen); Ketones,Urine Negative (Negative); Leukocyte Esterase,Urine Large (Negative); Mucus,Urine Few per lpf (None-Few); Nitrite,Urine Negative (Negative); PH,Urine 7.5 pH Units (5.0-8.0); Protein,Urine 100 mg/dL (Neg-Trace); Specific Gravity,Urine 1.012 (1.010-1.025); Squamous Epithelial Cell,Urine Few per hpf (None-Few); Transitional Epi Cells,Urine Few per hpf (None-Few); Urobilinogen,Urine Normal (Normal); WBC,Urine TNTC per hpf (0-3)
[2020-09-01] MEDS ORDERED: Acetaminophen 325 MG TABLET PO PRN (21:04)
[2020-09-01] MEDS ORDERED: Naloxone 0.4 MG/ML INJ IVP PRN (21:04)
[2020-09-01] MEDS ORDERED: Ondansetron 4 MG/2 ML VIAL IVP PRN (21:04)
[2020-09-01] MEDS: Ringers Solution, Lactated 1,000 ML IVC SCH (22:03)
[2020-09-01] MEDS: Budesonide/Formoterol 160/4.5 1 PUFF INH IH SCH (22:40)
[2020-09-02] MEDS ORDERED: Cefepime HCl 2,000 MG in 0.9 % Sodium Chloride Mini Bag 100 ML IVP SCH
[2020-09-02] MEDS: Ringers Solution, Lactated 1,000 ML IVC SCH (05:47)
[2020-09-02 06:26] LABS: INR 1.3; Prothrombin Time 14.7 Seconds (9.4-12.1)
[2020-09-02 06:28] LABS: Basophils % 0.2 %; Eosinophils # 0.1 K/mcL (0.0-0.6); Eosinophils % 1.2 %; Hematocrit 33.5 % (35.3-44.9); Immature Granulocytes % 0.3 % (0-4); Lymphocytes # 0.7 K/mcL (0.6-4.6); Lymphocytes % 5.7 %; Mean Corpuscular HGB Conc 30.4 g/dL (31.6-35.5); Mean Corpuscular Hemoglobin 33.6 pg (28.0-33.3); Mean Corpuscular Volume 110.2 fL (83.0-100.0); Mean Platelet Volume 10.4 fL (9.4-12.4); Monocytes # 0.5 K/mcL (0.0-1.3); Monocytes % 4.2 %; Neutrophils # 10.3 K/mcL (1.6-8.9); Platelet Count 264 K/mcL (140-400); Red Blood Count 3.04 M/mcL (3.82-4.97); Red Cell Distribution Width 14.1 % (11.5-14.5); Segmented Neutrophils % 88.4 %; White Blood Count 11.6 K/mcL (4.3-11.1)
[2020-09-02 06:32] LABS: Hemoglobin 10.2 g/dL (11.5-15.4)
[2020-09-02 06:47] LABS: Platelet Estimate Normal (Normal)
[2020-09-02 06:48] LABS: Alanine Aminotransferase 38 Units/L (7-52); Albumin 2.5 g/dL (3.5-5.7); Alkaline Phosphatase 97 Units/L (34-104); Aspartate Amino Transferase 84 Units/L (13-39); BUN/Creatinine Ratio 12 (6-26); Bilirubin,Total 0.3 mg/dL (0.3-1.0); Blood Urea Nitrogen 9 mg/dL (8-23); Calcium 8.4 mg/dL (8.6-10.3); Carbon Dioxide 23 mEq/L (23-29); Chloride 113 mEq/L (98-107); Cholesterol 101 mg/dL (< 200); Globulin 2.4 g/dL (2.4-3.5); Glucose 95 mg/dL (70-105); HDL Cholesterol 34 mg/dL (40-59); LDL Cholesterol,Calculated 47 mg/dL (< 100); Magnesium 1.7 mg/dL (1.6-2.6); Osmolality,Calculated 292 (280-300); Phosphorous 3.3 mg/dL (2.7-4.5); Potassium 3.7 mEq/L (3.5-5.1); Sodium 142 mEq/L (136-145); Total Protein 4.9 g/dL (6.4-8.9); Triglycerides 102 mg/dL (< 150); eGFR For African Americans > 60 (> 60); eGFR For Non-African Americans > 60 (> 60)
[2020-09-02 07:01] LABS: Hepatitis B Surface Antigen Nonreactive (Nonreactive)
[2020-09-02 07:30] LABS: Hepatitis C Virus Antibody Nonreactive (Nonreactive)
[2020-09-02 07:31] LABS: Hepatitis A Antibody IgM Nonreactive (Nonreactive); Hepatitis B Core IgM Nonreactive (Nonreactive)
[2020-09-02] MEDS: Folic Acid 1 MG TABLET PO SCH (08:40)
[2020-09-02] MEDS: Piperacillin/Tazobactam 3.375 GM in 0.9 % Sodium Chloride Mini Bag 100 ML IVPB SCH ×2 (08:40→15:34)
[2020-09-02] MEDS: Aspirin Enteric Coated 81 MG Tablet PO SCH (08:40)
[2020-09-02] MEDS: Budesonide/Formoterol 160/4.5 1 PUFF INH IH SCH ×2 (09:33→19:58)
[2020-09-02] MEDS ORDERED: Ipratropium/Albuterol Neb 3 ML IH PRN (15:09)
[2020-09-02] MEDS: OLANZapine 5 MG TAB.RAPDIS PO SCH (15:34)
[2020-09-02] MEDS: *HR* Heparin 5,000 UNIT/ML VIAL SQ SCH (17:51)
[2020-09-02] MEDS ORDERED: Famotidine 20 MG TABLET PO SCH (21:00)
[2020-09-02] MEDS: diazePAM 10 MG TABLET PO SCH (21:07)
[2020-09-02] MEDS: Gabapentin 400 MG CAPSULE PO SCH (21:07)
[2020-09-03] MEDS: Piperacillin/Tazobactam 3.375 GM in 0.9 % Sodium Chloride Mini Bag 100 ML IVPB SCH ×2 (00:38→09:53)
[2020-09-03] MEDS: *HR* Heparin 5,000 UNIT/ML VIAL SQ SCH (05:52)
[2020-09-03 07:16] LABS: Basophils % 0.4 %; Eosinophils # 0.2 K/mcL (0.0-0.6); Eosinophils % 2.2 %; Hematocrit 33.9 % (35.3-44.9); Hemoglobin 10.6 g/dL (11.5-15.4); Immature Granulocytes % 0.5 % (0-4); Lymphocytes # 0.7 K/mcL (0.6-4.6); Mean Corpuscular HGB Conc 31.3 g/dL (31.6-35.5); Mean Corpuscular Hemoglobin 34.5 pg (28.0-33.3); Mean Corpuscular Volume 110.4 fL (83.0-100.0); Mean Platelet Volume 10.4 fL (9.4-12.4); Monocytes # 0.3 K/mcL (0.0-1.3); Monocytes % 3.3 %; Neutrophils # 8.2 K/mcL (1.6-8.9); Platelet Count 273 K/mcL (140-400); Red Blood Count 3.07 M/mcL (3.82-4.97); Red Cell Distribution Width 13.7 % (11.5-14.5); Segmented Neutrophils % 86.6 %; White Blood Count 9.5 K/mcL (4.3-11.1)
[2020-09-03 07:36] LABS: BUN/Creatinine Ratio 11 (6-26); Blood Urea Nitrogen 8 mg/dL (8-23); Calcium 8.8 mg/dL (8.6-10.3); Carbon Dioxide 24 mEq/L (23-29); Chloride 107 mEq/L (98-107); Glucose 76 mg/dL (70-105); Magnesium 1.8 mg/dL (1.6-2.6); Osmolality,Calculated 289 (280-300); Phosphorous 3.8 mg/dL (2.7-4.5); Potassium 3.3 mEq/L (3.5-5.1); Sodium 141 mEq/L (136-145); eGFR For African Americans > 60 (> 60); eGFR For Non-African Americans > 60 (> 60)
[2020-09-03] MEDS: Budesonide/Formoterol 160/4.5 1 PUFF INH IH SCH (08:58)
[2020-09-03] MEDS ORDERED: Tiotropium 10 INH DOSE IH SCH (09:00)
[2020-09-03] MEDS ORDERED: Topiramate 25 MG TABLET PO SCH (09:00)
[2020-09-03] MEDS: Gabapentin 400 MG CAPSULE PO SCH (09:53)
[2020-09-03] MEDS: Aspirin Enteric Coated 81 MG Tablet PO SCH (09:53)
[2020-09-03] MEDS: Folic Acid 1 MG TABLET PO SCH (09:53)
[2020-09-03] MEDS: OLANZapine 5 MG TAB.RAPDIS PO SCH (09:53)
[2020-09-03] MEDS: diazePAM 10 MG TABLET PO SCH (09:57)
[2020-09-03 11:04] VITALS: BP 127/80
== END 2020-09-03 14:12 | disposition home health service (06) ==
LOC: EMEROOARM 16:23 → 3ANU 16:23 → SUATTDRO 20:48 → 3BNU 21:05
PROVIDERS: ADMIT Internal Medicine; ATTEND Internal Medicine